=== PATIENT | male | born 1955 | race Caucasian/White ===

== ENCOUNTER 2024-07-27 08:21 | Outpatient (OUT) | payer MEDICARE, SELFPAY ==
[2024-07-27 08:50] LABS: Basophils Absolute Auto 0.1 10^3/uL (0.0-0.1); Basophils Percent Auto 0.6 % (0.2-2.0); Eosinophils Absolute Auto 0.3 10^3/uL (0.0-0.7); Eosinophils Percent Auto 2.4 % (0.9-7.0); Hematocrit 36.6 % (42.0-54.0); Hemoglobin 11.6 g/dL (14.0-18.0); Immature Granulocytes Pct Auto 0.9 % (0.0-0.5); Lymphocytes Absolute Auto 1.8 10^3/uL (1.2-3.8); Mean Corpuscular HGB Conc 31.7 g/dL (29.9-35.2); Mean Corpuscular Hemoglobin 29.1 pg (25.9-34.0); Monocytes Absolute Auto 0.8 10^3/uL (0.3-0.8); Monocytes Percent Auto 7.8 % (1.7-12.0); Neutrophils Absolute Auto 7.5 10^3/uL (1.4-6.5); Neutrophils Percent Auto 71.3 % (43.0-75.0); Platelet Count 387 10^3/uL (150-450); Red Blood Count 3.98 10^6/uL (4.70-6.10); Red Cell Distribution Width 14.5 % (11.0-15.0); White Blood Count 10.5 10^3/uL (4.0-11.0)
[2024-07-27 09:36] LABS: Alanine Aminotransferase 30 U/L (16-63); Albumin Globulin Ratio 0.9; Albumin Level 3.4 g/dL (3.4-5.0); Alkaline Phosphatase 66 U/L (46-116); Amylase 87 U/L (25-115); Anion Gap 14.4; Aspartate Amino Transferase 21 U/L (15-37); Bilirubin Direct 0.3 mg/dL (0.0-0.2); Bilirubin Total 0.7 mg/dL (0.2-1.0); Calcium 9.2 mg/dL (8.5-10.1); Carbon Dioxide 27.2 mmol/L (21.0-32.0); Chloride 102 mmol/L (98-107); Estimated GFR (African America 26 (>=60); Estimated GFR (Non-African Ame 21 (>=60); Globulin 3.6 g/dL; Glucose 242 mg/dL (74-106); Potassium 4.6 mmol/L (3.5-5.1); Sodium 139 mmol/L (136-145); TSH W/ REFLEX FT4 2.252 uIU/mL (0.358-3.740); Troponin I High Sensitivity 9.4 pg/mL (4.0-76.1)
== END 2024-07-27 08:22 | disposition home or self-care (01) ==
LOC: LAB 08:29
PROVIDERS: PCP Family Medicine; Visit Provider Family Medicine
DX: R53.83 Other fatigue (principal); Z79.899 Other long term (current) drug therapy; R10.84 Generalized abdominal pain; R07.2 Precordial pain; I25.10 Atherosclerotic heart disease of native coronary artery without angina pectoris
CPT/HCPCS: 36415; 80048; 80076; 82150; 83690; 84443; 84484; 85025

== ENCOUNTER 2024-08-01 07:01 | Outpatient (OUT) | payer MEDICARE, SELFPAY ==
--- NOTE | 2024-08-01 07:06 | US_ITS ---
The [address] [address] Patient Name: EMILEE CASTAÑEDA MRN: [id number] date: 1955 Sex: M Assigned Patient Location: [place] Current Patient Location: US Accession/Order Number: [id number] Exam Date: 08/01/2024 07:08 Report Date: 08/01/2024 08:10 At the request of: MOMO RUSH Procedure: US right upper quadrant EXAM: US right upper quadrant HISTORY: Generalized abdominal pain R10.84 COMPARISON: None. TECHNIQUE: Grayscale, color and Doppler FINDINGS: The liver measures 14.5 cm in length. The liver is normal in size, contour and echotexture. Hepatopedal flow in the main portal vein with velocity of 30 cm/s. The gallbladder is prominent in size. The wall is thickened measuring 6.5 mm. Negative sonographic Anand sign. The common bile duct measures 6.7 mm. Echogenic material layering dependently likely sludge/cholelithiasis. The visualized pancreatic body demonstrates no focal mass The right kidney measures 11.2 x 5.6 x 7.0 cm. The cortex is thinned measuring 8 mm. Diffuse increase in cortical echotexture. There is a hypoechogenic halo surrounding the kidney possibly perinephric fat No free fluid Call result initiated to operations US/US right upper quadrant IMPRESSION: Gallbladder wall thickening suggesting cholecystitis with underlying cholelithiasis/gallbladder sludge Electronically authenticated by: NANCY LUCIA Date: 08/01/2024 08:10
--- OUTSIDE RECORDS SUMMARY | 2024-08-01 07:06 | XMS_ITS | CCD ---
Author Organization [facility] Care Team Providers Care Meal Room Hand Name Role Phone UNKNOWN, PROVIDER Attending Unavailable ADRI, DUSTY REVELES Primary Care Unavailabl e Unavailable Unavailable Dusty Rush Unavailable Unavailable Unavailable MD Osvaldo Almonte Attending Provider NON STAFF Primary Care Provider Unavailabl e ADRI, DR DUSTY Alonso Admitting Unavailable NADEREJack, DR DUSTY Alonso Attending Unavailable NADERER, DR DUSTY Alonso Primary Care Unavailable NADERER, DR DUSTY Alonso Consulting Unavailable NADERER, DR DUSTY Alonso Admitting Unavailable NADERER, DR DUSTY Alonso Attending Unavailable NADERER, DR DUSTY Alonso Primary Care Unavailable NADERER, DR DUSTY Alonso Consulting Unavailable NADEREJack, DR DUSTY Alonso Admitting Unavailable NADEREJack, DR DUSTY Alonso Attending Unavailable NADEREJack, DR DUSTY Alonso Primary Care Unavailable NADERER, DR DUSTY Alonso Consulting Unavailable NADERER, DR DUSTY Alonso Primary Care Unavailable ELIEL, DR BLAKE Santiago Admitting Unavailable ELIEL, DR BLAKE Santiago Attending Unavailable ELIEL, DR BLAKE Santiago Consulting Unavailable PAY, DR HOLLINS Consulting Unavailable SOLE MENDOZA Consulting Unavailable CELAYA, GEOFFREY Consulting Unavailable MERINO, RADHA Consulting Unavailable NEFCYMINOO Consulting Unavailable NON STAFF Primary Care Provider Unavailabl DO Linden Roger Attending Provider [phone] Osvaldo Almonte Admitting Unavailable Osvaldo Almonte Attending Unavailable NON STAFF Primary Care Unavailable Linden Garnica Admitting Unavailable Linden Garnica Attending Unavailable NON STAFF Primary Care Unavailable Linden Garnica Unavailable Steven, Dr. Kris Stout Attending Unava jayde Harirs, Dr. Kris Stout Referring Meghava jayde Rush, Dr. Dusty Reveles Primary Care Unavai DUSTY Carlos Referring Unavailabl e NADERER, DUSTY REVELES Primary Care Unavailabl e NADDUSTY DIETZ Referring Unavailabl e NADERER, DUSTY REVELES Primary Care Unavailabl e NADNOEL, DUSTY Attending Unavailable Allergies Allergy Classification Reported Allergen(s) Allergy Type Date of Onset Reaction(s) Facility (13 sources) moxifloxacin; Translations: [Avelox TABS] Drug Allergy Swelling -[facility]-Dashawn 250 DO Work Phone: (1 source) moxifloxacin Drug Allergy 06-05-2013 [facility] Repository Medications Current Medications Medication Drug Class(es) Dates Sig (Normalized) Sig (Original) amoxicillin 875 mg / clavulanate 125 mg oral tablet (1 source) Penicillin-class Antibacterial Start: 04-07-2024 take 1 tablet by mouth every twelve hours Amoxicillin-Pot Clavulanate Active 1 TAB PO Every 12 hours 20 10 April 07, 2024 12:00am aspirin 81 mg delayed release oral tablet (7 sources) Platelet Aggregation Inhibitor, Nonsteroidal Anti-inflammatory Drug Start: 04-07-2024 Aspirin (Adult Low Dose Aspirin) 81 mg tablet,delayed release (DR/EC) Active 81 MG PO Daily April 07, 2024 12:00am take 1 tablet by mouth once luzmaria y Aspirin 81 MG Oral Tablet Delayed Release TAKE 1 TABLET DAILY. Quantity: 90 Refills: 3 Ordered: 29-Jul-2023 Kris Harris DO Active Aspirin 81 Activ e atenolol 25 mg oral tablet (8 sources) beta-Adrenergic Oleg Start: 04-07-2024 take 25 mg by mouth once daily Atenolol Active 25 MG PO Daily April 07, 2024 12:00am Start: 05-29-2021 take 1 tablet by bird th once daily Atenolol 100 MG Oral Tablet TAKE 1 TABLET DAILY. Quantity: 90 Refills: 3 Ordered: 29-Jul-2023 Kris Harris DO Start : 29-May-2021 Active Atenolol Active dapagliflozin 5 mg oral tablet (8 sources) Sodium-Glucose Cotransporter 2 Inhibitor Start: 04-07-2024 take 1 tablet by mouth once daily Dapagliflozin Propanediol (Farxiga) 5 mg tablet Active 5 MG PO Daily April 07, 2024 12:00am Start: 04-14-2022 take 1 tablet by bird th once daily in the morning Farxiga 10 MG Oral Tablet TAKE 1 TABLET BY MOUTH EVERY MORNING Quantity: 0 Refills: 0 Ordered: 14-Apr-2022 DO Start : 14-Apr-2022 Active Farxiga Active 0.5 ml dulaglutide 1.5 mg/ml auto-injector (3 sources) GLP-1 Receptor Agonist Start: 04-07-2024 Dulaglutide (Trulicity) 0.75 mg/0.5 mL pen injector Active 0.75 MG SUBCUT every week April 07, 2024 12:00am inject 1 [IU] by sub cutaneous injection every week Trulicity 1.5 MG/0.5ML Subcutaneous Solution Pen-injector INJECT 1 UNIT Weekly Quantity: 0 Refills: 0 Ordered: 29-Jul-2023 Active fenofibrate 50 mg oral capsule (16 sources) Peroxisome Proliferator Receptor alpha Agonist Start: 04-07-2024 take 50 mg by mouth once daily Fenofibrate Active 50 MG PO Daily April 07, 2024 12:00am Start: 08-21-2021 take 1 tablet by bird th once daily Fenofibrate 145 MG Oral Tablet Take 1 tablet daily Quantity: 90 Refills: 3 Ordered: 06-Aug-2022 Rut Magana Start : 21-Aug-2021 Active Fenofibrate Acti ve lisinopril 5 mg oral tablet (11 sources) Angiotensin Converting Enzyme Inhibitor Start: 04-07-2024 take 5 mg by mouth once daily Lisinopril Active 5 MG PO Daily April 07, 2024 12:00am Start: 12-30-2021 take 1 tablet by bird th once daily Lisinopril 2.5 MG Oral Tablet TAKE 1 TABLET DAILY. Quantity: 90 Refills: 3 Ordered: 31-Dec-2021 Kris Harris DO Start : 30-Dec-2021 Active take 1 tablet by bird th twice daily Lisinopril 2.5 MG Oral Tablet TAKE 1 TABLET TWICE DAILY. Quantity: 180 Refills: 2 Ordered: 29-Jul-2023 Kris Harris DO Active Lisinopril Activ e metFORMIN hydrochloride 500 mg oral tablet (8 sources) Biguanide Start: 04-07-2024 take 500 mg by mouth once daily Metformin Active 500 MG PO Daily April 07, 2024 12:00am Start: 05-29-2021 take 1 tablet by bird th once daily at mealtime metFORMIN HCl - 1000 MG Oral Tablet TAKE 1 TABLET DAILY WITH FOOD. Quantity: 0 Refills: 0 Ordered: 29-May-2021 DO Start : 29-May-2021 Active metFORMIN HCl Ac tive pioglitazone 15 mg oral tablet (8 sources) Peroxisome Proliferator Receptor alpha Agonist, Peroxisome Proliferator Receptor gamma Agonist, Thiazolidinedione Start: 04-07-2024 take 15 mg by mouth once daily Pioglitazone Active 15 MG PO Daily April 07, 2024 12:00am Start: 06-13-2021 take 1 tablet by bird th once daily Pioglitazone HCl - 45 MG Oral Tablet TAKE 1 TABLET ONCE DAILY. Quantity: 0 Refills: 0 Ordered: 13-Jun-2021 DO Start : 13-Jun-2021 Active Pioglitazone HCl Active rosuvastatin calcium 10 mg oral tablet (8 sources) HMG-CoA Reductase Inhibitor Start: 04-07-2024 take 10 mg by mouth once daily Rosuvastatin Active 10 MG PO Daily April 07, 2024 12:00am Start: 07-29-2023 take 1 tablet by bird th once daily Rosuvastatin Calcium 20 MG Oral Tablet TAKE 1 TABLET DAILY. Quantity: 90 Refills: 3 Ordered: 29-Jul-2023 Kris Harris DO Start : 29-Jul-2023 Active Start: 06-11-2021 take 1 tablet by bird th at bedtime Rosuvastatin Calcium 10 MG Oral Tablet TAKE 1 TABLET AT BEDTIME. Quantity: 90 Refills: 3 Ordered: 06-Aug-2022 Rut Magana Start : 11-Jun-2021 Active Rosuvastatin Carlos cium Active Triamterene-HCTZ (1 source) Triamterene-HCTZ Active Completed/Discontinued Medications Medication Drug Class(es) Dates Sig (Normalized) Sig (Original) atorvastatin 20 mg oral tablet (5 sources) HMG-CoA Reductase Inhibitor Start: 03-04-2022 take 1 tablet by mouth at bedtime Atorvastatin Calcium 20 MG Oral Tablet TAKE 1 TABLET AT BEDTIME Quantity: 90 Refills: 3 Ordered: 04-Mar-2022 Kris Harris DO Start : 04-Mar-2022 Active take 1 tablet by mouth at bedtim e Atorvastatin Calcium 20 MG Oral Tablet TAKE 1 TABLET AT BEDTIME Quantity: 90 Refills: 0 Ordered: 17-Dec-2021 Kris Harris DO Active cefdinir 300 mg oral capsule (2 sources) Cephalosporin Antibacterial Start: 11-25-2021 take 1 capsule by mouth twice daily Cefdinir 300 MG Oral Capsule take 1 capsule by mouth twice a day Quantity: 20 Refills: 0 Ordered: 25-Nov-2021 DO Start : 25-Nov-2021 Complete glipiZIDE 10 mg oral tablet (7 sources) Sulfonylurea Start: 05-29-2021 take 1 tablet by mouth twice daily glipiZIDE 10 MG Oral Tablet Take one twice daily Quantity: 0 Refills: 0 Ordered: 29-May-2021 DO Start : 29-May-2021 Active glipiZIDE Active hydroCHLOROthiazide 50 mg / triamterene 75 mg oral tablet (6 sources) Potassium-sparing Diuretic, Thiazide Diuretic Start: 05-29-2021 take 1 tablet by mouth once daily Triamterene-HCTZ 75-50 MG Oral Tablet TAKE 1 TABLET DAILY. Quantity: 90 Refills: 3 Ordered: 29-Jul-2023 Kris Harris DO Start : 29-May-2021 Active 3 ml liraglutide 6 mg/ml pen injector (5 sources) GLP-1 Receptor Agonist Start: 08-20-2021 inject 1.8 mg by subcutaneous injection once daily Victoza 18 MG/3ML Subcutaneous Solution Pen-injector INJECT 1.8 MG SUBCUTANEOUSLY EVERY DAY Quantity: 0 Refills: 0 Ordered: 20-Aug-2021 DO Start : 20-Aug-2021 Active Victoza Active 12 hr loratadine 5 mg / pseudoephedrine sulfate 120 mg extended release oral tablet (2 sources) alpha-Adrenergic Agonist Start: 06-11-2021 take 5-120 mg by mouth every twelve hours Claritin-D 12 Hour 5-120 MG Oral Tablet Extended Release 12 Hour take 1 tablet by mouth twice a day Quantity: 30 Refills: 0 Ordered: 27-Jul-2021 DO Start : 11-Jun-2021 Complete prednisoLONE acetate 10 mg/ml ophthalmic suspension (2 sources) Corticosteroid Start: 08-28-2021 take 1 drop(s) into the eye(s) every four hours prednisoLONE Acetate 1 % Ophthalmic Suspension INSTILL 1 DROP INTO EACH OPERATIVE EYE FOLLOWING SURGERY EVERY 4 HOURS WHILE AWAKE Quantity: 5 Refills: 0 Ordered: 07-Oct-2021 DO Start : 28-Aug-2021 Complete triamcinolone acetonide 40 mg/ml injectable suspension (1 source) Corticosteroid Start: 01-26-2023 Kenalog-40 Jan, 20 mg Problems Active Problems Problem Classification Problem Date Documented Date Episodic/Chronic Chronic kidney disease (9 sources) Chronic kidney disease stage 3; Translations: [Chronic kidney disease, Stage III (moderate)] Chronic Chronic kidney disease (2 sources) Chronic kidney disease; Translations: [Chronic kidney disease, stage 3b] Onset: 05-05-2024 Coronary atherosclerosis and other heart disease (12 sources) Atherosclerotic heart disease of tangirnaq coronary artery without angina pectoris; Translations: [Double coronary vessel disease] Onset: 01-06-2019 Chronic Coronary atherosclerosis and other heart disease (10 sources) Coronary angioplasty status; Translations: [Post percutaneous transluminal coronary angioplasty] Onset: 01-06-2019 Episodic Diabetes mellitus with complications (6 sources) Type 2 diabetes mellitus with hyperglycemia; Translations: [TYPE 2 DM W/HYPERGLYCEMIA] Onset: 12-08-2022 Chronic Diabetes mellitus without complication (11 sources) Type 2 diabetes mellitus without complications; Translations: [Diabetes mellitus] Onset: 01-06-2019 Chronic Disorders of lipid metabolism (20 sources) Hyperlipidemia, unspecified; Translations: [Hypercholesterolemia ] Onset: 01-06-2019 Chronic Essential hypertension (12 sources) Essential (primary) hypertension; Translations: [Benign essential hypertension] Onset: 01-06-2019 Chronic Nutritional deficiencies (3 sources) Vitamin D deficiency, unspecified; Translations: [VITAMIN D DEFICIENCY UNSPECIFIED] Onset: 05-29-2022 Chronic Other aftercare (3 sources) 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; Translations: [OTH USP CURRENT DRUG THERAPY] Onset: 05-29-2022 Episodic Other connective tissue disease (1 source) Olecranon bursitis, left elbow Episodic Other non-traumatic joint disorders (1 source) Pain in left elbow Episodic Other nutritional; endocrine; and metabolic disorders (7 sources) Obese class I; Translations: [Obesity, unspecified] Chronic Other nutritional; endocrine; and metabolic disorders (6 sources) Obesity; Translations: [Obesity, unspecified] Chronic Other nutritional; endocrine; and metabolic disorders (3 sources) Obesity, unspecified; Translations: [OBESITY UNSPECIFIED] Onset: 05-29-2022 Chronic Other screening for suspected conditions (not mental disorders or infectious disease) (3 sources) Encounter for screening for malignant neoplasm of prostate; Translations: [ENC SCREEN MALIG NEOPLASM PROSTATE] Onset: 05-29-2022 Episodic Other upper respiratory infections (2 sources) Acute maxillary sinusitis; Translations: [Acute maxillary sinusitis, unspecified] 04-07-2024 Episodic Peripheral and visceral atherosclerosis (5 sources) Peripheral vascular disease, unspecified; Translations: [PERIPHERAL VASCULAR DISEASE UNS] Onset: 12-10-2022 Chronic Screening and history of mental health and substance abuse codes (6 sources) Ex-smoker; Translations: [Personal history of tobacco use] Episodic Comment on above: Quit around the year , 1994; Unclassified (1 source) Pure hypercholesterolemia, unspecified Onset: 01-06-2019 Unclassified (1 source) Nicotine dependence, chewing tobacco, w oth disorders Onset: 01-06-2019 Unclassified (1 source) CONTACT W/AND (SUSP) EXPOS COVID-19; Translations: [CONTACT W/AND (SUSP) EXPOS COVID-19] Onset: 05-28-2022 Unclassified (1 source) Pain in left elbow; Translations: [Pain in left elbow] Onset: 01-26-2023 Unclassified (1 source) Spinal stenosis, lumbar region without neurogenic claudication; Translations: [Spinal stenosis, lumbar region without neurogenic claudication] Onset: 09-15-2022 Past or Other Problems Problem Classification Problem Date Documented Da te Episodic/Chronic Nonspecific chest pain (1 source) Other chest pain; Translations: [OTHER CHEST PAIN] Onset: 05-28-2022 Episodic Other aftercare (1 source) 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; Translations: [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] Onset: 05-28-2022 Episodic Other aftercare (1 source) long-term (current) use of oral hypoglycemic drugs; Translations: [OLIVING MACHINE OPERATOR USE ORAL HYPOGLYCEMIC DX] Onset: 05-28-2022 Episodic Other injuries and conditions due to external causes (1 source) History of falling; Translations: [HISTORY OF FALLING] Onset: 05-28-2022 Episodic Syncope (4 sources) Syncope and collapse; Translations: [SYNCOPE AND COLLAPSE] Onset: 05-26-2022 Episodic Results Test Name Value Interpretation Reference Range Facility Hemoglobin A1Con 07-02-2024 Glucose [Mass/Vol] 131 mg/dL Normal [facility] Comment on above: Result Comment: The ADA and AACC recommend providing the estimated average glucose result to permit better patient understanding of their HBA1c result. Performed By: #### B MP, CDP, LIVP, TSH #### [address] [place], [place] [phone] Pass Worker: Chidi Restrepo MD #### URNMAB, GLYHGB, LIPR, VD25, PSAS #### [address] [phone] Pass Worker: Obey Thorpe MD HbA1c (Bld) [Mass fraction] 6.2 % High 4.0-6.0 [facility] Comment on above: Performed By: #### B MP, CDP, LIVP, TSH #### [address] [place] [phone] Pass Worker: Chidi Restrepo MD #### URNMAB, GLYHGB, LIPR, VD25, PSAS #### [address] [phone] Pass Worker: Obye Thorpe MD Lipid Profileon 07-02-2024 Cholesterol [Mass/Vol] 165 mg/dL Normal 0-199 [facility] Comment on above: Result Comment: Cholesterol Guidelines: <200 Desirable 200-240 Borderline >240 Undesirable Performed By: #### B MP, CDP, LIVP, TSH #### [address] [place] [phone] Pass Worker: Chidi Restrepo MD #### URNMAB, GLYHGB, LIPR, VD25, PSAS #### [address] [phone] Pass Worker: Obey Thorpe MD Cholesterol in HDL [Mass/Vol] 40 mg/dL Low >40 [facility] Comment on above: Result Comment: HDL Guidelines: <40 Undesirable 40-59 Borderline >59 Desirable Performed By: #### B MP, CDP, LIVP, TSH #### [facility] [address] [place] [address] Dr[place], [place] [phone] Pass Worker: Chidi Restrepo MD #### URNMAB, GLYHGB, LIPR, VD25, PSAS #### [place] [id number] [place], [place] [id number] Pass Worker: Obey Thorpe MD Cholesterol in LDL [Mass/Vol] 101 mg/dL High 0-100 [facility] Comment on above: Result Comment: LDL Guidelines: <100 Desirable 100-129 Near to/above Desirable 130-159 Borderline >159 Undesirable Direct (measured) LDL and calculated LDL are not interchangeable tests. Performed By: #### B MP, CDP, LIVP, TSH #### [address] [place], [place] [phone] Pass Worker: Chidi Restrepo MD #### URNMAB, GLYHGB, LIPR, VD25, PSAS #### [place] [address] [place], [place] [id number] Pass Worker: Obey Thorpe MD Cholesterol in VLDL [Mass/Vol] 24 mg/dL Normal [facility] Comment on above: Performed By: #### B MP, CDP, LIVP, TSH #### [address] [place], [place] [phone] Pass Worker: Chidi Restrepo MD #### URNMAB, GLYHGB, LIPR, VD25, PSAS #### [place] [place], [place] [phone] Pass Worker: Obey Thorpe MD Cholesterol.total/Ch olesterol in HDL [Mass ratio] 4.0 {ratio} Normal [facility] Comment on above: Performed By: #### B MP, CDP, LIVP, TSH #### [facility] [address] [place] [address] [place], [place] [phone] Pass Worker: Chidi Restrepo MD #### URNMAB, GLYHGB, LIPR, VD25, PSAS #### [place] [place], [place] [phone] Pass Worker: Obey Thorpe MD Triglyceride [Mass/Vol] 118 mg/dL Normal <150 [facility] Comment on above: Result Comment: Triglyceride Guidelines: <150 Desirable 150-199 Borderline 200-499 High >499 Very high Based on AHA Guidelines for fasting triglyceride, August 2012. Performed By: #### B MP, CDP, LIVP, TSH #### [address] [place] [address] Pass Worker: Chidi Restrepo MD #### URNMAB, GLYHGB, LIPR, VD25, PSAS #### [place] [address] [place], [place] [phone] Pass Worker: Obey Thorpe MD Vitamin D 25 OHon 07-02-2024 Vitamin D 25 [place] 19.9 ng/mL Low 30.0-100.0 [facility] Comment on above: Result Comment: Reference Range: Vitamin D status Range Deficiency <20 ng/mL Mild Deficiency 20-30 ng/mL Sufficiency 30-100 ng/mL Toxicity >100 ng/mL Performed By: #### B MP, CDP, LIVP, TSH #### [address] [place] [address] Pass Worker: Chidi Restrepo MD #### URNMAB, GLYHGB, LIPR, VD25, PSAS #### [facility] [address] [place], [place] [id number] Pass Worker: Obey Thorpe MD Basic Metabolic Profon 07-01 Anion gap [Moles/Vol] 11 mmol/L Normal 08-02 [facility] Comment on above: Performed By: #### B MP, CDP, LIVP, TSH #### [facility] [address] [place] [address] [place] [address] Pass Worker: Chidi Restrpeo MD #### URNMAB, GLYHGB, LIPR, VD25, PSAS #### [place] [address] [place] [address] Pass Worker: Obey Thorpe MD BUN/CRE Ratio 22 High 9-20 [facility] Comment on above: Performed By: #### B MP, CDP, LIVP, TSH #### [address] [place], [place] [phone] Pass Worker: Chidi Restrepo MD #### URNMAB, GLYHGB, LIPR, VD25, PSAS #### [address] [id number] Pass Worker: Obey Thorpe MD Calcium [Mass/Vol] 9.0 mg/dL Normal 8.6-10.4 [facility] Comment on above: Performed By: #### B MP, CDP, LIVP, TSH #### [address] [place], [place] [phone] Pass Worker: Chidi Restrepo MD #### URNMAB, GLYHGB, LIPR, VD25, PSAS #### [address] [id number] Pass Worker: Obey Thorpe MD Chloride [Moles/Vol] 106 mmol/L Normal 98-107 [facility] Comment on above: Performed By: #### B MP, CDP, LIVP, TSH #### [address] [place], [place] [phone] Pass Worker: Chidi Restrepo MD #### URNMAB, GLYHGB, LIPR, VD25, PSAS #### [address] [id number] Pass Worker: Obey Thorpe MD CO2 [Moles/Vol] 22 mmol/L Normal 20-31 [facility] Comment on above: Performed By: #### B MP, CDP, LIVP, TSH #### [facility] [address] [place] [address] [place] [address] Pass Worker: Chidi Restrepo MD #### URNM, GLYHGB, LIPR, VD25, PSAS #### [place] [address] [place], [place] [id number] Pass Worker: Obey Thorpe MD Creatinine [Mass/Vol] 2.3 mg/dL High 0.7-1.2 [facility] Comment on above: Performed By: #### B MP, CDP, LIVP, TSH #### [address] [place] [address] Pass Worker: Chidi Restrepo MD #### URNMAB, GLYHGB, LIPR, VD25, PSAS #### [place] [address] [place] [address] Pass Worker: Obey Thorpe MD GFR/1.73 sq M.predicted among non-blacks MDRD (S/P/Bld) [Vol rate/Area] 30 mL/min/{1.73_m2} Low >60 [facility] Comment on above: Result Comment: These results are not intended for use in patients <18 years of age. eGFR results are calculated without a race factor using the 2020 CKD-EPI equation. Careful clinical correlation is recommended, particularly when comparing to results calculated using previous equations. The CKD-EPI equation is less accurate in patients with extremes of muscle mass, extra-renal metabolism of creatine, excessive creatine ingestion, or following therapy that affects renal tubular secretion. Performed By: #### B MP, CDP, LIVP, TSH #### [address] [place] [address] Pass Worker: Chidi Restrepo MD #### URNMAB, GLYHGB, LIPR, VD25, PSAS #### [place] [address] [place], [place] [id number] Pass Worker: Obey Thorpe MD Glucose [Mass/Vol] 133 mg/dL High 70-99 [facility] Comment on above: Performed By: #### B MP, CDP, LIVP, TSH #### [address] [place], [place] [phone] Pass Worker: Chidi Restrepo MD #### URNMAB, GLYHGB, LIPR, VD25, PSAS #### [address] [id number] Pass Worker: Obey Thorpe MD Potassium [Moles/Vol] 4.7 mmol/L Normal 3.7-5.3 [facility] Comment on above: Performed By: #### B MP, CDP, LIVP, TSH #### [address] [place], [place] [phone] Pass Worker: Chidi Restrepo MD #### URNMAB, GLYHGB, LIPR, VD25, PSAS #### [address] [id number] Pass Worker: Obey Thorpe MD Sodium [Moles/Vol] 139 mmol/L Normal 135-144 [facility] Comment on above: Performed By: #### B MP, CDP, LIVP, TSH #### [address] [place], [place] [phone] Pass Worker: Chidi Restrepo MD #### URNMAB, GLYHGB, LIPR, VD25, PSAS #### [address] [id number] Pass Worker: Obey Thorpe MD Urea nitrogen [Mass/Vol] 50 mg/dL High 8-23 [facility] Comment on above: Performed By: #### B MP, CDP, LIVP, TSH #### [address] [place], [place] [phone] Pass Worker: Chidi Restrepo MD #### URNMAB, GLYHGB, LIPR, VD25, PSAS #### [address] [id number] Pass Worker: Obey Thorpe MD CBC with Diffon 07-01-2024 Abs. Basophil 0.06 k/uL Normal 0.00-0.20 [facility] Comment on above: Performed By: #### B MP, CDP, LIVP, TSH #### [address] [place] [phone] Pass Worker: Chidi Restrepo MD #### URNMAB, GLYHGB, LIPR, VD25, PSAS #### [place] [address] Pass Worker: Obey Thorpe MD Abs.Imm.Granulocyte 0.05 k/uL Normal 0.00-0.30 [facility] Comment on above: Performed By: #### B MP, CDP, LIVP, TSH #### [address] [place] [phone] Pass Worker: Chidi Restrepo MD #### URNMAB, GLYHGB, LIPR, VD25, PSAS #### [place] [address] Pass Worker: Obey Thorpe MD Abs.Neutrophil (Seg) 5.18 k/uL Normal 1.50-8.10 [facility] Comment on above: Performed By: #### B MP, CDP, LIVP, TSH #### [address] [place] [address] Pass Worker: Chidi Restrepo MD #### URNMAB, GLYHGB, LIPR, VD25, PSAS #### [place] [address] Pass Worker: Obey Thorpe MD Basophils/100 WBC (Bld) 1 % Normal 0-2 [facility] Comment on above: Performed By: #### B MP, CDP, LIVP, TSH #### [address] [place] [phone] Pass Worker: Chidi Restrepo MD #### URNMAB, GLYHGB, LIPR, VD25, PSAS #### [address] [phone] Pass Worker: Obey Thorpe MD Eosinophils (Bld) [#/Vol] 0.21 10*3/uL Normal 0.00-0.44 [facility] Comment on above: Performed By: #### B MP, CDP, LIVP, TSH #### [facility] [address] [place] [address] Dr. [place] [phone] Pass Worker: Chidi Restrepo MD #### URNMAB, GLYHGB, LIPR, VD25, PSAS #### [place] [address] Pass Worker: Obey Thorpe MD Eosinophils/100 WBC (Bld) 3 % Normal 1-4 [facility] Comment on above: Performed By: #### B MP, CDP, LIVP, TSH #### [address] [place] [phone] Pass Worker: Chidi Restrepo MD #### URNMAB, GLYHGB, LIPR, VD25, PSAS #### [place] [id number] Pass Worker: Obey Thorpe MD Erythrocyte distribution width (RBC) [Ratio] 14.7 % High 11.8-14.4 [facility] Comment on above: Performed By: #### B MP, CDP, LIVP, TSH #### [address] [place] [phone] Pass Worker: Chidi Restrepo MD #### URNMAB, GLYHGB, LIPR, VD25, PSAS #### [address] [phone] Pass Worker: Obey Thorpe MD Hematocrit (Bld) [Volume fraction] 37.8 % Low 40.7-50.3 [facility] Comment on above: Performed By: #### B MP, CDP, LIVP, TSH #### [address] [place] [phone] Pass Worker: Chidi Restrepo MD #### URNMAB, GLYHGB, LIPR, VD25, PSAS #### [address] [phone] Pass Worker: Obey Thorpe MD Hemoglobin (Bld) [Mass/Vol] 12.3 g/dL Low 13.0-17.0 [facility] Comment on above: Performed By: #### B MP, CDP, LIVP, TSH #### [address] [place] [phone] Pass Worker: Chidi Restrepo MD #### URNMAB, GLYHGB, LIPR, VD25, PSAS #### [place] [phone] Pass Worker: Obey Thorpe MD Immature granulocytes/100 WBC (Bld) 1 % High 0 [facility] Comment on above: Performed By: #### B MP, CDP, LIVP, TSH #### [address] [place] [phone] Pass Worker: Chidi Restrepo MD #### URNMAB, GLYHGB, LIPR, VD25, PSAS #### [address] [phone] Pass Worker: Obey Thorpe MD Lymphocytes (Bld) [#/Vol] 1.57 10*3/uL Normal 1.10-3.70 [facility] Comment on above: Performed By: #### B MP, CDP, LIVP, TSH #### [address] [place] [phone] Pass Worker: Chidi Restrepo MD #### URNMAB, GLYHGB, LIPR, VD25, PSAS #### [place] [address] [place], [place] [phone] Pass Worker: Obey Thorpe MD Lymphocytes/100 WBC (Bld) 20 % Low 24-43 [facility] Comment on above: Performed By: #### B MP, CDP, LIVP, TSH #### [address] [place] [phone] Pass Worker: Chidi Restrepo MD #### URNMAB, GLYHGB, LIPR, VD25, PSAS #### [place] [phone] [place], [place] [phone] Pass Worker: Obey Thorpe MD MCH (RBC) [Entitic mass] 29.9 pg Normal 25.2-33.5 [facility] Comment on above: Performed By: #### B MP, CDP, LIVP, TSH #### [address] [place] [phone] Pass Worker: Chidi Restrepo MD #### URNMAB, GLYHGB, LIPR, VD25, PSAS #### [place] [phone] [place], [place] [phone] Pass Worker: Obey Thorpe MD MCHC (RBC) [Mass/Vol] 32.5 g/dL Normal 28.4-34.8 [facility] Comment on above: Performed By: #### B MP, CDP, LIVP, TSH #### [address] [place] [address] Pass Worker: Chidi Restrepo MD #### URNMAB, GLYHGB, LIPR, VD25, PSAS #### [place] [phone] [place], [place] [phone] Pass Worker: Obey Thorpe MD MCV (RBC) [Entitic vol] 92.0 fL Normal 82.6-102.9 [facility] Comment on above: Performed By: #### B MP, CDP, LIVP, TSH #### [address] [place], [place] [phone] Pass Worker: Chidi Restrepo MD #### URNMAB, GLYHGB, LIPR, VD25, PSAS #### [address] [phone] Pass Worker: Obey Thorpe MD Monocytes (Bld) [#/Vol] 0.64 10*3/uL Normal 0.10-1.20 [facility] Comment on above: Performed By: #### B MP, CDP, LIVP, TSH #### [address] [place], [place] [phone] Pass Worker: Chidi Restrepo MD #### URNMAB, GLYHGB, LIPR, VD25, PSAS #### [address] [phone] Pass Worker: Obey Thorpe MD Monocytes/100 WBC (Bld) 8 % Normal 3-12 [facility] Comment on above: Performed By: #### B MP, CDP, LIVP, TSH #### [address] [place], [place] [phone] Pass Worker: Chidi Restrepo MD #### URNMAB, GLYHGB, LIPR, VD25, PSAS #### [address] [phone] Pass Worker: Obey Thorpe MD Neutrophil (Seg) 67 % High 36-65 [facility] Comment on above: Performed By: #### B MP, CDP, LIVP, TSH #### [address] [place], [place] [phone] Pass Worker: Chidi Restrepo MD #### URNMAB, GLYHGB, LIPR, VD25, PSAS #### [address] [phone] Pass Worker: Obey Thorpe MD NRBC Automated 0.0 per 100 WBC Normal 0.0 [facility] Comment on above: Performed By: #### B MP, CDP, LIVP, TSH #### [address] [place] [phone] Pass Worker: Chidi Restrepo MD #### URNMAB, GLYHGB, LIPR, VD25, PSAS #### [address] [phone] Pass Worker: Obey Thorpe MD Platelet mean volume (Bld) [Entitic vol] 10.6 fL Normal 8.1-13.5 [facility] Comment on above: Performed By: #### B MP, CDP, LIVP, TSH #### [address] [place] [phone] Pass Worker: Chidi Restrepo MD #### URNMAB, GLYHGB, LIPR, VD25, PSAS #### [address] [phone] Pass Worker: Obey Thorpe MD Platelets (Bld) [#/Vol] 210 10*3/uL Normal 138-453 [facility] Comment on above: Performed By: #### B MP, CDP, LIVP, TSH #### [address] [place] [phone] Pass Worker: Chidi Restrepo MD #### URNMAB, GLYHGB, LIPR, VD25, PSAS #### [address] [phone] Pass Worker: Obey Thorpe MD RBC (Bld) [#/Vol] 4.11 10*6/uL Low 4.21-5.77 [facility] Comment on above: Performed By: #### B MP, CDP, LIVP, TSH #### [address] [place], [place] [phone] Pass Worker: Chidi Restrepo MD #### URNMAB, GLYHGB, LIPR, VD25, PSAS #### [address] [phone] Pass Worker: Obey Thorpe MD WBC (Bld) [#/Vol] 7.7 10*3/uL Normal 3.5-11.3 [facility] Comment on above: Performed By: #### B MP, CDP, LIVP, TSH #### [address] [place] [address] Pass Worker: Chidi Restrepo MD #### URNMAB, GLYHGB, LIPR, VD25, PSAS #### [address] [phone] Pass Worker: Obey Thorpe MD Liver Profileon 07-01-2024 Albumin [Mass/Vol] 4.5 g/dL Normal 3.5-5.2 [facility] Comment on above: Performed By: #### B MP, CDP, LIVP, TSH #### [address] [place] [address] Pass Worker: Chidi Restrepo MD #### URNMAB, GLYHGB, LIPR, VD25, PSAS #### [address] [phone] Pass Worker: Obey Thorpe MD Albumin/Glob Ratio 1.7 Normal 1.0-2.5 [facility] Comment on above: Performed By: #### B MP, CDP, LIVP, TSH #### [address] [place] [address] Pass Worker: Chidi Restrepo MD #### URNMAB, GLYHGB, LIPR, VD25, PSAS #### [address] [place] [address] Pass Worker: Obey Thorpe MD Alkaline Phos 36 U/L Low 40-129 [facility] Comment on above: Performed By: #### B MP, CDP, LIVP, TSH #### [facility] [address] [place] [address] Dr. [place], [place] [phone] Pass Worker: Chidi Restrepo MD #### URNMAB, GLYHGB, LIPR, VD25, PSAS #### [address] [phone] Pass Worker: Obey Thorpe MD ALT [Catalytic activity/Vol] 17 U/L Normal 5-41 [facility] Comment on above: Performed By: #### B MP, CDP, LIVP, TSH #### [address] [place], [place] [phone] Pass Worker: Chidi Restrepo MD #### URNMAB, GLYHGB, LIPR, VD25, PSAS #### [address] [id number] Pass Worker: Obey Thorpe MD AST [Catalytic activity/Vol] 23 U/L Normal <40 [facility] Comment on above: Performed By: #### B MP, CDP, LIVP, TSH #### [address] [place], [place] [phone] Pass Worker: Chidi Restrepo MD #### URNMAB, GLYHGB, LIPR, VD25, PSAS #### [address] [address] Pass Worker: Obey Thorpe MD Bilirubin [Mass/Vol] 0.4 mg/dL Normal 0.3-1.2 [facility] Comment on above: Performed By: #### B MP, CDP, LIVP, TSH #### [facility] [address] [place] [address] Dr. [place], [place] [phone] Pass Worker: Chidi Restrepo MD #### URNMAB, GLYHGB, LIPR, VD25, PSAS #### [address] [phone] Pass Worker: Obey Thorpe MD Bilirubin, Indirect Can not be calculated Normal 0.0-1.0 [facility] Comment on above: Performed By: #### B MP, CDP, LIVP, TSH #### [address] [place], [place] [phone] Pass Worker: Chidi Restrepo MD #### URNMAB, GLYHGB, LIPR, VD25, PSAS #### [address] [phone] Pass Worker: Obey Thorpe MD Bilirubin.indirect [Mass/Vol] mg/dL Normal <0.3 [facility] Comment on above: Performed By: #### B MP, CDP, LIVP, TSH #### [address] [place], [place] [phone] Pass Worker: Chidi Restrepo MD #### URNMAB, GLYHGB, LIPR, VD25, PSAS #### [address] [phone] Pass Worker: Obey Thorpe MD Protein [Mass/Vol] 7.1 g/dL Normal 6.4-8.3 [facility] Comment on above: Performed By: #### B MP, CDP, LIVP, TSH #### [address] [place], [place] [phone] Pass Worker: Chidi Restrepo MD #### URNMAB, GLYHGB, LIPR, VD25, PSAS #### [address] [phone] Pass Worker: Obey Thorpe MD Microalb.,Random Uron 2023 Creatinine [Mass/Vol] 58.5 mg/dL Normal 39.0-259.0 [facility] Comment on above: Performed By: #### B MP, CDP, LIVP, TSH #### [address] [place], [place] [phone] Pass Worker: Chidi Restrepo MD #### URNMAB, GLYHGB, LIPR, VD25, PSAS #### [address] [phone] Pass Worker: Obey Thorpe MD Microalb/Creat Ratio Can not be calculated Normal 0.0-17.0 [facility] Comment on above: Performed By: #### B MP, CDP, LIVP, TSH #### [address] [place] [phone] Pass Worker: Chidi Restrepo MD #### URNMAB, GLYHGB, LIPR, VD25, PSAS #### [address] [phone] Pass Worker: Obey Thorpe MD Microalbumin conc. <12 Normal 0-20 [facility] Comment on above: Performed By: #### B MP, CDP, LIVP, TSH #### [address] [place] [phone] Pass Worker: Chidi Restrepo MD #### URNMAB, GLYHGB, LIPR, VD25, PSAS #### [place] [address] [place], [place] [phone] Pass Worker: Obey Thorpe MD PSA, Screeningon 07-01-2024 Prostatic Spec. Ag 4.30 ng/mL High 0.00-4.00 [facility] Comment on above: Result Comment: The Tony ECLIA assay is used. Results obtained with different assay methods cannot be used interchangeably. Performed By: #### B MP, CDP, LIVP, TSH #### [address] [place] [address] Pass Worker: Chidi Restrepo MD #### URNMAB, GLYHGB, LIPR, VD25, PSAS #### [address] [place] [address] Pass Worker: Obey Thorpe MD Thyroid Stim. Horm.on 2023 Thyroid Stim. Horm. 1.26 uIU/mL Normal 0.30-5.00 [facility] Comment on above: Performed By: #### B MP, CDP, LIVP, TSH #### [facility] [address] [place] [address] Pass Worker: Chidi Restrepo MD #### JEAN, GLYHGB, LIPR, VD25, PSAS #### [facility] [employer] [address] [place] [address] Pass Worker: Obey Thorpe MD Office Visit (Cardiology)on 07-29-2023 Follow-up visit Diagnoses/Problems Assessed 2-vessel coronary artery disease (414.00) (I25.10) History of PTCA 1 (V45.82) (Z98.61) Diabetes (250.00) (E11.9) Hyperlipidemia (272.4) (E78.5) Chronic renal insufficiency, stage 3 (moderate) (585.3) (N18.30) Benign essential hypertension (401.1) (I10) Class 1 obesity with body mass index (BMI) of 32.0 to 32.9 in adult (278.00,V85.32) (E66.9,Z68.32) Former smoker (V15.82) (Z87.891) Quit around the year, 1994 Orders 2-vessel coronary artery disease Changed: From Aspirin EC 81 MG TBEC TAKE 1 TABLET DAILY To Aspirin 81 MG Oral Tablet Delayed Release TAKE 1 TABLET DAILY Benign essential hypertension Renew: Lisinopril 2.5 MG Oral Tablet; TAKE 1 TABLET TWICE DAILY Renew: Triamterene-HCTZ 75-50 MG Oral Tablet; TAKE 1 TABLET DAILY Benign essential hypertension, History of PTCA 1 Renew: Atenolol 100 MG Oral Tablet; TAKE 1 TABLET DAILY Class 1 obesity with body mass index (BMI) of 32.0 to 32.9 in adult Healthy Weight Tips; Status:Complete - Retrospective Authorization; Done: [id number] Some eating tips that can help you lose weight.; Status:Complete - Retrospective Authorization; Done: [id number] Hyperlipidemia Start: Rosuvastatin Calcium 20 MG Oral Tablet; TAKE 1 TABLET DAILY SocHx: Former smoker Tobacco Use Screening; Status:Complete; Done: [id number] Patient Instructions Please bring all medicines, vitamins, and herbal supplements with you when you come to the office. Prescriptions will not be filled unless you are compliant with your follow up appointments or have a follow up appointment scheduled as per instruction of your physician. Refills should be requested at the time of your visit. Fall prevention education given Follow up in 1 year. Chief Complaint AMOS CASTAÑEDA is being seen for an annual follow-up of. 67-year-old gentleman returns for follow-up and doing very well. He has no cardiovascular complaints, events or nitrate usage or recurrent hospitalizations. He said remote PCI's of the circumflex and diagonal branch with follow-up stress testing last year that was normal in 2021. PCI's date back to 2013. He has underlying diabetes, chronic kidney disease, hyperlipidemia, and more recently development of neuropathy from his diabetes with associated falls this past year. We have counseled him on safety and fall prevention His most recent LDL is 118 and serum creatinine 2.0 Recommendations, continue current therapies, increase rosuvastatin to 20 mg daily with follow-up lipid panel, will follow-up in 1 year Surgical History Problems History of Appendectomy History of Cardiac catheterization History of Complete colonoscopy History of Hernia repair History of Tonsillectomy History of Vasectomy History of Surgery Vas Deferens Vasectomy Current Meds Medication NameInstruction Aspirin EC 81 MG TBECTAKE 1 TABLET DAILY. Atenolol 100 MG Oral TabletTAKE 1 TABLET DAILY. Farxiga 10 MG Oral TabletTAKE 1 TABLET BY MOUTH EVERY MORNING Fenofibrate 145 MG Oral TabletTake 1 tablet daily glipiZIDE 10 MG Oral TabletTake one twice daily Lisinopril 2.5 MG Oral TabletTAKE 1 TABLET TWICE DAILY. metFORMIN HCl - 1000 MG Oral TabletTAKE 1 TABLET EVERY 12 HOURS DAILY. Pioglitazone HCl - 45 MG Oral TabletTAKE 1 TABLET ONCE DAILY. Rosuvastatin Calcium 10 MG Oral TabletTAKE 1 TABLET AT BEDTIME. Triamterene-HCTZ 75-50 MG Oral TabletTAKE 1 TABLET DAILY. Trulicity 1.5 MG/0.5ML Subcutaneous Solution Pen-injectorINJECT 1 UNIT Weekly Patient did not bring medication list or bottles. Updated verbally with patient Allergies Medication Avelox TABS Adverse Reaction; Swelling; Recorded By: Darleen Byrd; 12/13/2021 2:13:14 PM Social History Problems Caffeine use (V49.89) (Z78.9) 2 cups coffee daily Former smoker (V15.82) (Z87.891) Quit around the year, 1994 No illicit drug use Occasional alcohol use Review of Systems Constitutional: not feeling tired. Cardiovascular: no intermittent leg claudication and as noted in HPI. Respiratory: no cough and no shortness of breath. Gastrointestinal: no change in bowel habits and no blood in stools. Integumentary: no skin rashes. Neurological: no seizures and no frequent falls. All other systems have been reviewed and are negative for complaint. Vitals Vital Signs Recorded: [id number] 11:20AM Heart Rate66, R Radial Ywrtgiej140, RUE, Sitting Vcpxugncx38, RUE, Sitting Height5 ft 11 in Xfmolg929 lb BMI Fwqelcnqts00.92 kg/m2 BSA Calculated2.26 Tobacco Useb) No PHQ-2 #1. Over the last 2 weeks have you felt down, depressed or hopeless? (If yes, answer PHQ-9 below)No PHQ-2 #2. Over the last 2 weeks have you felt little interest or pleasure in doing things? (If yes, answer PHQ-9 below)No Falls Screening (Age 18+)b) One or more falls in the last year Signatures Electronically signed by : Kris Harris DO; Jul 29 2023 1:05PM EST (Author) Normal Valentin Uzhun Tobacco Screening.on 023 Adult depression screening assessment No [facility] DO Work Phone: Fall risk assessment b) One or more fall s in the last year [facility] DO Work Phone: Tobacco use status [facility] b) No [facility] DO Work Phone: XR elbow LT 2Von 03-13-2023 XR elbow LT 2V [facility] [address] [place] [address] [place] [address] XRay Report Signed Patient: Amos Castañeda MR#: [id number] 4 : 1955 Acct:[id number] Age/Sex: 67 / M ADM Date: 01/26/23 Loc: [facility] [place] Room: Type: [facility] Attending Dr: Linden Garnica DO Copies to: Linden Garnica DO Ordering Provider: Linden Garnica DO Date of Service: 01/26/23 XR/XR elbow LT 2V: Left elbow pain LEFT ELBOW - 2 views CLINICAL HISTORY: Left elbow pain for 2 weeks after fall. COMPARISON: None FINDINGS: There is soft tissue evidence of olecranon bursitis. No acute bony process is seen. XR/XR elbow LT 2V IMPRESSION: EVIDENCE OF OLECRANON BURSITIS. NO ACUTE BONY PROCESS IS SEEN. Impression dictated by: Lane Wilkes Jr., D.OPreston01/26/2023 3:18 PM Dictation Location: [place] [address] Transcribed By: [facility] 01/26/23 1518 Dictated By: Lane Wilkes Jr, DO 01/26/23 1518 Signed By: 01/26/23 1518 Normal [facility] XR elbow LT 2V [facility] [employer] Other XR elbow LT 2V [facility] [employer] Other XR elbow LT 2V [address] [place] [address] [email or web address] Other XR elbow LT [address] [address] No rt [employer] Other XR elbow LT 2V XRay Report [employer] Other XR elbow LT 2V Signed [employer] Other XR elbow LT 2V Patient: Amos Castañeda MR#: [id number] [place] [employer] Other XR elbow LT 2V 4 [employer] Other XR elbow LT 2V : 1955 Acct:[id number] [employer] Other XR elbow LT 2V Age/Sex: 67 / M ADM Date: 01/26/23 [employer] Other XR elbow LT 2V Loc: [facility] Room: Type: [facility] [employer] Other XR elbow LT 2V Attending Dr: Linden Garnica DO [employer] Other XR elbow LT 2V Copies to: Linden Garnica DO [employer] Other XR elbow LT 2V Ordering Provider: Linden Garnica DO [employer] Other XR elbow LT 2V Date of Service: 01/26/23 [employer] Other XR elbow LT 2V XR/XR elbow LT 2V: Left elbow pain [employer] Other XR elbow LT 2V LEFT ELBOW - 2 views [employer] Other XR elbow LT 2V CLINICAL HISTORY: Left elbow pain for 2 weeks after fall. [employer] Other XR elbow LT 2V COMPARISON: None [employer] Other XR elbow LT 2V FINDINGS: [employer] Other XR elbow LT 2V There is soft tissue evidence of olecranon bursitis. No acute bony process is seen. [employer] Other XR elbow LT 2V XR/XR elbow LT 2V [employer] Other XR elbow LT 2V IMPRESSION: [employer] Other XR elbow LT 2V EVIDENCE OF OLECRANON BURSITIS. NO ACUTE BONY PROCESS IS SEEN. [employer] Other XR elbow LT 2V Impression dictated by: Lane Wilkes Jr. DPrestonOPreston01/26/2023 3:18 PM [employer] Other XR elbow LT 2V Dictation Location: [place] [address] [employer] Other XR elbow LT 2V Transcribed By: PWS 01/26/23 [facility] [employer] Other XR elbow LT 2V Dictated By: Lane Wilkes Jr, DO 01/26/23 2483 [employer] Other XR elbow LT 2V Signed By: [employer] Other XR elbow LT 2V 01/26/23 0939 [employer] Other GLYCOHEMOGLOBIN A1Con 2022 ADA RECOMMENDATION SEE BELOW Normal [facility] Comment on above: Result Comment: ADA RECOMMENDED LIMIT 4.0 - 6.0 ADA THERAPEUTIC TARGET < 7.0 ACTION SUGGESTED > 7.0 Performed By: #### C VDTBH #### [facility] [address] [place] [address] [address] Lior Buckley Glucose [Mass/Vol] 137 mg/dL Normal [facility] Comment on above: Performed By: #### C VDTBH #### [facility] [address] [place] [address] [address] Lior Buckley HbA1c (Bld) [Mass fraction] 6.4 % Critically high 4.5-6.2 [facility] Comment on above: Performed By: #### C VDTBH #### [facility] [address] [place] [address] [address] Lior Buckley XR pre/post mri xrayon 09-15 XR pre/post mri xray [place] [address] MRI Report Signed Patient: Amos Castañeda MR#: [id number] 4 : 1955 Acct:[id number] Age/Sex: 66 / M ADM Date: 09/15/22 [facility]: Type: [facility] Attending Dr: Osvaldo Almonte MD Copies to: Osvaldo Almonte MD Ordering Provider: Osvaldo Almonte MD Date of Service: 09/15/22 MR/MR lumbar spine wo con: LUMBAR STENOSIS ([id number]) XR/XR pre/post mri xray: LUMBAR STENOSIS MR lumbar spine wo con, XR pre/post mri xray 09/15/2022 1:33 PM SIGNS AND SYMPTOMS: Chronic low back pain with left-sided radiculopathy. Drop foot on right. PROTOCOL: Multiplanar multisequence MR images of the lumbar spine were obtained without IV contrast. Frontal and lateral radiographs of the lumbar spine were obtained. COMPARISON: None. FINDINGS: Radiographs of the lumbar spine: The bones of the lumbar spine are in anatomic alignment. There is preservation of vertebral body heights. There is moderate disc height loss at L4-L5 with mild disc height loss throughout otherwise. There is anterior osteophyte formation at L3-L4 and L4-L5. There is facet hypertrophy throughout. There is no fracture or subluxation. Atherosclerotic changes are noted in the abdominal aorta. MRI of lumbar spine: The bones of the lumbar spine are in anatomic alignment. There is preservation of vertebral body heights. There is moderate disc height loss at L4-L5 with mild disc height loss throughout otherwise. There is a hemangioma in the L4 vertebral body and within the L1 vertebral body. There is Modic type II fatty endplate degenerative change at L4-5. There is Modic type I endplate edema at L2-L3. The conus terminates at the superior endplate of the L1 vertebral body level. No epidural or paraspinous fluid collection is appreciated. Simple cysts are noted in the renal cortices requiring no further follow-up. Fatty atrophy is noted in the gluteal musculature. Uncomplicated colonic diverticula are noted. At T12-L1: There is a normal disc, central canal, and neural foramen. At L1-L2: There is a normal disc, central canal, and neural foramen. At L2-L3: There is a broad-based disc bulge with facet hypertrophy. There is mild bilateral neural foraminal narrowing with mild spinal canal narrowing. At L3-L4: There is a broad-based disc bulge with facet hypertrophy. There is moderate narrowing of spinal canal with moderate to severe right and moderate left neural foraminal narrowing with mild mass effect on the exiting right L3 nerve roots. At L4-L5: There is a circumferential disc bulge with facet hypertrophy and endplate osteophyte formation contributing to mild spinal canal narrowing with severe bilateral neural foraminal n arrowing. There is mass effect on the exiting L4 nerve roots bilaterally, left greater than right. At L5-S1: There is a broad-based disc bulge with facet hypertrophy contributing to mild spinal canal narrowing and mild bilateral neural foraminal narrowing. MR/MR lumbar spine wo con IMPRESSION: At L4-L5: There is a circumferential disc bulge with facet hypertrophy and endplate osteophyte formation contributing to mild spinal canal narrowing with severe bilateral neural foraminal narrowing. There is mass effect on the exiting L4 nerve roots bilaterally, left greater than right. At L3-L4: There is a broad-based disc bulge with facet hypertrophy. There is moderate narrowing of spinal canal with moderate to severe right and moderate left neural foraminal narrowing with mild mass effect on the exiting right L3 nerve roots. Impression dictated by: Blake Storey M.D.09/15/2022 4:05 PM Dictation Location: [place] [address] Transcribed By: [facility] 09/15/22 160 Dictated By: Blake Storey II, MD 09/15/22 1555 Signed By: 09/15/22 1605 [facility] CBC AUTO DIFFon 05-28-2022 BASO # 0.1 103/ul Normal 0.0-0.1 [facility] Comment on above: Performed By: #### C BC #### [facility] [address] [place] [address] [address] Lior Buckley Basophils/100 WBC (Bld) 0.6 % Normal 0.2-2.0 [facility] Comment on above: Performed By: #### C BC #### [facility] [address] [place] [address] [address] Lior Buckley EO # 0.2 103/ul Normal 0.0-0.7 [facility] Comment on above: Performed By: #### C BC #### [facility] [address] [place] [address] [address] Lior Buckley Eosinophils/100 WBC (Bld) 2.1 % Normal 0.9-7.0 [facility] [facility] Comment on above: Performed By: #### C BC #### [facility] [address] [place] [address] Dr. Lior Buckley Erythrocyte distribution width (RBC) [Ratio] 15.6 % Critically high 11.0-15.0 [facility] Comment on above: Performed By: #### C BC #### [facility] [address] [place] [address] Dr. Lior Buckley Hematocrit (Bld) [Volume fraction] 42.6 % Normal 42.0-54.0 [facility] Comment on above: Performed By: #### C BC #### [facility] [address] [place] [address] Dr. Lior Buckley Hemoglobin (Bld) [Mass/Vol] 13.5 g/dL Critically low 14.0-18.0 [facility] Comment on above: Performed By: #### C BC #### [facility] [address] [place] [address] Dr. Lior Buckley IG # 0.04 10e3/ul Critically high 0.00-0.03 [facility] Comment on above: Performed By: #### C BC #### [facility] [address] [place] [address] Dr. Lior Buckley IG % 0.5 % Normal 0.0-0.5 [facility] Comment on above: Performed By: #### C BC #### [facility] [address] [place] [address] Dr. Lior Buckley LYMPH # 1.8 103/ul Normal 1.2-3.8 [facility] Comment on above: Performed By: #### C BC #### [facility] [address] [place] [address] Dr. Lior Buckley Lymphocytes/100 WBC (Bld) 21.2 % Normal 20.5-60.0 [facility] Comment on above: Performed By: #### C BC #### [facility] [address] [place] [address] Dr. Lior Buckley MANUAL DIFF REQ NO Normal [facility] Comment on above: Performed By: #### C BC #### [facility] [address] [place] [address] Dr. Lior Buckley MCH (RBC) [Entitic mass] 28.4 pg Normal 25.9-34.0 [facility] Comment on above: Performed By: #### C BC #### [facility] [address] [place] [address] Dr. Lior Buckley MCHC (RBC) [Mass/Vol] 31.7 g/dL Normal 29.9-35.2 [facility] Comment on above: Performed By: #### C BC #### [facility] [address] [place] [address] Dr. Lior Buckley MCV (RBC) [Entitic vol] 89.5 fL Normal 80.0-94.0 [facility] Comment on above: Performed By: #### C BC #### [facility] [address] [place] [address] Dr. Lior Buckley MONO # 0.8 103/ul Normal 0.3-0.8 [facility] Comment on above: Performed By: #### C BC #### [facility] [address] [place] [address] Dr. Lior Buckley Monocytes/100 WBC (Bld) 9.9 % Normal 1.7-12.0 [facility] Comment on above: Performed By: #### C BC #### [facility] [address] [place] [address] Dr. Lior Buckley NEUT # 5.4 103/ul Normal 1.4-6.5 [facility] Comment on above: Performed By: #### C BC #### [facility] [address] [place] [address] Dr. Lior Buckley Neutrophils/100 WBC (Bld) 65.7 % Normal 43.0-75.0 [facility] Comment on above: Performed By: #### C BC #### [facility] [address] [place] [address] Dr. Lior Buckley Platelet mean volume (Bld) [Entitic vol] 10.0 fL Normal 9.5-13.5 [facility] Comment on above: Performed By: #### C BC #### [facility] [address] [address] [address] Lior Buckley PLT 213 103/ul Normal 150-450 [facility] Comment on above: Performed By: #### C BC #### [facility] [address] [address] [address] Lior Bucklye RBC 4.76 106/ul Normal 4.70-6.10 [facility] Comment on above: Performed By: #### C BC #### [facility] [address] [address] [address] Lior Buckley WBC 8.3 103/ul Normal 4.0-11.0 [facility] Comment on above: Performed By: #### C BC #### [facility] [address] [place] [address] Dr. Lior Buckley GLYCOHEMOGLOBIN A1Con 2021 ADA RECOMMENDATION SEE BELOW Normal [facility] Comment on above: Result Comment: ADA RECOMMENDED LIMIT 4.0 - 6.0 ADA THERAPEUTIC TARGET < 7.0 ACTION SUGGESTED > 7.0 Performed By: #### C VDTBH #### [facility] [address] [place] [address] Dr. Lior Buckley Glucose [Mass/Vol] 189 mg/dL Normal [facility] Comment on above: Performed By: #### C VDTBH #### [facility] [address] [place] [address] Dr. Lior Buckley HbA1c (Bld) [Mass fraction] 8.2 % Critically high 4.5-6.2 [facility] Comment on above: Performed By: #### C VDTBH #### [facility] [address] [place] [address] Dr. Lior Buckley LIPID PROFILEon 05-28-2022 CHOL-HDL RATIO NORM SEE BELOW Normal [facility] Comment on above: Result Comment: 3.3 - 4.4 LOW RISK 4.4 - 7.1 AVERAGE RISK 7.1 - 11.0 MODERATE RISK >11.0 HIGH RISK Performed By: #### T SH, LIPID, BMP, LIVER #### [facility] [address] [address] [address] Lior Buckley Cholesterol [Mass/Vol] 178 mg/dL Normal <=200 [facility] Comment on above: Performed By: #### T SH, LIPID, BMP, LIVER #### [facility] [address] [address] [address] Lior Buckley Cholesterol in HDL [Mass/Vol] 36 mg/dL Critically low 40-60 [facility] Comment on above: Performed By: #### T SH, LIPID, BMP, LIVER #### [facility] [address] [address] [address] Lior Buckley Cholesterol in LDL [Mass/Vol] 116.2 mg/dL Normal [facility] Comment on above: Performed By: #### T SH, LIPID, BMP, LIVER #### [facility] [address] [address] [address] Lior Buckley Cholesterol.total/Ch olesterol in HDL [Mass ratio] 4.9 {ratio} Normal [facility] Comment on above: Performed By: #### T SH, LIPID, BMP, LIVER #### [facility] [address] [address] [address] Lior Buckley HDL NORMAL > or = 60 mg/dl - LOW CARDIOVASCULAR RISK <40 mg/dl - HIGH CARDIOVASCULAR RISK Normal [facility] Comment on above: Performed By: #### T SH, LIPID, BMP, LIVER #### [facility] [address] [address] [address] Lior Buckley LDL CALC NORMAL SEE BELOW Normal [facility] Comment on above: Result Comment: <100 mg/dl OPTIMAL 100 - 129 mg/dl NEAR OR ABOVE OPTIMAL 130 - 159 mg/dl BORDERLINE HIGH 160 - 189 mg/dl HIGH >190 mg/dl VERY HIGH Performed By: #### T SH, LIPID, BMP, LIVER #### [facility] [address] [address] [address] Lior Buckley Triglyceride [Mass/Vol] 129 mg/dL Normal <=150 [facility] Comment on above: Performed By: #### T SH, LIPID, BMP, LIVER #### [facility] [address] [address] [address] Lior Buckley VLDL CALC 25.8 mg/dL Normal [facility] Comment on above: Performed By: #### T SH, LIPID, BMP, LIVER #### [facility] [address] [address] [address] Lior Buckley LIVER PROFILEon 05-28-2022 Albumin [Mass/Vol] 4.2 g/dL Normal 3.4-5.0 [facility] Comment on above: Performed By: #### T SH, LIPID, BMP, LIVER #### [facility] [address] [place] [address] Dr. Lior Buckley Albumin/Globulin [Mass ratio] 1.2 {ratio} Normal [facility] Comment on above: Performed By: #### T SH, LIPID, BMP, LIVER #### [facility] [address] [place] [address] Dr. Lior Buckley ALP [Catalytic activity/Vol] 43 U/L Critically low 46-116 [facility] Comment on above: Performed By: #### T SH, LIPID, BMP, LIVER #### [facility] [address] [place] [address] Dr. Lior Buckley ALT [Catalytic activity/Vol] 30 U/L Normal 16-63 [facility] Comment on above: Performed By: #### T SH, LIPID, BMP, LIVER #### [facility] [address] [place] [address] Dr. Lior Buckley AST [Catalytic activity/Vol] 18 U/L Normal 15-37 [facility] Comment on above: Performed By: #### T SH, LIPID, BMP, LIVER #### [facility] [address] [place] [address] Dr. Lior Buckley BILI, CONJUGATED 0.1 mg/dL Normal 0.0-0.2 [facility] Comment on above: Performed By: #### T SH, LIPID, BMP, LIVER #### [facility] [address] [place] [address] Dr. Lior Buckley Bilirubin [Mass/Vol] 0.6 mg/dL Normal 0.2-1.0 [facility] Comment on above: Performed By: #### T SH, LIPID, BMP, LIVER #### [facility] [address] [address] [address] Lior Buckley Globulin (S) [Mass/Vol] 3.4 g/dL Normal [facility] Comment on above: Performed By: #### T SH, LIPID, BMP, LIVER #### [facility] [address] [address] [address] Lior Buckley Protein [Mass/Vol] 7.6 g/dL Normal 6.4-8.2 [facility] Comment on above: Performed By: #### T SH, LIPID, BMP, LIVER #### [facility] [address] [place] [address] Dr. Lior Buckley MICROALBUMIN, RAND URon 07- mALB <1.3 Normal <=30.0 [facility] Comment on above: Performed By: #### C VDTBH #### [facility] [address] [place] [address] Dr. Lior Buckley PROF CHEM 8 (BAS METB)on Anion gap [Moles/Vol] 14.3 mmol/L Normal [facility] Comment on above: Performed By: #### T SH, LIPID, BMP, LIVER #### [facility] [address] [place] [address] Dr. Lior Buckley Calcium [Mass/Vol] 9.5 mg/dL Normal 8.5-10.1 [facility] Comment on above: Performed By: #### T SH, LIPID, BMP, LIVER #### [facility] [address] [place] [address] Dr. Lior Buckley Chloride [Moles/Vol] 103 mmol/L Normal 98-107 [facility] Comment on above: Performed By: #### T SH, LIPID, BMP, LIVER #### [facility] [address] [place] [address] Dr. Lior Buckley CO2 [Moles/Vol] 26.0 mmol/L Normal 21.0-32.0 [facility] Comment on above: Performed By: #### T SH, LIPID, BMP, LIVER #### [facility] [address] [place] [address] Dr. Lior Buckley Creatinine [Mass/Vol] 2.22 mg/dL Critically high 0.70-1.30 [facility] Comment on above: Performed By: #### T SH, LIPID, BMP, LIVER #### [facility] [address] [place] [address] Dr. Lior Buckley EGFR-AF GUATEMALAN 36 mL/min/1.73m2 Critically low >=60 [facility] Comment on above: Performed By: #### T SH, LIPID, BMP, LIVER #### [facility] [address] [place] [address] Dr. Lior Buckley EGFR-NON AF GUATEMALAN 30 mL/min/1.73m2 Critically low >=60 [facility] Comment on above: Performed By: #### T SH, LIPID, BMP, LIVER #### [facility] [address] [place] [address] Dr. Lior Buckley Glucose [Mass/Vol] 142 mg/dL Critically high 74-106 [facility] Comment on above: Performed By: #### T SH, LIPID, BMP, LIVER #### [facility] [address] [place] [address] Dr. Lior Buckley Potassium [Moles/Vol] 4.3 mmol/L Normal 3.5-5.1 [facility] Comment on above: Performed By: #### T SH, LIPID, BMP, LIVER #### [facility] [address] [place] [address] Dr. Lior Buckley Sodium [Moles/Vol] 139 mmol/L Normal 136-145 [facility] Comment on above: Performed By: #### T SH, LIPID, BMP, LIVER #### [facility] [address] [place] [address] Dr. Lior Buckley Urea nitrogen [Mass/Vol] 48.0 mg/dL Critically high 7.0-18.0 [facility] Comment on above: Performed By: #### T SH, LIPID, BMP, LIVER #### [facility] [address] [place] [address] Dr. Lior Buckley Urea nitrogen/Creatinine [Mass ratio] 21.6 mg/mg Normal [facility] Comment on above: Performed By: #### T SH, LIPID, BMP, LIVER #### [facility] [address] [place] [address] Dr. Lior Buckley TSHon 05-28-2022 TSH 1.854 uIU/mL Normal 0.358-3.740 [facility] Comment on above: Performed By: #### T SH, LIPID, BMP, LIVER #### [facility] [address] [place] [address] Dr. Lior Buckley VITAMIN D 25 OHon 05-28-2022 VIT D 25-OH 28.3 ng/mL Normal [facility] Comment on above: Performed By: #### V MARGARITA, PSASC #### [facility] [address] [place] [address] Dr. Lior Buckley VIT D RANGES SEE BELOW Normal [facility] Comment on above: Result Comment: <20 ng/mL Vit D deficient 20 - <30 ng/mL Vit D insufficient 30 - 100 ng/mL Vit D sufficient >100 ng/mL Potential Toxicity Performed By: #### V MARGARITA, PSASC #### [facility] [address] [place] [address] Dr. Lior Buckley TROPONIN, HIGH SENSITIVITYon 05-27-2022 HSTROP 8.8 pg/mL Normal 4.0-76.1 [facility] Comment on above: Result Comment: CUT- OFF POINTS HAVE BEEN ESTABLISHED BASED ON THE FOURTH UNIVERSAL DEFINITIONS OF MYOCARDIAL INFARCTION. THE UPPER REFERENCE LIMIT (URL) OF TROPONIN, DEFINED THE 99TH PERCENTILE OF cTnI DISTRIBUTION IN A REFERENCE POPULATION, HAS BEEN CONFIRMED THE DECISION THRESHOLD FOR [place] DIAGNOSIS. Performed By: #### T SH, LIPID, BMP, LIVER #### [facility] [address] [place] [address] Dr. Lior Buckley CBC AUTO DIFFon 05-26-2022 BASO # 0.0 103/ul Normal 0.0-0.1 [facility] Comment on above: Performed By: #### C VDTBH #### [facility] [address] [place] [address] Dr. Lior Buckley Basophils/100 WBC (Bld) 0.4 % Normal 0.2-2.0 [facility] Comment on above: Performed By: #### C VDTBH #### [facility] [address] [place] [address] Dr. Lior Buckley EO # 0.2 103/ul Normal 0.0-0.7 [facility] Comment on above: Performed By: #### C VDTBH #### [facility] [address] [place] [address] Dr. Lior Buckley Eosinophils/100 WBC (Bld) 2.3 % Normal 0.9-7.0 [facility] Comment on above: Performed By: #### C VDTBH #### [facility] [address] [place] [address] Dr. Lior Buckley Erythrocyte distribution width (RBC) [Ratio] 15.5 % Critically high 11.0-15.0 [facility] Comment on above: Performed By: #### C VDTBH #### [facility] [address] [place] [address] Dr. Lior Buckley Hematocrit (Bld) [Volume fraction] 42.6 % Normal 42.0-54.0 [facility] Comment on above: Performed By: #### C VDTBH #### [facility] [address] [place] [address] Dr. Lior Buckley Hemoglobin (Bld) [Mass/Vol] 13.8 g/dL Critically low 14.0-18.0 [facility] Comment on above: Performed By: #### C VDTBH #### [facility] [address] [place] [address] Dr. Lior Buckley IG # 0.08 10e3/ul Critically high 0.00-0.03 [facility] Comment on above: Performed By: #### C VDTBH #### [facility] [address] [place] [address] Dr. Lior Buckley IG % 0.8 % Critically high 0.0-0.5 [facility] Comment on above: Performed By: #### C VDTBH #### [facility] [address] [place] [address] Dr. Lior Buckley LYMPH # 1.6 103/ul Normal 1.2-3.8 [facility] Comment on above: Performed By: #### C VDTBH #### [facility] [address] [place] [address] Dr. Lior Buckley Lymphocytes/100 WBC (Bld) 15.9 % Critically low 20.5-60.0 [facility] Comment on above: Performed By: #### C VDTBH #### [facility] [address] [place] [address] Dr. Lior Buckley MANUAL DIFF REQ NO Normal [facility] Comment on above: Performed By: #### C VDTBH #### [facility] [address] [place] [address] Dr. Lior Buckley MCH (RBC) [Entitic mass] 28.6 pg Normal 25.9-34.0 [facility] Comment on above: Performed By: #### C VDTBH #### [facility] [address] [place] [address] Dr. Lior Buckley MCHC (RBC) [Mass/Vol] 32.4 g/dL Normal 29.9-35.2 [facility] Comment on above: Performed By: #### C VDTBH #### [facility] [address] [place] [address] Dr. Lior Buckley MCV (RBC) [Entitic vol] 88.4 fL Normal 80.0-94.0 [facility] Comment on above: Performed By: #### C VDTBH #### [facility] [address] [place] [address] Dr. Lior Buckley MONO # 0.8 103/ul Normal 0.3-0.8 [facility] Comment on above: Performed By: #### C VDTBH #### [facility] [address] [place] [address] Dr. Lior Buckley Monocytes/100 WBC (Bld) 8.1 % Normal 1.7-12.0 [facility] Comment on above: Performed By: #### C VDTBH #### [facility] [address] [address] [address] Lior Buckley NEUT # 7.5 103/ul Critically high 1.4-6.5 [facility] Comment on above: Performed By: #### C VDTBH #### [facility] [address] [address] [address] Lior Buckley Neutrophils/100 WBC (Bld) 72.5 % Normal 43.0-75.0 [facility] Comment on above: Performed By: #### C VDTBH #### [facility] [address] [address] [address] Lior Buckley Platelet mean volume (Bld) [Entitic vol] 9.9 fL Normal 9.5-13.5 [facility] Comment on above: Performed By: #### C VDTBH #### [facility] [address] [place] [address] Dr. Lior Buckley PLT 210 103/ul Normal 150-450 [facility] Comment on above: Performed By: #### C VDTBH #### [facility] [address] [place] [address] Dr. Lior Buckley RBC 4.82 106/ul Normal 4.70-6.10 [facility] Comment on above: Performed By: #### C VDTBH #### [facility] [address] [place] [address] Dr. Lior Buckley WBC 10.3 103/ul Normal 4.0-11.0 [facility] Comment on above: Performed By: #### C VDTBH #### [facility] [address] [place] [address] CSPINE WO CONon 2 CT CSPINE WO CON EXAMINATION: CT CSPINE WO CON HISTORY: Syncope with injury to the back of head. TECHNIQUE: Axial CT scans through the cervical spine were obtained without contrast administration. Sagittal and coronal reconstruction images were obtained. A trauma Dose reduction techniques were achieved by using: automated exposure control and/or adjustment of mA and /or kV according to patient size and/or use of iterative reconstruction technique. COMPARISON: 12/23/2021. FINDINGS: No fracture or dislocation is shown. At C3-C4, posterior discovertebral complex results in mild central spinal stenosis without interval change. Moderate left and moderate-severe right neural foraminal stenosis secondary to decreased disc height and uncovertebral hypertrophy is unchanged. Mild to moderate stenosis of the left C5-C6 and C6-C7 neural foramina secondary to decreased disc height and uncovertebral hypertrophy is unchanged. The prevertebral soft tissue space appears normal. Visualized intracranial contents appear normal. Visualized neck shows no adenopathy. Visualized lung apices are clear. IMPRESSION: No fracture or dislocation. At C3-C4, mild central spinal stenosis, moderate left and moderate-severe right neural foraminal stenosis, unchanged. Electronically authenticated by: GEOFFREY CELAYA Date: 2022-05-26 20:14 Normal [facility] CT HEAD WO CONon 05-26-2022 CT HEAD WO CON EXAMINATION: CT HEAD WO CON HISTORY: UNSPECIFIED INJURY OF HEAD, INITIAL ENCOUNTER . This is a 66-year-old who hit the posterior aspect of the head with loss of consciousness. COMPARISON: 12/23/2021 TECHNIQUE: CT examination of the head without IV contrast. Sagittal and coronal reconstructions were obtained. Dose reduction techniques were achieved by using automated exposure control and/or adjustment of mA and/or kV according to patient size and/or use of iterative reconstruction technique. FINDINGS: The ventricles are not enlarged, the lateral ventricles are symmetric and the third ventricles in the midline. The sylvian fissures and cortical sulci are unremarkable. There is no evidence of an intracranial hemorrhage, mass lesion or apparent acute infarct. There is slightly diminished attenuation in the periventricular deep white matter. Benign calcifications are seen in the pineal complex. The cerebellum and visualized brainstem are intact. The paranasal sinuses are clear. There is no apparent skull fracture. IMPRESSION: There is no evidence of an intracranial hemorrhage, mass lesion or apparent acute infarct. Slight diminished attenuation in the deep white matter indicates very early small vessel ischemic change. The paranasal sinuses are clear. The overall appearance has not changed significantly since 12/23/2021. Electronically authenticated by: MINOO AGUILA Date: 2022-05-26 19:36 Normal [facility]19 PCR [facility]on 05-16 SARS-CoV-2 (COVID-19) RNA GAMAL+probe Ql (Unsp spec) Not detected Normal NOT DETECTED [facility] Comment on above: Result Comment: When diagnostic testing is negative, the possibility of a false negative should be considered in the context of a patient's recent exposures and the presence of clinical signs and symptoms consistent with SARS-CoV-2. This test is not yet approved or cleared by the [place] FDA. When there are no FDA-approved or cleared tests available, and other criteria are met, FDA can make tests available under an emergency access mechanism called an Emergency Use Authorization (EUA). The EUA for this test is supported by the [employer] of Health and Human Service's declaration that circumstances exist to justify the emergency use of in vitro diagnostics for the detection and/or diagnosis of the virus that causes COVID-19. This EUA will remain in effect for the duration of the COVID-19 declaration justifying emergency of IVDs, unless it is terminated or revoked by the FDA (after which the test may no longer be used). Performed By: #### C VDTBH #### [facility] [address] [place] [address] Dr. Lior Buckley D-DIMERon 05-26-2022 D-DIMER 1.27 mg/L FEU Critically high <=0.59 [facility] Comment on above: Performed By: #### D DIM #### [facility] [address] [place] [address] Dr. Lior Buckley D-DIMER COMMENTS SEE BELOW Normal [facility] Comment on above: Result Comment: Incr eases in D-Dimer concentration observed with thromboembolic events can be variable due to localization, size, and age of the thrombus. Therefore, a thromboembolic event cannot be diagnosed with certainty on the basis of the reference range. D-Dimers may also be elevated for a variety of disorders including: advanced age, , coronary disease, cancer, liver disease, infection, inflammation, hematoma, DIC, trauma, post-surgery, diabetes, thrombolytic or anticoagulant therapy, stress, and generalized hospitalization. Performed By: #### D DIM #### [facility] [address] [place] [address] Dr. Lior Buckley FREE T4on 05-26-2022 Free T4 [Mass/Vol] 1.09 ng/dL Normal 0.76-1.46 [facility] Comment on above: Performed By: #### F T4 #### [facility] [address] [place] [address] Dr. Lior Buckley POINT OF CARE GLUCOSEon 05-16 Glucose [Mass/Vol] 109 mg/dL Critically high 74-[address] [facility] Comment on above: Performed By: #### C VDTBH #### [facility] [address] [place] [address] Dr. Lior Buckley PROF 14(COMP METB)on 022 Albumin [Mass/Vol] 4.1 g/dL Normal 3.4-5.0 [facility] Comment on above: Performed By: #### C VDTBH #### [facility] [address] [place] [address] Dr. Lior Buckley Albumin/Globulin [Mass ratio] 1.2 {ratio} Normal [facility] Comment on above: Performed By: #### C VDTBH #### [facility] [address] [place] [address] Dr. Lior Buckley ALP [Catalytic activity/Vol] 45 U/L Critically low 46-116 [facility] Comment on above: Performed By: #### C VDTBH #### [facility] [address] [place] [address] Dr. Lior Buckley ALT [Catalytic activity/Vol] 30 U/L Normal 16-63 [facility] Comment on above: Performed By: #### C VDTBH #### [facility] [address] [place] [address] Dr. Lior Buckley Anion gap [Moles/Vol] 11.5 mmol/L Normal [facility] Comment on above: Performed By: #### C VDTBH #### [facility] [address] [place] [address] Dr. Lior Buckley AST [Catalytic activity/Vol] 20 U/L Normal 15-37 [facility] Comment on above: Performed By: #### C VDTBH #### [facility] [address] [place] [address] Dr. Lior Buckley Bilirubin [Mass/Vol] 0.6 mg/dL Normal 0.2-1.0 [facility] Comment on above: Performed By: #### C VDTBH #### [facility] [address] [address] [address] Lior Buckley Calcium [Mass/Vol] 9.5 mg/dL Normal 8.5-10.1 [facility] Comment on above: Performed By: #### C VDTBH #### [facility] [address] [address] [address] Lior Buckley Chloride [Moles/Vol] 104 mmol/L Normal 98-107 [facility] Comment on above: Performed By: #### C VDTBH #### [facility] [address] [place] [address] Dr. Lior Buckley CO2 [Moles/Vol] 25.9 mmol/L Normal 21.0-32.0 [facility] Comment on above: Performed By: #### C VDTBH #### [facility] [address] [place] [address] Dr. Lior Buckley Creatinine [Mass/Vol] 2.21 mg/dL Critically high 0.70-1.30 [facility] Comment on above: Performed By: #### C VDTBH #### [facility] [address] [place] [address] Dr. Lior Buckley EGFR-AF GUATEMALAN 36 mL/min/1.73m2 Critically low >=60 [facility] Comment on above: Performed By: #### C VDTBH #### [facility] [address] [place] [address] Dr. Lior Buckley EGFR-NON AF GUATEMALAN 30 mL/min/1.73m2 Critically low >=60 [facility] Comment on above: Performed By: #### C VDTBH #### [facility] [address] [place] [address] Dr. Lior Buckley Globulin (S) [Mass/Vol] 3.3 g/dL Normal [facility] Comment on above: Performed By: #### C VDTBH #### [facility] [address] [address] [address] Lior Buckley Glucose [Mass/Vol] 115 mg/dL Critically high 74-106 [facility] Comment on above: Performed By: #### C VDTBH #### [facility] [address] [place] [address] Dr. Lior Buckley Potassium [Moles/Vol] 4.4 mmol/L Normal 3.5-5.1 [facility] Comment on above: Performed By: #### C VDTBH #### [facility] [address] [place] [address] Dr. Lior Buckley Protein [Mass/Vol] 7.4 g/dL Normal 6.4-8.2 [facility] Comment on above: Performed By: #### C VDTBH #### [facility] [address] [place] [address] Dr. Lior Buckley Sodium [Moles/Vol] 137 mmol/L Normal 136-145 [facility] Comment on above: Performed By: #### C VDTBH #### [facility] [address] [place] [address] Dr. Lior Buckley Urea nitrogen [Mass/Vol] 57.0 mg/dL Critically high 7.0-18.0 [facility] Comment on above: Performed By: #### C VDTBH #### [facility] [address] [place] [address] Dr. Lior Buckley Urea nitrogen/Creatinine [Mass ratio] 25.8 mg/mg Normal [facility] Comment on above: Performed By: #### C VDTBH #### [facility] [address] [place] [address] Dr. Lior Buckley TROPONIN, HIGH SENSITIVITYon 05-26-2022 HSTROP 8.4 pg/mL Normal 4.0-76.1 [facility] Comment on above: Result Comment: CUT- OFF POINTS HAVE BEEN ESTABLISHED BASED ON THE FOURTH UNIVERSAL DEFINITIONS OF MYOCARDIAL INFARCTION. THE UPPER REFERENCE LIMIT (URL) OF TROPONIN, DEFINED THE 99TH PERCENTILE OF cTnI DISTRIBUTION IN A REFERENCE POPULATION, HAS BEEN CONFIRMED THE DECISION THRESHOLD FOR [place] DIAGNOSIS. Performed By: #### C VDTBH #### [facility] [address] [place], [place] [address] Dr. Lior Buckley TSHon 05-26-2022 TSH 1.911 uIU/mL Normal 0.358-3.740 [facility] Comment on above: Performed By: #### C VDTB #### [facility] [id number] Lior Buckley XR CHEST 1 Von 05-26-2022 XR CHEST 1 V CXR HISTORY: Shortness of breath COMPARISON: None. TECHNIQUE: 1 view chest submitted for review. FINDINGS: The lungs are adequately expanded without evidence of acute infiltrate or effusion. The cardiac silhouette measures within normal. Pulmonary vascularity is unremarkable. Osseous structures are within normal limits for age. IMPRESSION: No plain film evidence for acute cardiopulmonary disease. Electronically authenticated by: RADHA MERINO Date: 2022-05-26 20:19 Normal [facility] Tobacco Screening.on 022 Adult depression screening assessment No [facility] DO Work Phone: Fall risk assessment b) One or more fall s in the last year [facility] DO Work Phone: Tobacco use status [facility] b) No [facility] DO Work Phone: Vital Signs Date Time Vital Sign Value Performing Clinician Wayloni nina 04-07-2024 17:51-0400 Body height 182.88 cm [facility] 04-07-2024 17:51-0400 Body mass index (BMI) [Ratio] 32.7 kg/m2 [facility] 04-07-2024 17:51-0400 Body temperature 99.5 [degF] [facility] 04-07-2024 17:51-0400 Body weight 109.48 kg [facility] 04-07-2024 17:51-0400 Diastolic blood pressure 65 mm[Hg] [facility] 04-07-2024 17:51-0400 Heart rate 69 /min [facility] 04-07-2024 17:51-0400 Respiratory rate 18 /min [facility] 04-07-2024 17:51-0400 SaO2% (BldA) [Mass fraction] 97 % [facility] 04-07-2024 17:51-0400 Systolic blood pressure 104 mm[Hg] [facility] 07-29-2023 11:20-0400 Body height 180.34 cm Dusty A Naderer Work Phone: [facility] DO Work Phone: 07-29-2023 11:20-0400 Body mass index (BMI) [Ratio] 32.92 kg/m2 Dusty A Naderer Work Phone: [facility] DO Work Phone: 07-29-2023 11:20-0400 Body surface area Derived from formula 2.26 m2 Dusty A Naderer Work Phone: [facility] DO Work Phone: 07-29-2023 11:20-0400 Body weight 107.05 kg Dutsy A Naderer Work Phone: [facility] DO Work Phone: 07-29-2023 11:20-0400 Diastolic blood pressure 62 mm[Hg] Dusty A Naderer Work Phone: [facility] DO Work Phone: 07-29-2023 11:20-0400 Heart rate 66 /min Dusty A Naderer Work Phone: [facility] DO Work Phone: 07-29-2023 11:20-0400 Systolic blood pressure 118 mm[Hg] Dusty A Naderer Work Phone: [facility] DO Work Phone: 04-17-2022 10:22-0400 Body height 181.61 cm Dusty A Naderer Work Phone: [facility] DO Work Phone: 04-17-2022 10:22-0400 Body mass index (BMI) [Ratio] 32.46 kg/m2 Dusty Alonso Refugioerer Work Phone: [facility] DO Work Phone: 04-17-2022 10:22-0400 Body surface area Derived from formula 2.27 m2 Dusty Alonso Naderer Work Phone: [facility] DO Work Phone: 04-17-2022 10:22-0400 Body weight 107.05 kg Dusty Alonso Refugioerer Work Phone: [facility] DO Work Phone: 04-17-2022 10:22-0400 Diastolic blood pressure 76 mm[Hg] Dusty Alonso Refugioerer Work Phone: [facility] DO Work Phone: 04-17-2022 10:22-0400 Heart rate 78 /min Dusty Celeste Hufferer Work Phone: [facility] DO Work Phone: 04-17-2022 10:22-0400 Systolic blood pressure 120 mm[Hg] Dusty Alonso Refugioerer Work Phone: [facility] DO Work Phone: Encounters Encounter Date Encounter Type Care Provider Facility Start: 07-27-2024 End: 07-27-2024 ambulatory DUSTY RUSH Not Available Start: 07-01-2024 End: 07-01-2024 [facility] Start: 05-05-2024 End: 05-05-2024 amb[facility] Start: 04-07-2024 End: 05-23-2024 ambulatory [facility] Work Phone: Start: 04-07-2024 End: 04-07-2024 Patient encounter procedure [facility] [place] Work Phone: Start: 07-29-2023 Office outpatient vi sit 25 minutes Dusty Rush Work Phone: [facility] DO Work Phone: Start: 07-29-[address] Kris Harris Facility: Start: 01-26-2023 Office outpatient ne w 45 minutes Linden Garnica [facility] Start: 01-26-2023 End: 01-26-2023 ambulatory Lidnen Garnica Facility:[facility] Start: 01-26-2023 End: 01-26-2023 ambulatory NON STAFF [facility] Work Phone: Start: 01-26-2023 End: 01-26-2023 Patient encounter procedure [facility] Start: 01-13-2023 Rx Renewal Dusty Rush Work Phone: [facility] DO Work Phone: Start: 12-10-2022 End: 12-10-[address] DUSTY RUSH Facility:[facility] Start: 12-08-2022 End: 12-09-[address] DUSTY RUSH Facility:[facility] Start: 09-15-2022 End: 09-15-2022 ambulatory Osvaldo Almonte Facility:[facility] Start: 09-15-2022 End: 09-15-2022 ambulatory NON STAFF [facility] Work Phone: Start: 09-15-2022 End: 09-15-2022 Patient encounter procedure MD Osvaldo Almonte Work Phone: [facility] [address] Start: 08-05-2022 Rx Renewal Dusty Rush Work Phone: [facility] DO Work Phone: Start: 05-28-2022 End: 05-29-[address] DUSTY RUSH Facility:[facility] Start: 05-26-2022 End: 05-27-[address] DUSTY RUSH Facility:[facility] Start: 04-17-2022 Office outpatient vi sit 15 minutes Dusty Rush Work Phone: [facility] DO Work Phone: Start: 03-04-2022 Rx Renewal Kris Lopezdo george DO Work Phone: [facility] DO Work Phone: Start: 12-30-2021 Rx Renewal Kris Lopezdo george DO Work Phone: [facility] DO Work Phone: Start: 12-13-2021 Rx Renewal Kris Lopezdo george DO Work Phone: [facility] DO Work Phone: Start: 08-21-2021 Rx Renewal Kris Peña doris DO Work Phone: [facility] DO Work Phone: Start: 01-06-2019 Patient encounter procedure PROVIDER UNKNOWN Facility:[id number] Procedures Date Procedure Procedure Detail Performing Clinician Start: 01-26-2023 Plain X-ray of left elbow Start: 09-15-2022 MR lumbar spine wo con MD Osvaldo Almonte Work Phone: Start: 09-15-2022 XR pre/post mri xray MD Osvaldo Almonte Work Phone: Start: 05-28-[address] DUSTY PALMA Comment on above: Performed By: #### V ITAD, PSASC #### [facility] [address] [place] [address] Dr. Loir Buckley Appendectomy Kris Harris DO Work Phone: Cardiac catheterization Will martinawilla Harris DO Work Phone: Hernia repair Kris Lopezdo george DO Work Phone: Tonsillectomy Kris Casey george DO Work Phone: Total colonoscopy Kris Pelaez omar DO Work Phone: Vasectomy Kris Lopezdon DO Work Phone: Comment on above: History of Surgery V as Deferens Vasectomy; Plan of Treatment Date Care Activity Detail Author Start: 07-28-2024 FUV, Provider: Kris Harris, Status: Pen, Time: 10:50 AM FUV, Provider: Kris Harris, Status: Pen, Time: 10:50 AM [facility] DO Work Phone: Start: 04-23-2023 FUV, Provider: Kris Harris, Status: Pen, Time: 9:00 AM FUV, Provider: Kris Harris, Status: Pen, Time: 9:00 AM [facility] DO Work Phone: Start: 04-17-2022 FUV, Provider: Kris Harris, Status: Pen, Time: 10:20 AM FUV, Provider: Kris Harris, Status: Pen, Time: 10:20 AM [facility] DO Work Phone: Start: 02-12-2022 FUV, Provider: Kris Harris, Status: Pen, Time: 9:20 AM FUV, Provider: Kris Harris, Status: Pen, Time: 9:20 AM [facility] DO Work Phone: Immunizations Immunization Date Immunization Notes Care Provider Derek cerna 09-09-2022 Fluad Quadrivalent 0 .5 ML Intramuscular Prefilled Syringe Dusty [facility]exusr [facility] Work Phone: 12-13-2021 Moderna COVID-19 Vac cine 100 MCG/0.5ML Intramuscular Suspension Dusty Alonso Naderer Work Phone: [facility] 250 DO Work Phone: 08-29-2021 influenza, injectabl e, quadrivalent, preservative free Dusty A Naderer Work Phone: [facility] 250 DO Work Phone: 02-08-2021 Moderna COVID-19 Vac cine 100 MCG/0.5ML Intramuscular Suspension Dusty A Naderer Work Phone: [facility] 250 DO Work Phone: 01-09-2021 Moderna COVID-19 Vac cine 100 MCG/0.5ML Intramuscular Suspension Dusty A Naderer Work Phone: [place] [address] DO Work Phone: 07-28-2020 influenza, injectabl e, quadrivalent, preservative free Dusty A Naderer Work Phone: [place] [address] DO Work Phone: 07-17-2020 influenza virus vacc ine, unspecified formulation Kris Harris DO Work Phone: [place] [address] DO Work Phone: 07-17-2020 zoster vaccine, live Kris Harris DO Work Phone: [place] [address] DO Work Phone: 10-16-2019 zoster vaccine recombinant Kris Harris DO Work Phone: [place] [address] DO Work Phone: 08-16-2019 influenza virus vacc ine, unspecified formulation Kris Harris DO Work Phone: [place] [address] DO Work Phone: 07-17-2019 zoster vaccine recombinant Kris Harris DO Work Phone: [place] [address] DO Work Phone: 07-08-2019 influenza, injectabl e, quadrivalent, preservative free Dusty A Naderer Work Phone: [place] [address] DO Work Phone: 07-08-2019 zoster vaccine recombinant Dusty Alonso Naderer Work Phone: [place] [address] DO Work Phone: 05-11-2019 tetanus toxoid, redu efren diphtheria toxoid, and acellular pertussis vaccine, adsorbed Dusty Alonso Naderer Work Phone: [place] [address] DO Work Phone: 05-11-2019 zoster vaccine recombinant Dusty Alonso Nadindiar Work Phone: [place] [address] DO Work Phone: 07-17-2018 influenza virus vacc ine, unspecified formulation Kris Harris DO Work Phone: [place] [address] DO Work Phone: 07-09-2018 influenza, injectabl e, quadrivalent, preservative free Dusty Alonso Nadindiar Work Phone: [place] [address] DO Work Phone: 07-01-2018 pneumococcal polysaccharide vaccine, 23 valent Dusty Alonso Nadindiar Work Phone: [place] [address] DO Work Phone: 03-14-2018 tetanus toxoid, redu efren diphtheria toxoid, and acellular pertussis vaccine, adsorbed Dusty Alonso Nadindiar Work Phone: [place] [address] DO Work Phone: 07-09-2017 influenza, injectabl e, quadrivalent, preservative free Dusty Alonso Naderer Work Phone: [place] [address] DO Work Phone: 06-19-2017 influenza virus vacc ine, unspecified formulation Kris Harris DO Work Phone: [facility] 250 DO Work Phone: 09-14-2016 zoster vaccine, live Dusty Alonso Nadnoel Work Phone: [facility] 250 DO Work Phone: 08-20-2016 pneumococcal conjuga te vaccine, 13 valent Dusty Alonso Nadindiar Work Phone: [facility] 250 DO Work Phone: 08-12-2016 influenza, seasonal, injectable, preservative free Dusty Alonso Nadnoel Work Phone: [facility] [place] DO Work Phone: 11-16-2015 pneumococcal polysaccharide vaccine, 23 valent Kris Harris DO Work Phone: [place] [address] DO Work Phone: 11-16-2015 zoster vaccine, live Kris Lopezdon DO Work Phone: [place] [address] DO Work Phone: 08-30-2015 influenza virus vacc ine, unspecified formulation Kris Harris DO Work Phone: [facility] 250 DO Work Phone: 08-16-2015 influenza virus vacc ine, unspecified formulation Kris Harris DO Work Phone: [facility] 250 DO Work Phone: 07-17-2014 influenza virus vacc ine, unspecified formulation Kris Harris DO Work Phone: [facility] 250 DO Work Phone: 07-29-2013 influenza virus vacc ine, unspecified formulation Kris Harris DO Work Phone: [facility] 250 DO Work Phone: 07-27-2013 influenza virus vacc ine, unspecified formulation Kris Harris DO Work Phone: [facility] 250 DO Work Phone: 01-04-2010 novel influenza-H1N1 -09, preservative-free, injectable Dusty Rush Work Phone: [facility] 250 DO Work Phone: Payers Date Payer Category Payer Self-pay 1959 Private Health Insurance [facility] [place] [id number] 1956 Unknown [id number] 2.16.8 [id number] 1956 Unknown [id number] 2.16.84 [id number] 1956 Unknown [id number] 2.16.84 [id number] 1956 Unknown [id number] 2.16.84 [id number] 1956 Unknown [id number] 2.16.84 [id number] 1956 Unknown [id number] 2.16. [id number] 1956 Unknown [id number] 2.16.8 [id number] 1956 Unknown [id number] 2.16.8 [id number] 1956 Unknown [id number] 2.16.84 [id number] [id number] [facility] [id number] Unknown [id number] 2.16.8 [id number] Unknown [id number] 2.16.8 [id number] Social History Date Type Detail Facility Occasional alcohol use Occasional alcohol use -[facility] DO Work Phone: Comment on above: 2 cups coffee daily; Quit around the year , 1994; Start: 1955 Sex Assigned At Male F [facility] Sex Assigned At Sex Assigned At Bir th [facility] [email or web address] Other Evaluation note 01-26-2023 Note Date & Type Note Facility 01-26-2023 Evaluation note Encounter Date Diagnosis Assessment Notes Jan, Left elbow pain (ICD-10 - M25.522) Jan, Olecranon bursitis of left elbow (ICD-10 - M70.22) Amos presents with left olecranon bursitis. At this juncture we have discussed the findings and diagnosis as well as personally reviewed appropriate imaging and performed interpretation of related testing and examination with the patient in office today. Prior medical notes and history have been reviewed. We discussed diagnosis as well as treatment options. Conservatively with rest, anti-inflammatori es, icing and compression was discussed. He opts for aspiration of this. Today under sterile technique the patient's electrogram bursa was aspirated revealing approximately 20 cc of blood-tinged bursal fluid and then injected with a 1 and 1 mixture of Marcaine and Kenalog. He tolerated this well. Compressive wrap was applied. Recommended compression over the next 48-72 hours with plenty of ice. He can can continue compressive wrap if there is further swelling. He can follow-up as needed The patient has been involved in our cooperative treatment plan and agrees to move forward with treatment at this time. Patient was prepped and elbow was aspirated of approximately 20 mls of bloody appearing fluid under sterile conditions. We then performed a kenalog cortisone injection into the elbow under sterile technique. Patient tolerated the injection well without adverse reaction. Compression dressing applied to elbow. Jan, Other See orders for this visit as documented in the electronic medical record. [facility] [email or web address] Other Evaluation note Note Date & Type Note Facility Evaluation note No assessment information availa [facility] Work Phone: Evaluation note Note Date & Type Note Facility Evaluation note Diagnosis Onset Date Sinusitis, acute, maxillary acute [facility] Work Phone: History general Narrative - Reported Note Date & Type Note Facility History general Narrative - Reported Type Medical History hypertension Medical History hyperlipidemia Medical History Diabetes type 2 Surgical History hear stents x2 [employer] Other Summary Purpose Family History No Family History Records FoundUnknown Family Member Name Dates Details Family history of ASCVD: Mot her, Brother(V17.49, Z82.49) Status:Active Unknown Family Member Name Dates Details Family history of ASCVD: Mot her, Brother(V17.49, Z82.49) Status:Active Unknown Family Member Name Dates Details Family history of ASCVD: Mot her, Brother(V17.49, Z82.49) Status:Active Unknown Family Member Name Dates Details Family history of ASCVD: Kusum her, Brother(V17.49, Z82.49) Status:Active Unknown Family Member Name Dates Details Family history of ASCVD: Mot her, Brother(V17.49, Z82.49) Status:Active Unknown Family Member Name Dates Details Family history of ASCVD: Mot her, Brother(V17.49, Z82.49) Status:Active Unknown Family Member Name Dates Details Family history of ASCVD: Mot her, Brother(V17.49, Z82.49) Status:Active Unknown Family Member Name Dates Details Family history of ASCVD: Mot her, Brother(V17.49, Z82.49) Status:Active Relationship Condition Age at Onset Recorded Date/T cherry father Unknown Not Specified Unknown Advance Directives No Advanced Directives Records Found Advance Directive Response Recorded Date/ Time Advance Directives No September 12, 2022 11:06am Chief Complaint * AMOS CASTAÑEDA is being seen for an annual follow-up of carotid stenosis, dyslipidemia and hypertension. * 66-year-old gentleman who returns for annual follow-up he is doing well he has no cardiovascular complaints. He has history of ASHD with previous PCI's of the obtuse marginal branch and diagonal in 2014. He had a normal stress test in 2019. * Underlying comorbidities continue to include diabetes mellitus, hyperlipidemia and mild obesity. Heis hemodynamically stable and remains on appropriate guideline directed medical therapies as noted with no heart failure, angina or recurrent events * Recommendations, obtain appropriate laboratories and follow-up in 1 year * AMOS CASTAÑEDA is being seen for an annual follow-up of carotid stenosis, dyslipidemia and hypertension. * 66-year-old gentleman who returns for annual follow-up he is doing well he has no cardiovascular complaints. He has history of ASHD with previous PCI's of the obtuse marginal branch and diagonal in 2014. He had a normal stress test in 2019. * Underlying comorbidities continue to include diabetes mellitus, hyperlipidemia and mild obesity. Heis hemodynamically stable and remains on appropriate guideline directed medical therapies as noted with no heart failure, angina or recurrent events * Recommendations, obtain appropriate laboratories and follow-up in 1 year * AMOS CASTAÑEDA is being seen for an annual follow-up of. * 67-year-old gentleman returns for follow-up and doing very well. He has no cardiovascular complaints, events or nitrate usage or recurrent hospitalizations. He said remote PCI's of the circumflex anddiagonal branch with follow-up stress testing last year that was normal in 2021. PCI's date back [id number]. * He has underlying diabetes, chronic kidney disease, hyperlipidemia, and more recently development of neuropathy from his diabetes with associated falls this past year. * We have counseled him on safety and fall prevention * His most recent LDL is 118 and serum creatinine 2.0 * Recommendations, continue current therapies, increase rosuvastatin to 20 mg daily with follow-up lipid panel, will follow-up in 1 year * AMOS CASTAÑEDA is being seen for an annual follow-up of. * 67-year-old gentleman returns for follow-up and doing very well. He has no cardiovascular complaints, events or nitrate usage or recurrent hospitalizations. He said remote PCI's of the circumflex anddiagonal branch with follow-up stress testing last year that was normal in 2021. PCI's date back [id number]. * He has underlying diabetes, chronic kidney disease, hyperlipidemia, and more recently development of neuropathy from his diabetes with associated falls this past year. * We have counseled him on safety and fall prevention * His most recent LDL is 118 and serum creatinine 2.0 * Recommendations, continue current therapies, increase rosuvastatin to 20 mg daily with follow-up lipid panel, will follow-up in 1 year Chief Complaint and Reason for Visit Chief Complaint M48.061 M54.9 R20.2 R26.89 Chief Complaint cough,congestion Reason for Visit Sinusitis, acute, ma xillary Additional Source Comments (unrecognized sect ion and content) No Status Records FoundNo Status Records FoundNo Status Records FoundNo Status Records FoundNo Status Records FoundNo Status Records FoundNo Status Records Found INFORMATION SOURCE (unrecogn ized section and content) DATE CREATED AUTHOR 01/28/2019 [facility] DATE CREATED AUTHOR AUTHOR'S ORGANIZ ATION 12/25/2022 [facility] DATE CREATED AUTHOR AUTHOR'S ORGANIZ ATION 01/31/2023 [facility] DATE CREATED AUTHOR AUTHOR'S ORGANIZ ATION 07/30/2023 [facility] DATE CREATED AUTHOR AUTHOR'S ORGANIZ ATION 07/31/2023 [employer] DATE CREATED AUTHOR AUTHOR'S ORGANIZ ATION 07/03/2024 [facility] DATE CREATED AUTHOR AUTHOR'S ORGANIZ ATION 07/28/2024 [facility] [employer] Care Teams (unrecognized sec tion and content) Team Status: Inactive Member Role Status Dates Osvaldo Almonte MD Attending Provider Active NON STAFF Primary Care Provider Active Team Status: Active Member Role Status Dates NON STAFF Primary Care Provider Active Team Status: Inactive Member Role Status Dates NON STAFF Primary Care Provider Active Linden Garnica DO Attending Provider Active Team Status: Inactive Member Role Status Dates NON STAFF Primary Care Provider Active Start: April 07, 2024 End: April 07, 2024 Adali Staples APRN Attending Provider Active Start: April 07, 2024 End: April 07, 2024 Goals (unrecognized section and content) Goals may be documented in a n alternate sectionGoals may be documented in an alternate sectionNo InformationGoals may be documented in an alternate section REASON FOR VISIT (unrecogniz ed section and content) Left Elbow Pain FOR RECORDS PERTAINING TO PATIENTS WHO ARE OR HAVE BEEN ENROLLED IN A CHEMICAL DEPENDENCY/SUBSTANCEABUSE PROGRAM, SOME INFORMATION MAY BE OMITTED. This clinical summary was aggregated from multiple sources. Caution should be exercised in using it in the provision of clinical care. This summary normalizes information from multiple sources, and as a consequence, information in this document may materially change the coding, format and clinical context of patient data. In addition, data may be omitted in some cases. CLINICAL DECISIONS SHOULD BE BASED ON THE PRIMARY CLINICAL RECORDS. [facility] [employer] [facility]. provides no warranty or guarantee of the accuracy or completeness of information in this document.
== END 2024-08-01 07:02 | disposition home or self-care (01) ==
LOC: US 07:02
PROVIDERS: PCP Family Medicine; Visit Provider Family Medicine
DX: R10.84 Generalized abdominal pain (principal)
CPT/HCPCS: 76705

== ENCOUNTER 2024-08-02 14:04 | Outpatient (REF) | payer MEDICARE, SELFPAY ==
--- OUTSIDE RECORDS SUMMARY | 2024-08-02 14:20 | XMS_ITS | CCD ---
Author Organization [facility] Care Team Providers Care Office Sweeper Name Role Phone UNKNOWN, PROVIDER Attending Unavailable ADRI, UDSTY REVELES Primary Care Unavailabl e Unavailable Unavailable [...] Provider Unavailabl DO Linden Roger Attending Provider Osvaldo Almonte Admitting Unavailable Osvaldo Almonte Attending Unavailable NON STAFF Primary Care Unavailable Linden Garnica Admitting Unavailable Linden Garnica Attending Unavailable NON STAFF Primary Care Unavailable Linden Garnica Unavailable Steven, Dr. Kris Stout Attending Unava jayde Harris, Dr. Kris Stout Referring Meghava jayde Rush, Dr. Dusty Reveles Primary Care Unavai DUSTY Carlos Referring Unavailabl e NADERER, DUSTY REVELES Primary Care Unavailabl e NADDUSTY DIETZ Referring Unavailabl e NADERER, DUSTY REVELES Primary Care Unavailabl e NADNOEL, DUSTY Attending Unavailable Allergies Allergy Classification Reported Allergen(s) Allergy Type Date of Onset Reaction(s) Facility (13 sources) moxifloxacin; Translations: [Avelox TABS] Drug Allergy Swelling -[facility]-Dashawn 250 DO Work Phone: (1 source) moxifloxacin Drug Allergy 06-05-2013 [facility] Repository Medications Current Medications Medication Drug Class(es) [...] 12:00am Start: 05-29-2021 take 1 tablet by ibrd th once daily at mealtime metFORMIN HCl [...] disease (12 sources) Atherosclerotic heart disease of [place] coronary artery without angina pectoris; Translations: [Double [...] 05-29-2022 Chronic Other aftercare (3 sources) 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; Translations: [OTH [facility] CURRENT DRUG THERAPY] Onset: 05-29-2022 Episodic Other [...] Onset: 05-28-2022 Episodic Other aftercare (1 source) 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; Translations: [LAND TITLE EXAMINER CURRENT USE OF ASPIRIN] Onset: 05-28-2022 Episodic Other aftercare (1 source) custodial (current) use of oral hypoglycemic drugs; Translations: [LAND TITLE EXAMINER USE ORAL HYPOGLYCEMIC DX] Onset: 05-28-2022 Episodic Other injuries and conditions due to external causes (1 source) History of falling; Translations: [HISTORY OF FALLING] Onset: 05-28-2022 Episodic Syncope (4 sources) Syncope and collapse; Translations: [SYNCOPE AND COLLAPSE] Onset: 05-26-2022 Episodic Results Test Name Value Interpretation Reference Range Facility Hemoglobin A1Con 07-02-2024 Glucose [Mass/Vol] 131 mg/dL Normal [facility] Comment on above: Result Comment: The ADA and AACC recommend providing the estimated average glucose result to permit better patient understanding of their HBA1c result. Performed By: #### B MP, CDP, LIVP, TSH #### [address] [place], [place] [id number] General Expeditor: Chidi eRstrepo MD #### URNMAB, GLYHGB, LIPR, VD25, PSAS #### [address] [phone] General Expeditor: Obey Thorpe MD HbA1c (Bld) [Mass fraction] 6.2 % High 4.0-6.0 [facility] Comment on above: Performed By: #### B MP, CDP, LIVP, TSH #### [address] [place] [phone] General Expeditor: Chidi Restrepo MD #### URNMAB, GLYHGB, LIPR, VD25, PSAS #### [address] [phone] General Expeditor: Obey Thorpe MD Lipid Profileon 07-02-2024 Cholesterol [Mass/Vol] 165 mg/dL Normal 0-199 [facility] Comment on above: Result Comment: Cholesterol Guidelines: <200 Desirable 200-240 Borderline >240 Undesirable Performed By: #### B MP, CDP, LIVP, TSH #### [address] [place] [phone] General Expeditor: Chidi Restrepo MD #### URNMAB, GLYHGB, LIPR, VD25, PSAS #### [address] [id number] General Expeditor: Obey Thorpe MD Cholesterol in HDL [Mass/Vol] 40 mg/dL Low >40 [facility] Comment on above: Result Comment: HDL Guidelines: <40 Undesirable 40-59 Borderline >59 Desirable Performed By: #### B MP, CDP, LIVP, TSH #### [facility] [address] [place] [address] Dr. [place], [place] [phone] General Expeditor: Chidi Restrepo MD #### URNMAB, GLYHGB, LIPR, VD25, PSAS #### [place] [address] [place], [place] [phone] General Expeditor: Obey Thorpe MD Cholesterol in LDL [Mass/Vol] 101 mg/dL High 0-100 [facility] Comment on above: Result Comment: LDL Guidelines: <100 Desirable 100-129 Near to/above Desirable 130-159 Borderline >159 Undesirable Direct (measured) LDL and calculated LDL are not interchangeable tests. Performed By: #### B MP, CDP, LIVP, TSH #### [address] [place], [place] [phone] General Expeditor: Chidi Restrepo MD #### URNMAB, GLYHGB, LIPR, VD25, PSAS #### [address] [place], [place] [phone] General Expeditor: Obey Thorpe MD Cholesterol in VLDL [Mass/Vol] 24 mg/dL Normal [facility] Comment on above: Performed By: #### B MP, CDP, LIVP, TSH #### [address] [place], [place] [phone] General Expeditor: Chidi Restrepo MD #### URNMAB, GLYHGB, LIPR, VD25, PSAS #### [address] [place], [place] 7245308 General Expeditor: Obey Thorpe MD Cholesterol.total/Ch olesterol in HDL [Mass ratio] 4.0 {ratio} Normal [facility] Comment on above: Performed By: #### B MP, CDP, LIVP, TSH #### [facility] [address] [place] [address] Dr. [place], [place] [phone] General Expeditor: Chidi Restrepo MD #### URNMAB, GLYHGB, LIPR, VD25, PSAS #### [address] [place], [place] 0288208 General Expeditor: Obey Thorpe MD Triglyceride [Mass/Vol] 118 mg/dL Normal <150 [facility] Comment on above: Result Comment: Triglyceride Guidelines: <150 Desirable 150-199 Borderline 200-499 High >499 Very high Based on AHA Guidelines for fasting triglyceride, August 2012. Performed By: #### B MP, CDP, LIVP, TSH #### [address] [place] [address] General Expeditor: Chidi Restrepo MD #### URNMAB, GLYHGB, LIPR, VD25, PSAS #### [address] [place], [place] [phone] General Expeditor: Obey Thorpe MD Vitamin D 25 OHon 07-02-2024 Vitamin D 25 [place] 19.9 ng/mL Low 30.0-100.0 [facility] Comment on above: Result Comment: Reference Range: Vitamin D status Range Deficiency <20 ng/mL Mild Deficiency 20-30 ng/mL Sufficiency 30-100 ng/mL Toxicity >100 ng/mL Performed By: #### B MP, CDP, LIVP, TSH #### [address] [place] [address] General Expeditor: Chidi Restrepo MD #### URNMAB, GLYHGB, LIPR, VD25, PSAS #### [facility] [address] [place], [place] 1438508 General Expeditor: Obey Thorpe MD Basic Metabolic Profon 07-01 Anion gap [Moles/Vol] 11 mmol/L Normal 08-02 [facility] Comment on above: Performed By: #### B MP, CDP, LIVP, TSH #### [facility] [address] [place] [address] [place] [address] General Expeditor: Chidi Restrepo MD #### URNMAB, GLYHGB, LIPR, VD25, PSAS #### [address] [place] [address] General Expeditor: Obey Thorpe MD BUN/CRE Ratio 22 High 9-20 [facility] Comment on above: Performed By: #### B MP, CDP, LIVP, TSH #### [address] [place], [place] [phone] General Expeditor: Chidi Restrepo MD #### URNMAB, GLYHGB, LIPR, VD25, PSAS #### [address] [address] General Expeditor: Obey Thorpe MD Calcium [Mass/Vol] 9.0 mg/dL Normal 8.6-10.4 [facility] Comment on above: Performed By: #### B MP, CDP, LIVP, TSH #### [address] [place], [place] 3529083 General Expeditor: Chidi Restrepo MD #### URNMAB, GLYHGB, LIPR, VD25, PSAS #### [address] [address] General Expeditor: Obey Thorpe MD Chloride [Moles/Vol] 106 mmol/L Normal 98-107 [facility] Comment on above: Performed By: #### B MP, CDP, LIVP, TSH #### [address] [place], [place] [phone] General Expeditor: Chidi Restrepo MD #### URNMAB, GLYHGB, LIPR, VD25, PSAS #### [address] [address] General Expeditor: Obey Thorpe MD CO2 [Moles/Vol] 22 mmol/L Normal 20-31 [facility] Comment on above: Performed By: #### B MP, CDP, LIVP, TSH #### [facility] [address] [place] [address] [place] [address] General Expeditor: Chidi Restrepo MD #### URNM, GLYHGB, LIPR, VD25, PSAS #### [address] [place], [place] [phone] General Expeditor: Obey Thorpe MD Creatinine [Mass/Vol] 2.3 mg/dL High 0.7-1.2 [facility] Comment on above: Performed By: #### B MP, CDP, LIVP, TSH #### [address] [place] [address] General Expeditor: Chidi Restrepo MD #### URNMAB, GLYHGB, LIPR, VD25, PSAS #### [address] [place] [address] General Expeditor: Obey Thorpe MD GFR/1.73 sq M.predicted among non-blacks MDRD (S/P/Bld) [Vol rate/Area] 30 mL/min/{1.73_m2} Low >60 [facility] Comment on above: Result Comment: These results [...] #### B MP, CDP, LIVP, TSH #### [address] [place] [address] General Expeditor: Chidi Restrepo MD #### URNMAB, GLYHGB, LIPR, VD25, PSAS #### [address] [place] [place], [place] 1447108 General Expeditor: Obey Thorpe MD Glucose [Mass/Vol] 133 mg/dL High 70-99 [facility] Comment on above: Performed By: #### B MP, CDP, LIVP, TSH #### [address] [place], [place] 8846383 General Expeditor: Chidi Restrepo MD #### URNMAB, GLYHGB, LIPR, VD25, PSAS #### [address] [address] General Expeditor: Obey Thorpe MD Potassium [Moles/Vol] 4.7 mmol/L Normal 3.7-5.3 [facility] Comment on above: Performed By: #### B MP, CDP, LIVP, TSH #### [address] [place], [place] [phone] General Expeditor: Chidi Restrepo MD #### URNMAB, GLYHGB, LIPR, VD25, PSAS #### [address] [address] General Expeditor: Obey Thorpe MD Sodium [Moles/Vol] 139 mmol/L Normal 135-144 [facility] Comment on above: Performed By: #### B MP, CDP, LIVP, TSH #### [address] [place], [place] 0531883 General Expeditor: Chidi Restrepo MD #### URNMAB, GLYHGB, LIPR, VD25, PSAS #### [address] [address] General Expeditor: Obey Thorpe MD Urea nitrogen [Mass/Vol] 50 mg/dL High 8-23 [facility] Comment on above: Performed By: #### B MP, CDP, LIVP, TSH #### [address] [place], [place] 7296583 General Expeditor: Chidi Restrepo MD #### URNMAB, GLYHGB, LIPR, VD25, PSAS #### [address] [address] General Expeditor: Obey Thorpe MD CBC with Diffon 07-01-2024 Abs. Basophil 0.06 k/uL Normal 0.00-0.20 [facility] Comment on above: Performed By: #### B MP, CDP, LIVP, TSH #### [address] [place] 5784583 General Expeditor: Chidi Restrepo MD #### URNMAB, GLYHGB, LIPR, VD25, PSAS #### [place] [address] General Expeditor: Obey Thorpe MD Abs.Imm.Granulocyte 0.05 k/uL Normal 0.00-0.30 [facility] Comment on above: Performed By: #### B MP, CDP, LIVP, TSH #### [address] [place] [phone] General Expeditor: hCidi Restrepo MD #### URNMAB, GLYHGB, LIPR, VD25, PSAS #### [place] [address] General Expeditor: Obey Thorpe MD Abs.Neutrophil (Seg) 5.18 k/uL Normal 1.50-8.10 [facility] Comment on above: Performed By: #### B MP, CDP, LIVP, TSH #### [address] [place] [address] General Expeditor: Chidi Restrepo MD #### URNMAB, GLYHGB, LIPR, VD25, PSAS #### [place] [address] General Expeditor: Obey Thorpe MD Basophils/100 WBC (Bld) 1 % Normal 0-2 [facility] Comment on above: Performed By: #### B MP, CDP, LIVP, TSH #### [address] [place] 5784583 General Expeditor: Chidi Restrepo MD #### URNMAB, GLYHGB, LIPR, VD25, PSAS #### [address] [phone] General Expeditor: Obey Thorpe MD Eosinophils (Bld) [#/Vol] 0.21 10*3/uL Normal 0.00-0.44 [facility] Comment on above: Performed By: #### B MP, CDP, LIVP, TSH #### [facility] [address] [place] [address] Dr. [place] 5784583 General Expeditor: Chidi Restrepo MD #### URNMAB, GLYHGB, LIPR, VD25, PSAS #### [place] [address] General Expeditor: Obey Thorpe MD Eosinophils/100 WBC (Bld) 3 % Normal 1-4 [facility] Comment on above: Performed By: #### B MP, CDP, LIVP, TSH #### [address] [place] 5784583 General Expeditor: Chidi Restrepo MD #### URNMAB, GLYHGB, LIPR, VD25, PSAS #### [place] [phone] General Expeditor: Obey Thorpe MD Erythrocyte distribution width (RBC) [Ratio] 14.7 % High 11.8-14.4 [facility] Comment on above: Performed By: #### B MP, CDP, LIVP, TSH #### [address] [place] 5784583 General Expeditor: Chidi Restrepo MD #### URNMAB, GLYHGB, LIPR, VD25, PSAS #### [address] [phone] General Expeditor: Obey Thorpe MD Hematocrit (Bld) [Volume fraction] 37.8 % Low 40.7-50.3 [facility] Comment on above: Performed By: #### B MP, CDP, LIVP, TSH #### [address] [place] 5784583 General Expeditor: Chidi Restrepo MD #### URNMAB, GLYHGB, LIPR, VD25, PSAS #### [address] [phone] General Expeditor: Obey Thorpe MD Hemoglobin (Bld) [Mass/Vol] 12.3 g/dL Low 13.0-17.0 [facility] Comment on above: Performed By: #### B MP, CDP, LIVP, TSH #### [address] [place] 5784583 General Expeditor: Chidi Restrepo MD #### URNMAB, GLYHGB, LIPR, VD25, PSAS #### [place] [phone] General Expeditor: Obey Thorpe MD Immature granulocytes/100 WBC (Bld) 1 % High 0 [facility] Comment on above: Performed By: #### B MP, CDP, LIVP, TSH #### [address] [place] 5784583 General Expeditor: Chidi Restrepo MD #### URNMAB, GLYHGB, LIPR, VD25, PSAS #### [address] [phone] General Expeditor: Obey Thorpe MD Lymphocytes (Bld) [#/Vol] 1.57 10*3/uL Normal 1.10-3.70 [facility] Comment on above: Performed By: #### B MP, CDP, LIVP, TSH #### [address] [place] 5784583 General Expeditor: Chidi Restrepo MD #### URNMAB, GLYHGB, LIPR, VD25, PSAS #### [address] [place], [place] 2227408 General Expeditor: Obey Thorpe MD Lymphocytes/100 WBC (Bld) 20 % Low 24-43 [facility] Comment on above: Performed By: #### B MP, CDP, LIVP, TSH #### [address] [place] 5784583 General Expeditor: Chidi Restrepo MD #### URNMAB, GLYHGB, LIPR, VD25, PSAS #### [place] [place], [place] [phone] General Expeditor: Obey Thorpe MD MCH (RBC) [Entitic mass] 29.9 pg Normal 25.2-33.5 [facility] Comment on above: Performed By: #### B MP, CDP, LIVP, TSH #### [address] [place] 5784583 General Expeditor: Chidi Restrepo MD #### URNMAB, GLYHGB, LIPR, VD25, PSAS #### [address] [place], [place] [phone] General Expeditor: Obey Thorpe MD MCHC (RBC) [Mass/Vol] 32.5 g/dL Normal 28.4-34.8 [facility] Comment on above: Performed By: #### B MP, CDP, LIVP, TSH #### [address] [place] [address] General Expeditor: Chidi Restrepo MD #### URNMAB, GLYHGB, LIPR, VD25, PSAS #### [address] [place], [place] 8389808 General Expeditor: Obey Thorpe MD MCV (RBC) [Entitic vol] 92.0 fL Normal 82.6-102.9 [facility] Comment on above: Performed By: #### B MP, CDP, LIVP, TSH #### [address] [place], [place] [phone] General Expeditor: Chidi Restrepo MD #### URNMAB, GLYHGB, LIPR, VD25, PSAS #### [address] [phone] General Expeditor: Obey Thorpe MD Monocytes (Bld) [#/Vol] 0.64 10*3/uL Normal 0.10-1.20 [facility] Comment on above: Performed By: #### B MP, CDP, LIVP, TSH #### [address] [place], [place] 2847583 General Expeditor: Chidi Restrepo MD #### URNMAB, GLYHGB, LIPR, VD25, PSAS #### [address] [phone] General Expeditor: Obey Thorpe MD Monocytes/100 WBC (Bld) 8 % Normal 3-12 [facility] Comment on above: Performed By: #### B MP, CDP, LIVP, TSH #### [address] [place], [place] 6746383 General Expeditor: Chidi Restrepo MD #### URNMAB, GLYHGB, LIPR, VD25, PSAS #### [address] [phone] General Expeditor: Obey Thorpe MD Neutrophil (Seg) 67 % High 36-65 [facility] Comment on above: Performed By: #### B MP, CDP, LIVP, TSH #### [address] [place], [place] 8689083 General Expeditor: Chidi Restrepo MD #### URNMAB, GLYHGB, LIPR, VD25, PSAS #### [address] [phone] General Expeditor: Obey Thorpe MD NRBC Automated 0.0 per 100 WBC Normal 0.0 [facility] Comment on above: Performed By: #### B MP, CDP, LIVP, TSH #### [address] [place] 5784583 General Expeditor: Chidi Restrepo MD #### URNMAB, GLYHGB, LIPR, VD25, PSAS #### [address] [phone] General Expeditor: Obey Thorpe MD Platelet mean volume (Bld) [Entitic vol] 10.6 fL Normal 8.1-13.5 [facility] Comment on above: Performed By: #### B MP, CDP, LIVP, TSH #### [address] [place] 5784583 General Expeditor: Chidi Restrepo MD #### URNMAB, GLYHGB, LIPR, VD25, PSAS #### [address] [address] General Expeditor: Obey Thorpe MD Platelets (Bld) [#/Vol] 210 10*3/uL Normal 138-453 [facility] Comment on above: Performed By: #### B MP, CDP, LIVP, TSH #### [address] [place] 5784583 General Expeditor: Chidi Restrepo MD #### URNMAB, GLYHGB, LIPR, VD25, PSAS #### [address] [address] General Expeditor: Obey Thorpe MD RBC (Bld) [#/Vol] 4.11 10*6/uL Low 4.21-5.77 [facility] Comment on above: Performed By: #### B MP, CDP, LIVP, TSH #### [address] [place], [place] 4787083 General Expeditor: Chidi Restrepo MD #### URNMAB, GLYHGB, LIPR, VD25, PSAS #### [address] [phone] General Expeditor: Obey Thorpe MD WBC (Bld) [#/Vol] 7.7 10*3/uL Normal 3.5-11.3 [facility] Comment on above: Performed By: #### B MP, CDP, LIVP, TSH #### [address] [place] [address] General Expeditor: Chidi Restrepo MD #### URNMAB, GLYHGB, LIPR, VD25, PSAS #### [address] [phone] General Expeditor: Obey Thorpe MD Liver Profileon 07-01-2024 Albumin [Mass/Vol] 4.5 g/dL Normal 3.5-5.2 [facility] Comment on above: Performed By: #### B MP, CDP, LIVP, TSH #### [address] [place] [address] General Expeditor: Chidi Restrepo MD #### URNMAB, GLYHGB, LIPR, VD25, PSAS #### [address] [phone] General Expeditor: Obey Thorpe MD Albumin/Glob Ratio 1.7 Normal 1.0-2.5 [facility] Comment on above: Performed By: #### B MP, CDP, LIVP, TSH #### [address] [place] [address] General Expeditor: Chidi Restrepo MD #### URNMAB, GLYHGB, LIPR, VD25, PSAS #### [address] [place] [address] General Expeditor: Obey Thorpe MD Alkaline Phos 36 U/L Low 40-129 [facility] Comment on above: Performed By: #### B MP, CDP, LIVP, TSH #### [facility] [address] [place] [address] Dr. [place], [place] [phone] General Expeditor: Chidi Restrepo MD #### URNMAB, GLYHGB, LIPR, VD25, PSAS #### [address] [address] General Expeditor: Obey Thorpe MD ALT [Catalytic activity/Vol] 17 U/L Normal 5-41 [facility] Comment on above: Performed By: #### B MP, CDP, LIVP, TSH #### [address] [place], [place] 1550983 General Expeditor: Chidi Restrepo MD #### URNMAB, GLYHGB, LIPR, VD25, PSAS #### [address] [address] General Expeditor: Obey Thorpe MD AST [Catalytic activity/Vol] 23 U/L Normal <40 [facility] Comment on above: Performed By: #### B MP, CDP, LIVP, TSH #### [address] [place], [place] 6562583 General Expeditor: Chidi Restrepo MD #### URNMAB, GLYHGB, LIPR, VD25, PSAS #### [address] [address] General Expeditor: Obey Thorpe MD Bilirubin [Mass/Vol] 0.4 mg/dL Normal 0.3-1.2 [facility] Comment on above: Performed By: #### B MP, CDP, LIVP, TSH #### [facility] [address] [place] [address] Dr. [place], [place] [phone] General Expeditor: Chidi Restrepo MD #### URNMAB, GLYHGB, LIPR, VD25, PSAS #### [address] [phone] General Expeditor: Obey Thorpe MD Bilirubin, Indirect Can not be calculated Normal 0.0-1.0 [facility] Comment on above: Performed By: #### B MP, CDP, LIVP, TSH #### [address] [place], [place] 5615183 General Expeditor: Chidi Restrepo MD #### URNMAB, GLYHGB, LIPR, VD25, PSAS #### [address] [phone] General Expeditor: Obey Thorpe MD Bilirubin.indirect [Mass/Vol] mg/dL Normal <0.3 [facility] Comment on above: Performed By: #### B MP, CDP, LIVP, TSH #### [address] [place], [place] 0073183 General Expeditor: Chidi Restrepo MD #### URNMAB, GLYHGB, LIPR, VD25, PSAS #### [address] [phone] General Expeditor: Obey Thorpe MD Protein [Mass/Vol] 7.1 g/dL Normal 6.4-8.3 [facility] Comment on above: Performed By: #### B MP, CDP, LIVP, TSH #### [address] [place], [place] 4479283 General Expeditor: Chidi Restrepo MD #### URNMAB, GLYHGB, LIPR, VD25, PSAS #### [address] [phone] General Expeditor: Obey Thorpe MD Microalb.,Random Uron 2023 Creatinine [Mass/Vol] 58.5 mg/dL Normal 39.0-259.0 [facility] Comment on above: Performed By: #### B MP, CDP, LIVP, TSH #### [address] [place], [place] 9259783 General Expeditor: Chidi Restrepo MD #### URNMAB, GLYHGB, LIPR, VD25, PSAS #### [address] [id number] General Expeditor: Obey Thorpe MD Microalb/Creat Ratio Can not be calculated Normal 0.0-17.0 [facility] Comment on above: Performed By: #### B MP, CDP, LIVP, TSH #### [address] [place] [phone] General Expeditor: Chidi Restrepo MD #### URNMAB, GLYHGB, LIPR, VD25, PSAS #### [address] [id number] General Expeditor: Obey Thorpe MD Microalbumin conc. <12 Normal 0-20 [facility] Comment on above: Performed By: #### B MP, CDP, LIVP, TSH #### [address] [place] [phone] General Expeditor: Chidi Restrepo MD #### URNMAB, GLYHGB, LIPR, VD25, PSAS #### [place] [place], [place] [phone] General Expeditor: Obey Thorpe MD PSA, Screeningon 07-01-2024 Prostatic Spec. Ag 4.30 ng/mL High 0.00-4.00 [facility] Comment on above: Result Comment: The Tony ECLIA assay is used. Results obtained with different assay methods cannot be used interchangeably. Performed By: #### B MP, CDP, LIVP, TSH #### [address] [place] [address] General Expeditor: Chidi Restrepo MD #### URNMAB, GLYHGB, LIPR, VD25, PSAS #### [employer] [address] [place] [address] General Expeditor: Obey Thorpe MD Thyroid Stim. Horm.on 2023 Thyroid Stim. Horm. 1.26 uIU/mL Normal 0.30-5.00 [facility] Comment on above: Performed By: #### B MP, CDP, LIVP, TSH #### [facility] [address] [place] [address] General Expeditor: Chidi Restrepo MD #### JEAN, GLYHGB, LIPR, VD25, PSAS #### [facility] [employer] [address] [place] [address] General Expeditor: Obey Thorpe MD Office Visit (Cardiology)on 07-29-2023 [...] Weight Tips; Status:Complete - Retrospective Authorization; Done: [id number] Some eating tips that can help you lose weight.; Status:Complete - Retrospective Authorization; Done: [id number] Hyperlipidemia Start: Rosuvastatin Calcium 20 MG Oral Tablet; TAKE 1 TABLET DAILY SocHx: Former smoker Tobacco Use Screening; Status:Complete; Done: [id number] Patient Instructions Please bring all medicines, vitamins, [...] negative for complaint. Vitals Vital Signs Recorded: [id number] 11:20AM Heart Rate66, R Radial [id number], RUE, Sitting Yxxhctpvu61, RUE, Sitting Height5 ft 11 in Kysfzr527 lb BMI Txaireqkwy81.92 kg/m2 BSA Calculated2.26 Tobacco Useb) No PHQ-2 [...] Jul 29 2023 1:05PM EST (Author) Normal [facility] Tobacco Screening.on 023 Adult depression screening assessment No [facility] 250 DO Work Phone: Fall risk assessment b) One or more fall s in the last year [facility] 250 DO Work Phone: Tobacco use status CPHS b) No [facility] 250 DO Work Phone: XR elbow LT 2Von 03-13-2023 XR elbow LT 2V [facility] [address] [place] [address] [place] [address] XRay Report Signed Patient: Amos Castañeda MR#: [id number] 4 : 1955 Acct:[id number] Age/Sex: 67 / M ADM Date: 01/26/23 [place] [facility] [place]: Type: [facility] Attending Dr: Linden Garnica DO Copies to: Linden Garnica DO Ordering Provider: Linden Garniac DO Date of Service: 01/26/23 XR/XR elbow [...] Wilkes Jr., D.OPreston01/26/2023 3:18 PM Dictation Location: [place] [address] Transcribed By: [facility] 01/26/23 1518 Dictated By: Lane Wilkes Jr, DO 01/26/23 1518 Signed By: 01/26/23 1518 Normal [facility] XR elbow LT 2V [facility] [employer] Other XR elbow LT 2V [facility] [employer] Other XR elbow LT 2V [address] [place] [address] [employer] Other XR elbow LT 2[place] [address] No rt [employer] Other XR elbow LT 2V XRay Report [id number] Other XR elbow LT 2V Signed [employer] Other XR elbow LT 2V Patient: Amos Castañeda MR#: [id number] [place] [employer] Other XR elbow LT 2V 4 [employer] Other XR elbow LT 2V : 1955 Acct:[id number] [employer] Other XR elbow LT 2V Age/Sex: 67 / M ADM Date: 01/26/23 [employer] Other XR elbow LT 2V Loc: [facility]XD Room: Type: [facility] [employer] Other XR elbow LT 2V Attending Dr: Linden Garnica DO [employer] Other XR elbow LT 2V Copies to: Linden Garnica DO [employer] Other XR elbow LT 2V Ordering Provider: Linden Garnica DO [employer] Other XR elbow LT 2V Date of Service: 01/26/23 [employer] Other XR elbow LT 2V XR/XR elbow LT 2V: Left elbow pain [employer] Other XR elbow LT 2V LEFT ELBOW - 2 views [employer] Other XR elbow LT 2V CLINICAL HISTORY: Left elbow pain for 2 weeks after fall. [employer] Other XR elbow LT 2V COMPARISON: None [place] [employer] Other XR elbow LT 2V FINDINGS: [employer] Other XR elbow LT 2V There is soft tissue evidence of olecranon bursitis. No acute bony process is seen. [employer] Other XR elbow LT 2V XR/XR elbow LT 2V [employer] Other XR elbow LT 2V IMPRESSION: [id number] Other XR elbow LT 2V EVIDENCE OF OLECRANON BURSITIS. NO ACUTE BONY PROCESS IS SEEN. [employer] Other XR elbow LT 2V Impression dictated by: Lane Wilkes Jr. DPrestonOPreston01/26/2023 3:18 PM [employer] Other XR elbow LT 2V Dictation Location: [place] [address] [employer] Other XR elbow LT 2V Transcribed By: PWS 01/26/23 [facility] [employer] Other XR elbow LT 2V Dictated By: Lane Wilkes Jr, DO 01/26/23 1993 [employer] Other XR elbow LT 2V Signed By: [employer] Other XR elbow LT 2V 01/26/23 9764 [employer] Other GLYCOHEMOGLOBIN A1Con 2022 ADA RECOMMENDATION SEE BELOW Normal [facility] [place] [facility] Comment on above: Result Comment: ADA RECOMMENDED LIMIT 4.0 - 6.0 ADA THERAPEUTIC TARGET < 7.0 ACTION SUGGESTED > 7.0 Performed By: #### C VDTBH #### [facility] [address] [address] [address] Lior Buckley Glucose [Mass/Vol] 137 mg/dL Normal [facility] [place] [facility] Comment on above: Performed By: #### C VDTBH #### [facility] [address] [address] [address] Lior Buckley HbA1c (Bld) [Mass fraction] 6.4 % Critically high 4.5-6.2 [facility] Comment on above: Performed By: #### C VDTBH #### [facility] [address] [address] [address] Lior Buckley XR pre/post mri xrayon 09-15 XR pre/post mri xray [facility] [place] [address] MRI Report Signed Patient: Amos Castañeda MR#: [id number] 4 : 1955 Acct:[id number] Age/Sex: 66 / M ADM Date: 09/15/22 Loc: [facility] Room: Type: [facility] CLI Attending Dr: Osvaldo Almonte MD Copies to: Osvaldo Almonte MD Ordering Provider: Osvaldo Almonte MD Date of Service: 09/15/22 MR/MR lumbar spine wo con: LUMBAR STENOSIS ([id number]) XR/XR pre/post mri xray: LUMBAR STENOSIS MR [...] Blake Storey M.D.09/15/2022 4:05 PM Dictation Location: [place] [address] Transcribed By: [facility] 09/15/22 160 Dictated By: Blake Storey II, MD 09/15/22 1555 Signed By: 09/15/22 1605 [facility] CBC AUTO DIFFon 05-28-2022 BASO # 0.1 103/ul Normal 0.0-0.1 [facility] Comment on above: Performed By: #### C BC #### [facility] [address] [address] [address] Lior Buckley Basophils/100 WBC (Bld) 0.6 % Normal 0.2-2.0 [facility] Comment on above: Performed By: #### C BC #### [facility] [address] [address] [address] Lior Buckley EO # 0.2 103/ul Normal 0.0-0.7 [facility] Comment on above: Performed By: #### C BC #### [facility] [address] [address] [address] Lior Buckley Eosinophils/100 WBC (Bld) 2.1 % Normal 0.9-7.0 [facility] Comment on above: Performed By: #### C BC #### [facility] [address] [place] [address] Dr. Lior Buckley Erythrocyte distribution width (RBC) [Ratio] 15.6 % Critically high 11.0-15.0 [facility] Comment on above: Performed By: #### C BC #### [facility] [address] [place] [address] Dr. Lior Buckley Hematocrit (Bld) [Volume fraction] 42.6 % Normal 42.0-54.0 [facility] Comment on above: Performed By: #### C BC #### [facility] [address] [place] [address] Dr. Liro Buckley Hemoglobin (Bld) [Mass/Vol] 13.5 g/dL Critically low 14.0-18.0 [facility] Comment on above: Performed By: #### C BC #### [facility] [address] [place] [address] Dr. Lior Buckley IG # 0.04 10e3/ul Critically high 0.00-0.03 [facility] Comment on above: Performed By: #### C BC #### [facility] [address] [place] [address] Dr. Lior Buckley IG % 0.5 % Normal 0.0-0.5 [facility] Comment on above: Performed By: #### C BC #### [facility] [address] [place] [address] Dr. Lior Buckley LYMPH # 1.8 103/ul Normal 1.2-3.8 [facility] Comment on above: Performed By: #### C BC #### [facility] [address] [place] [address] Dr. Lior Buckley Lymphocytes/100 WBC (Bld) 21.2 % Normal 20.5-60.0 [facility] Comment on above: Performed By: #### C BC #### [facility] [address] [place] [address] Dr. Lior Buckley MANUAL DIFF REQ NO Normal [facility] Comment on above: Performed By: #### C BC #### [facility] [address] [place] [address] Dr. Lior Buckley MCH (RBC) [Entitic mass] 28.4 pg Normal 25.9-34.0 [facility] Comment on above: Performed By: #### C BC #### [facility] [address] [place] [address] Dr. Lior Buckley MCHC (RBC) [Mass/Vol] 31.7 g/dL Normal 29.9-35.2 [facility] Comment on above: Performed By: #### C BC #### [facility] [address] [place] [address] Dr. Lior Buckley MCV (RBC) [Entitic vol] 89.5 fL Normal 80.0-94.0 [facility] Comment on above: Performed By: #### C BC #### [facility] [address] [place] [address] Dr. Lior Buckley MONO # 0.8 103/ul Normal 0.3-0.8 [facility] Comment on above: Performed By: #### C BC #### [facility] [address] [place] [address] Dr. Lior Buckley Monocytes/100 WBC (Bld) 9.9 % Normal 1.7-12.0 [facility] Comment on above: Performed By: #### C BC #### [facility] [address] [place] [address] Dr. Lior Buckley NEUT # 5.4 103/ul Normal 1.4-6.5 [facility] Comment on above: Performed By: #### C BC #### [facility] [address] [place] [address] Dr. Lior Buckley Neutrophils/100 WBC (Bld) 65.7 % Normal 43.0-75.0 [facility] Comment on above: Performed By: #### C BC #### [facility] [address] [place] [address] Dr. Lior Buckley Platelet mean volume (Bld) [Entitic vol] 10.0 fL Normal 9.5-13.5 [facility] Comment on above: Performed By: #### C BC #### [facility] [address] [address] [address] Lior Buckley PLT 213 103/ul Normal 150-450 [facility] Comment on above: Performed By: #### C BC #### [facility] [address] [address] [address] Lior Buckley RBC 4.76 106/ul Normal 4.70-6.10 [facility] Comment on above: Performed By: #### C BC #### [facility] [address] [address] [address] Lior Buckley WBC 8.3 103/ul Normal 4.0-11.0 [facility] Comment on above: Performed By: #### C BC #### [facility] [address] [place] [address] Dr. Lior Buckley GLYCOHEMOGLOBIN A1Con 2021 ADA RECOMMENDATION SEE BELOW Normal [facility] Comment on above: Result Comment: ADA RECOMMENDED LIMIT 4.0 - 6.0 ADA THERAPEUTIC TARGET < 7.0 ACTION SUGGESTED > 7.0 Performed By: #### C VDTBH #### [facility] [address] [place] [address] Dr. Lior Buckley Glucose [Mass/Vol] 189 mg/dL Normal [facility] [place] [facility] Comment on above: Performed By: #### C VDTBH #### [facility] [address] [place] [address] Dr. Lior Buckley HbA1c (Bld) [Mass fraction] 8.2 % Critically high 4.5-6.2 [facility] Comment on above: Performed By: #### C VDTBH #### [facility] [address] [place] [address] Dr. Lior Buckley LIPID PROFILEon 05-28-2022 CHOL-HDL RATIO NORM SEE BELOW Normal [facility] Comment on above: Result Comment: 3.3 - 4.4 LOW RISK 4.4 - 7.1 AVERAGE RISK 7.1 - 11.0 MODERATE RISK >11.0 HIGH RISK Performed By: #### T SH, LIPID, BMP, LIVER #### [facility] [address] [address] [address] Lior Buckley Cholesterol [Mass/Vol] 178 mg/dL Normal <=200 [facility] Comment on above: Performed By: #### T SH, LIPID, BMP, LIVER #### [facility] [address] [address] [address] Lior Buckley Cholesterol in HDL [Mass/Vol] 36 mg/dL Critically low 40-60 [facility] Comment on above: Performed By: #### T SH, LIPID, BMP, LIVER #### [facility] [address] [address] [address] Lior Buckley Cholesterol in LDL [Mass/Vol] 116.2 mg/dL Normal [facility] Comment on above: Performed By: #### T SH, LIPID, BMP, LIVER #### [facility] [address] [address] [address] Lior Buckley Cholesterol.total/Ch olesterol in HDL [Mass ratio] 4.9 {ratio} Normal [facility] Comment on above: Performed By: #### T SH, LIPID, BMP, LIVER #### [facility] [address] [address] [address] Lior Buckley HDL NORMAL > or = 60 mg/dl - LOW CARDIOVASCULAR RISK <40 mg/dl - HIGH CARDIOVASCULAR RISK Normal [facility] Comment on above: Performed By: #### T SH, LIPID, BMP, LIVER #### [facility] [address] [address] [address] Lior Buckley LDL CALC NORMAL SEE BELOW Normal [facility] Comment on above: Result Comment: <100 mg/dl OPTIMAL 100 - 129 mg/dl NEAR OR ABOVE OPTIMAL 130 - 159 mg/dl BORDERLINE HIGH 160 - 189 mg/dl HIGH >190 mg/dl VERY HIGH Performed By: #### T SH, LIPID, BMP, LIVER #### [facility] [address] [address] [address] Lior Buckley Triglyceride [Mass/Vol] 129 mg/dL Normal <=150 [facility] Comment on above: Performed By: #### T SH, LIPID, BMP, LIVER #### [facility] [address] [address] [address] Lior Buckley VLDL CALC 25.8 mg/dL Normal [facility] Comment on above: Performed By: #### T SH, LIPID, BMP, LIVER #### [facility] [address] [address] [address] Lior Buckley LIVER PROFILEon 05-28-2022 Albumin [Mass/Vol] 4.2 g/dL Normal 3.4-5.0 [facility] Comment on above: Performed By: #### T SH, LIPID, BMP, LIVER #### [facility] [address] [place] [address] Dr. Lior Buckley Albumin/Globulin [Mass ratio] 1.2 {ratio} Normal [facility] Comment on above: Performed By: #### T SH, LIPID, BMP, LIVER #### [facility] [address] [place] [address] Dr. Lior Buckley ALP [Catalytic activity/Vol] 43 U/L Critically low 46-116 [facility] Comment on above: Performed By: #### T SH, LIPID, BMP, LIVER #### [facility] [address] [place] [address] Dr. Lior Buckley ALT [Catalytic activity/Vol] 30 U/L Normal 16-63 [facility] Comment on above: Performed By: #### T SH, LIPID, BMP, LIVER #### [facility] [address] [place] [address] Dr. Lior Buckley AST [Catalytic activity/Vol] 18 U/L Normal 15-37 [facility] Comment on above: Performed By: #### T SH, LIPID, BMP, LIVER #### [facility] [address] [place] [address] Dr. Lior Buckley BILI, CONJUGATED 0.1 mg/dL Normal 0.0-0.2 [facility] Comment on above: Performed By: #### T SH, LIPID, BMP, LIVER #### [facility] [address] [place] [address] Dr. Lior Buckley Bilirubin [Mass/Vol] 0.6 mg/dL Normal 0.2-1.0 [facility] Comment on above: Performed By: #### T SH, LIPID, BMP, LIVER #### [facility] [address] [address] [address] Lior Buckley Globulin (S) [Mass/Vol] 3.4 g/dL Normal [facility] Comment on above: Performed By: #### T SH, LIPID, BMP, LIVER #### [facility] [address] [address] [address] Lior Buckley Protein [Mass/Vol] 7.6 g/dL Normal 6.4-8.2 [facility] [place] [facility] Comment on above: Performed By: #### T SH, LIPID, BMP, LIVER #### [facility] [address] [place] [address] Dr. Lior Buckley MICROALBUMIN, RAND URon 07- mALB <1.3 Normal <=30.0 [facility] Comment on above: Performed By: #### C VDTBH #### [facility] [address] [place] [address] Dr. Lior Buckley PROF CHEM 8 (BAS METB)on Anion gap [Moles/Vol] 14.3 mmol/L Normal [facility] Comment on above: Performed By: #### T SH, LIPID, BMP, LIVER #### [facility] [address] [place] [address] Dr. Lior Buckley Calcium [Mass/Vol] 9.5 mg/dL Normal 8.5-10.1 [facility] [place] [facility] Comment on above: Performed By: #### T SH, LIPID, BMP, LIVER #### [facility] [address] [place] [address] Dr. Lior Buckley Chloride [Moles/Vol] 103 mmol/L Normal 98-107 [facility] Comment on above: Performed By: #### T SH, LIPID, BMP, LIVER #### [facility] [address] [place] [address] Dr. Lior Buckley CO2 [Moles/Vol] 26.0 mmol/L Normal 21.0-32.0 [facility] [place] [facility] Comment on above: Performed By: #### T SH, LIPID, BMP, LIVER #### [facility] [address] [place] [address] Dr. Lior Buckley Creatinine [Mass/Vol] 2.22 mg/dL Critically high 0.70-1.30 [facility] Comment on above: Performed By: #### T SH, LIPID, BMP, LIVER #### [facility] [address] [place] [address] Dr. Lior Buckley EGFR-AF BENINESE 36 mL/min/1.73m2 Critically low >=60 [facility] Comment on above: Performed By: #### T SH, LIPID, BMP, LIVER #### [facility] [address] [place] [address] Dr. Lior Buckley EGFR-NON AF BENINESE 30 mL/min/1.73m2 Critically low >=60 [facility] Comment on above: Performed By: #### T SH, LIPID, BMP, LIVER #### [facility] [address] [place] [address] Dr. Lior Buckley Glucose [Mass/Vol] 142 mg/dL Critically high 74-106 [facility] Comment on above: Performed By: #### T SH, LIPID, BMP, LIVER #### [facility] [address] [place] [address] Dr. Lior Buckley Potassium [Moles/Vol] 4.3 mmol/L Normal 3.5-5.1 [facility] Comment on above: Performed By: #### T SH, LIPID, BMP, LIVER #### [facility] [address] [place] [address] Dr. Lior Buckley Sodium [Moles/Vol] 139 mmol/L Normal 136-145 [facility] Comment on above: Performed By: #### T SH, LIPID, BMP, LIVER #### [facility] [address] [place] [address] Dr. Lior Buckley Urea nitrogen [Mass/Vol] 48.0 mg/dL Critically high 7.0-18.0 [facility] Comment on above: Performed By: #### T SH, LIPID, BMP, LIVER #### [facility] [address] [place] [address] Dr. Lior Buckley Urea nitrogen/Creatinine [Mass ratio] 21.6 mg/mg Normal [facility] Comment on above: Performed By: #### T SH, LIPID, BMP, LIVER #### [facility] [address] [place] [address] Dr. Lior Buckley TSHon 05-28-2022 TSH 1.854 uIU/mL Normal 0.358-3.740 [facility] Comment on above: Performed By: #### T SH, LIPID, BMP, LIVER #### [facility] [address] [place] [address] Dr. Lior Buckley VITAMIN D 25 OHon 05-28-2022 VIT D 25-OH 28.3 ng/mL Normal [facility] Comment on above: Performed By: #### V MARGARITA, PSASC #### [facility] [address] [place] [address] Dr. Lior Buckley VIT D RANGES SEE BELOW Normal [facility] Comment on above: Result Comment: <20 ng/mL Vit D deficient 20 - <30 ng/mL Vit D insufficient 30 - 100 ng/mL Vit D sufficient >100 ng/mL Potential Toxicity Performed By: #### V MARGARITA, PSASC #### [facility] [address] [place] [address] Dr. Lior Buckley TROPONIN, HIGH SENSITIVITYon 05-27-2022 HSTROP 8.8 pg/mL Normal 4.0-76.1 [facility] Comment on above: Result Comment: CUT- OFF POINTS HAVE BEEN ESTABLISHED BASED ON THE FOURTH UNIVERSAL DEFINITIONS OF MYOCARDIAL INFARCTION. THE UPPER REFERENCE LIMIT (URL) OF TROPONIN, DEFINED THE 99TH PERCENTILE OF cTnI DISTRIBUTION IN A REFERENCE POPULATION, HAS BEEN CONFIRMED THE DECISION THRESHOLD FOR GA DIAGNOSIS. Performed By: #### T SH, LIPID, BMP, LIVER #### [facility] [address] [place] [address] Dr. Lior Buckley CBC AUTO DIFFon 05-26-2022 BASO # 0.0 103/ul Normal 0.0-0.1 [facility] Comment on above: Performed By: #### C VDTBH #### [facility] [address] [place] [address] Dr. Lior Buckley Basophils/100 WBC (Bld) 0.4 % Normal 0.2-2.0 [facility] Comment on above: Performed By: #### C VDTBH #### [facility] [address] [place] [address] Dr. Loir Buckley EO # 0.2 103/ul Normal 0.0-0.7 [facility] Comment on above: Performed By: #### C VDTBH #### [facility] [address] [place] [address] Dr. Lior Buckley Eosinophils/100 WBC (Bld) 2.3 % Normal 0.9-7.0 [facility] Comment on above: Performed By: #### C VDTBH #### [facility] [address] [place] [address] Dr. Lior Buckley Erythrocyte distribution width (RBC) [Ratio] 15.5 % Critically high 11.0-15.0 [facility] Comment on above: Performed By: #### C VDTBH #### [facility] [address] [place] [address] Dr. Lior Buckley Hematocrit (Bld) [Volume fraction] 42.6 % Normal 42.0-54.0 [facility] Comment on above: Performed By: #### C VDTBH #### [facility] [address] [place] [address] Dr. Lior Buckley Hemoglobin (Bld) [Mass/Vol] 13.8 g/dL Critically low 14.0-18.0 [facility] Comment on above: Performed By: #### C VDTBH #### [facility] [address] [place] [address] Dr. Lior Buckley IG # 0.08 10e3/ul Critically high 0.00-0.03 [facility] Comment on above: Performed By: #### C VDTBH #### [facility] [address] [place] [address] Dr. Lior Buckley IG % 0.8 % Critically high 0.0-0.5 [facility] Comment on above: Performed By: #### C VDTBH #### [facility] [address] [place] [address] Dr. Lior Buckley LYMPH # 1.6 103/ul Normal 1.2-3.8 [facility] Comment on above: Performed By: #### C VDTBH #### [facility] [address] [place] [address] Dr. Lior Buckley Lymphocytes/100 WBC (Bld) 15.9 % Critically low 20.5-60.0 [facility] Comment on above: Performed By: #### C VDTBH #### [facility] [address] [place] [address] Dr. Lior Buckley MANUAL DIFF REQ NO Normal [facility] Comment on above: Performed By: #### C VDTBH #### [facility] [address] [place] [address] Dr. Lior Buckley MCH (RBC) [Entitic mass] 28.6 pg Normal 25.9-34.0 [facility] Comment on above: Performed By: #### C VDTBH #### [facility] [address] [place] [address] Dr. Lior Buckley MCHC (RBC) [Mass/Vol] 32.4 g/dL Normal 29.9-35.2 [facility] Comment on above: Performed By: #### C VDTBH #### [facility] [address] [place] [address] Dr. Lior Buckley MCV (RBC) [Entitic vol] 88.4 fL Normal 80.0-94.0 [facility] Comment on above: Performed By: #### C VDTBH #### [facility] [address] [place] [address] Dr. Lior Buckley MONO # 0.8 103/ul Normal 0.3-0.8 [facility] Comment on above: Performed By: #### C VDTBH #### [facility] [address] [place] [address] Dr. Lior Buckley Monocytes/100 WBC (Bld) 8.1 % Normal 1.7-12.0 [facility] Comment on above: Performed By: #### C VDTBH #### [facility] [address] [address] [address] Lior Buckley NEUT # 7.5 103/ul Critically high 1.4-6.5 [facility] Comment on above: Performed By: #### C VDTBH #### [facility] [address] [address] [address] Lior Buckley Neutrophils/100 WBC (Bld) 72.5 % Normal 43.0-75.0 [facility] Comment on above: Performed By: #### C VDTBH #### [facility] [address] [address] [address] Lior Buckley Platelet mean volume (Bld) [Entitic vol] 9.9 fL Normal 9.5-13.5 [facility] Comment on above: Performed By: #### C VDTBH #### [facility] [address] [place] [address] Dr. Lior Buckley PLT 210 103/ul Normal 150-450 [facility] Comment on above: Performed By: #### C VDTBH #### [facility] [address] [place] [address] Dr. Lior Buckley RBC 4.82 106/ul Normal 4.70-6.10 [facility] Comment on above: Performed By: #### C VDTBH #### [facility] [address] [place] [address] Dr. Lior Buckley WBC 10.3 103/ul Normal 4.0-11.0 [facility] Comment on above: Performed By: #### C VDTBH #### [facility] [address] [place] [address] CSPINE WO CONon [...] GEOFFREY CELAYA Date: 2022-05-26 20:14 Normal [facility] CT HEAD WO CONon 05-26-2022 CT HEAD [...] MINOO AGUILA Date: 2022-05-26 19:36 Normal [facility]16 SARS-CoV-2 (COVID-19) RNA GAMAL+probe Ql (Unsp spec) Not detected Normal NOT DETECTED [facility] Comment on above: Result Comment: When diagnostic [...] for this test is supported by the Administrative Services Officer of Health and Human Service's declaration that [...] used). Performed By: #### C VDTBH #### [facility] [address] [place] [address] Dr. Lior Buckley D-DIMERon 05-26-2022 D-DIMER 1.27 mg/L FEU Critically high <=0.59 [facility] [place] [facility] Comment on above: Performed By: #### D DIM #### [facility] [address] [place] [address] Dr. Lior Buckley D-DIMER COMMENTS SEE BELOW Normal [facility] Comment on above: Result Comment: Incr eases [...] hospitalization. Performed By: #### D DIM #### [facility] [address] [place] [address] Dr. Lior Buckley FREE T4on 05-26-2022 Free T4 [Mass/Vol] 1.09 ng/dL Normal 0.76-1.46 [facility] [place] [facility] Comment on above: Performed By: #### F T4 #### [facility] [address] [place] [address] Dr. Lior Buckley POINT OF CARE GLUCOSEon 05-16 Glucose [Mass/Vol] 109 mg/dL Critically high 74-106 [facility] Comment on above: Performed By: #### C VDTBH #### [facility] [address] [place] [address] Dr. Lior Buckley PROF 14(COMP METB)on 022 Albumin [Mass/Vol] 4.1 g/dL Normal 3.4-5.0 [facility] Comment on above: Performed By: #### C VDTBH #### [facility] [address] [place] [address] Dr. Lior Buckley Albumin/Globulin [Mass ratio] 1.2 {ratio} Normal [facility] Comment on above: Performed By: #### C VDTBH #### [facility] [address] [place] [address] Dr. Lior Buckley ALP [Catalytic activity/Vol] 45 U/L Critically low 46-116 [facility] Comment on above: Performed By: #### C VDTBH #### [facility] [address] [place] [address] Dr. Lior Buckley ALT [Catalytic activity/Vol] 30 U/L Normal 16-63 [facility] Comment on above: Performed By: #### C VDTBH #### [facility] [address] [place] [address] Dr. Lior Buckley Anion gap [Moles/Vol] 11.5 mmol/L Normal [facility] Comment on above: Performed By: #### C VDTBH #### [facility] [address] [place] [address] Dr. Lior Buckley AST [Catalytic activity/Vol] 20 U/L Normal 15-37 [facility] Comment on above: Performed By: #### C VDTBH #### [facility] [address] [place] [address] Dr. Lior Buckley Bilirubin [Mass/Vol] 0.6 mg/dL Normal 0.2-1.0 [facility] Comment on above: Performed By: #### C VDTBH #### [facility] [address] [address] [address] Lior Buckley Calcium [Mass/Vol] 9.5 mg/dL Normal 8.5-10.1 [facility] Comment on above: Performed By: #### C VDTBH #### [facility] [address] [address] [address] Lior Buckley Chloride [Moles/Vol] 104 mmol/L Normal 98-107 [facility] Comment on above: Performed By: #### C VDTBH #### [facility] [address] [place] [address] Dr. Lior Buckley CO2 [Moles/Vol] 25.9 mmol/L Normal 21.0-32.0 [facility] Comment on above: Performed By: #### C VDTBH #### [facility] [address] [place] [address] Dr. Lior Buckley Creatinine [Mass/Vol] 2.21 mg/dL Critically high 0.70-1.30 [facility] Comment on above: Performed By: #### C VDTBH #### [facility] [address] [place] [address] Dr. Lior Buckley EGFR-AF BENINESE 36 mL/min/1.73m2 Critically low >=60 [facility] Comment on above: Performed By: #### C VDTBH #### [facility] [address] [place] [address] Dr. Lior Buckley EGFR-NON AF BENINESE 30 mL/min/1.73m2 Critically low >=60 [facility] Comment on above: Performed By: #### C VDTBH #### [facility] [address] [place] [address] Dr. Lior Buckley Globulin (S) [Mass/Vol] 3.3 g/dL Normal [facility] Comment on above: Performed By: #### C VDTBH #### [facility] [address] [address] [address] Lior Buckley Glucose [Mass/Vol] 115 mg/dL Critically high 74-106 [facility] Comment on above: Performed By: #### C VDTBH #### [facility] [address] [place] [address] Dr. Lior Buckley Potassium [Moles/Vol] 4.4 mmol/L Normal 3.5-5.1 [facility] Comment on above: Performed By: #### C VDTBH #### [facility] [address] [place] [address] Dr. Lior Buckley Protein [Mass/Vol] 7.4 g/dL Normal 6.4-8.2 [facility] Comment on above: Performed By: #### C VDTBH #### [facility] [address] [place] [address] Dr. Lior Buckley Sodium [Moles/Vol] 137 mmol/L Normal 136-145 [facility] Comment on above: Performed By: #### C VDTBH #### [facility] [address] [place] [address] Dr. Lior Buckley Urea nitrogen [Mass/Vol] 57.0 mg/dL Critically high 7.0-18.0 [facility] Comment on above: Performed By: #### C VDTBH #### [facility] [address] [place] [address] Dr. Lior Buckley Urea nitrogen/Creatinine [Mass ratio] 25.8 mg/mg Normal [facility] Comment on above: Performed By: #### C VDTBH #### [facility] [address] [place] [address] Dr. Lior Buckley TROPONIN, HIGH SENSITIVITYon 05-26-2022 HSTROP 8.4 pg/mL Normal 4.0-76.1 [facility] Comment on above: Result Comment: CUT- OFF POINTS HAVE BEEN ESTABLISHED BASED ON THE FOURTH UNIVERSAL DEFINITIONS OF MYOCARDIAL INFARCTION. THE UPPER REFERENCE LIMIT (URL) OF TROPONIN, DEFINED THE 99TH PERCENTILE OF cTnI DISTRIBUTION IN A REFERENCE POPULATION, HAS BEEN CONFIRMED THE DECISION THRESHOLD FOR GA DIAGNOSIS. Performed By: #### C VDTBH #### [facility] [address] [place], [place] [address] Dr. Lior Buckley TSHon 05-26-2022 TSH 1.911 uIU/mL Normal 0.358-3.740 [facility] Comment on above: Performed By: #### C VDTB #### [facility] [id number] Lior Buckley XR CHEST 1 Von [...] RADHA MERINO Date: 2022-05-26 20:19 Normal [facility] Tobacco Screening.on 022 Adult depression screening assessment No [facility] DO Work Phone: Fall risk assessment b) One or more fall s in the last year [facility] 250 DO Work Phone: Tobacco use status CPHS b) No [facility] DO Work Phone: Vital Signs Date Time Vital Sign Value Performing Clinician Wayloni nina 04-07-2024 17:51-0400 Body height 182.88 cm [facility] 04-07-2024 17:51-0400 Body mass index (BMI) [Ratio] 32.7 kg/m2 [facility] 04-07-2024 17:51-0400 Body temperature 99.5 [degF] [facility] 04-07-2024 17:51-0400 Body weight 109.48 kg [facility] 04-07-2024 17:51-0400 Diastolic blood pressure 65 mm[Hg] [facility] 04-07-2024 17:51-0400 Heart rate 69 /min [facility] 04-07-2024 17:51-0400 Respiratory rate 18 /min [facility] 04-07-2024 17:51-0400 SaO2% (BldA) [Mass fraction] 97 % [facility] 04-07-2024 17:51-0400 Systolic blood pressure 104 mm[Hg] [facility] 07-29-2023 11:20-0400 Body height 180.34 cm Dusty A Naderer Work Phone: [facility] DO Work Phone: 07-29-2023 11:20-0400 Body mass index (BMI) [Ratio] 32.92 kg/m2 Dusty A Naderer Work Phone: [facility] DO Work Phone: 07-29-2023 11:20-0400 Body surface area Derived from formula 2.26 m2 Dusty A Naderer Work Phone: [facility] DO Work Phone: 07-29-2023 11:20-0400 Body weight 107.05 kg Dusty A Naderer Work Phone: [facility] DO Work Phone: 07-29-2023 11:20-0400 Diastolic blood pressure 62 mm[Hg] Dusty A Naderer Work Phone: [facility] DO Work Phone: 07-29-2023 11:20-0400 Heart rate 66 /min Dusty A Naderer Work Phone: [facility] DO Work Phone: 07-29-2023 11:20-0400 Systolic blood pressure 118 mm[Hg] Dusty A Naderer Work Phone: [facility] DO Work Phone: 04-17-2022 10:22-0400 Body height 181.61 cm Dusty A Naderer Work Phone: [facility] DO Work Phone: 04-17-2022 10:22-0400 Body mass index (BMI) [Ratio] 32.46 kg/m2 Dusty Alonso Refugioerer Work Phone: [facility] DO Work Phone: 04-17-2022 10:22-0400 Body surface area Derived from formula 2.27 m2 Dusty Alonso Naderer Work Phone: [facility] DO Work Phone: 04-17-2022 10:22-0400 Body weight 107.05 kg Dusty Alonso Refugioerer Work Phone: [facility] DO Work Phone: 04-17-2022 10:22-0400 Diastolic blood pressure 76 mm[Hg] Dusty Alonso Refugioerer Work Phone: [facility] DO Work Phone: 04-17-2022 10:22-0400 Heart rate 78 /min Dusty Celeste Hufferer Work Phone: [facility] DO Work Phone: 04-17-2022 10:22-0400 Systolic blood pressure 120 mm[Hg] Dusty Alonso Refugioerer Work Phone: [facility] DO Work Phone: Encounters Encounter Date Encounter Type Care Provider Facility Start: 07-27-2024 End: 07-27-2024 ambulatory DUSTY RUSH Not Available Start: 07-01-2024 End: 07-01-2024 [facility] Start: 05-05-2024 End: 05-05-2024 amb[facility] Start: 04-07-2024 End: 05-23-2024 ambulatory [place] Work Phone: Start: 04-07-2024 End: 04-07-2024 Patient encounter procedure [facility] [place] Work Phone: Start: 07-29-2023 Office outpatient vi sit 25 minutes Dusty Rush Work Phone: [facility] DO Work Phone: Start: 07-29-[address] Kris Harris Facility: Start: 01-26-2023 Office outpatient ne w 45 minutes Linden Garncia [facility] Start: 01-26-2023 End: 01-26-2023 ambulatory Linden Garnica Facility:[facility] Start: 01-26-2023 End: 01-26-2023 ambulatory NON STAFF [facility] Work Phone: Start: 01-26-2023 End: 01-26-2023 Patient encounter procedure [facility] Start: 01-13-2023 Rx Renewal Dusty Rush Work Phone: [facility] DO Work Phone: Start: 12-10-2022 End: 12-10-[address] DUSTY RUSH Facility:[facility] Start: 12-08-2022 End: 12-09-[address] DUSTY RUSH Facility:[facility] Start: 09-15-2022 End: 09-15-2022 ambulatory Osvaldo Almonte Facility:[facility] Start: 09-15-2022 End: 09-15-2022 ambulatory NON STAFF [facility] Work Phone: Start: 09-15-2022 End: 09-15-2022 Patient encounter procedure MD Osvaldo Almonte Work Phone: [facility] [address] Start: 08-05-2022 Rx Renewal Dusty Rush Work Phone: [facility] DO Work Phone: Start: 05-28-2022 End: 05-29-[address] DUSTY RUSH Facility:[facility] Start: 05-26-2022 End: 05-27-[address] DUSTY RUSH Facility:[facility] Start: 04-17-2022 Office outpatient vi sit 15 minutes Dusty Rush Work Phone: [facility] DO Work Phone: Start: 03-04-2022 Rx Renewal Kris Lopezdo george DO Work Phone: [facility] DO Work Phone: Start: 12-30-2021 Rx Renewal Kris Lopezdo george DO Work Phone: [facility] DO Work Phone: Start: 12-13-2021 Rx Renewal Kris Lopezdo george DO Work Phone: [facility] DO Work Phone: Start: 08-21-2021 Rx Renewal Kris Peña doris DO Work Phone: [facility] DO Work Phone: Start: 01-06-2019 [...] Performed By: #### V ITAD, PSASC #### [facility] [address] [place] [address] Dr. Lior Buckley Appendectomy Kris Harris DO Work Phone: [...] Kris Harris, Status: Pen, Time: 10:50 AM [facility] 250 DO Work Phone: Start: 04-23-2023 FUV, Provider: Kris Harris, Status: Pen, Time: 9:00 AM [facility], Provider: Kris Harris, Status: Pen, Time: 9:00 AM [facility] 250 DO Work Phone: Start: 04-17-2022 FUV, Provider: Kris Harris, Status: Pen, Time: 10:20 AM [facility], Provider: Kris Harris, Status: Pen, Time: 10:20 AM [facility] DO Work Phone: Start: 02-12-2022 FUV, Provider: Kris Harris, Status: Pen, Time: 9:20 AM [facility], Provider: Kris Harris, Status: Pen, Time: 9:20 AM [facility] 250 DO Work Phone: Immunizations Immunization Date Immunization Notes Care Provider Derek cerna 09-09-2022 Fluad Quadrivalent 0 .5 ML Intramuscular Prefilled Syringe Dusty Alonso [employer] [facility]: [facility] Work Phone: 12-13-2021 Moderna COVID-19 Vac cine 100 MCG/0.5ML Intramuscular Suspension Dusty Alonso Naderer Work Phone: [facility] 250 DO Work Phone: 08-29-2021 influenza, injectabl e, quadrivalent, preservative free Dusty A Naderer Work Phone: [facility] 250 DO Work Phone: 02-08-2021 Moderna COVID-19 Vac cine 100 MCG/0.5ML Intramuscular Suspension Dusty A Naderer Work Phone: [facility] 250 DO Work Phone: 01-09-2021 Moderna COVID-19 Vac cine 100 MCG/0.5ML Intramuscular Suspension Dusty A Naderer Work Phone: [place] [address] DO Work Phone: 07-28-2020 influenza, injectabl e, quadrivalent, preservative free Dusty A Naderer Work Phone: [place] [address] DO Work Phone: 07-17-2020 influenza virus vacc ine, unspecified formulation Kris Harris DO Work Phone: [place] [address] DO Work Phone: 07-17-2020 zoster vaccine, live Kris Harris DO Work Phone: [place] [address] DO Work Phone: 10-16-2019 zoster vaccine recombinant Kris Harris DO Work Phone: [place] [address] DO Work Phone: 08-16-2019 influenza virus vacc ine, unspecified formulation Kris Harris DO Work Phone: [place] [address] DO Work Phone: 07-17-2019 zoster vaccine recombinant Kris Harris DO Work Phone: [place] [address] DO Work Phone: 07-08-2019 influenza, injectabl e, quadrivalent, preservative free Dusty A Naderer Work Phone: [place] [address] DO Work Phone: 07-08-2019 zoster vaccine recombinant Dusty Alonso Naderer Work Phone: [place] [address] DO Work Phone: 05-11-2019 tetanus toxoid, redu efren diphtheria toxoid, and acellular pertussis vaccine, adsorbed Dusty Alonso Naderer Work Phone: [place] [address] DO Work Phone: 05-11-2019 zoster vaccine recombinant Dusty Alonso Nadindiar Work Phone: [place] [address] DO Work Phone: 07-17-2018 influenza virus vacc ine, unspecified formulation Kris Harris DO Work Phone: [place] [address] DO Work Phone: 07-09-2018 influenza, injectabl e, quadrivalent, preservative free Dusty Alonso Nadindiar Work Phone: [place] [address] DO Work Phone: 07-01-2018 pneumococcal polysaccharide vaccine, 23 valent Dusty Alonso Nadindiar Work Phone: [place] [address] DO Work Phone: 03-14-2018 tetanus toxoid, redu efren diphtheria toxoid, and acellular pertussis vaccine, adsorbed Dusty Alonso Nadindiar Work Phone: [place] [address] DO Work Phone: 07-09-2017 influenza, injectabl e, quadrivalent, preservative free Dusty Alonso Naderer Work Phone: [place] [address] DO Work Phone: 06-19-2017 influenza virus vacc ine, unspecified formulation Kris Harris DO Work Phone: [facility] 250 DO Work Phone: 09-14-2016 zoster vaccine, live Dusty Alonso Nadnoel Work Phone: [facility] 250 DO Work Phone: 08-20-2016 pneumococcal conjuga te vaccine, 13 valent Dusty Alonso Nadindiar Work Phone: [facility] 250 DO Work Phone: 08-12-2016 influenza, seasonal, injectable, preservative free Dusty Alonso Nadnoel Work Phone: [facility] [employer] DO Work Phone: 11-16-2015 pneumococcal polysaccharide vaccine, 23 valent Kris Harris DO Work Phone: [place] [address] DO Work Phone: 11-16-2015 zoster vaccine, live Kris Lopezdon DO Work Phone: [place] [address] DO Work Phone: 08-30-2015 influenza virus vacc ine, unspecified formulation Kris Harris DO Work Phone: [facility] 250 DO Work Phone: 08-16-2015 influenza virus vacc ine, unspecified formulation Kris Harris DO Work Phone: [facility] 250 DO Work Phone: 07-17-2014 influenza virus vacc ine, unspecified formulation Kris Harris DO Work Phone: [facility] 250 DO Work Phone: 07-29-2013 influenza virus vacc ine, unspecified formulation Kris Harris DO Work Phone: [facility] 250 DO Work Phone: 07-27-2013 influenza virus vacc ine, unspecified formulation Kris Harris DO Work Phone: [facility] 250 DO Work Phone: 01-04-2010 novel influenza-H1N1 -09, preservative-free, injectable Dusty Rush Work Phone: [facility] 250 DO Work Phone: Payers Date Payer Category Payer Self-pay 1959 Private Health Insurance [facility] [id number] 1955 Unknown [id number] 2.16.8 [id number] 1955 Unknown [id number] 2.16.84 [id number] 1956 Unknown [id number] 2.16.84 [id number] 1955 Unknown [id number] 2.16.84 [id number] 1956 Unknown [id number] 2.16.84 [id number] 1956 Unknown [id number] 2.16. [id number] 1955 Unknown [id number] 2.16.8 [id number] 1956 Unknown [id number] 2.16.8 [id number] 1955 Unknown [id number] 2.16.84 [id number] Unknown [id number] Unknown Unknown [facility] [place] [id number] Unknown [id number] 2.16.8 [id number] Unknown [id number] 2.16.8 [id number] Social History Date Type Detail Facility Occasional alcohol use Occasional alcohol use -[facility] 250 DO Work Phone: Comment on above: 2 cups coffee daily; Quit around the year , 1994; Start: 1955 Sex Assigned At Male F [facility] Sex Assigned At Sex Assigned At Bir th [facility] Other Evaluation note 01-26-2023 Note Date & [...] as documented in the electronic medical record. [facility] Other Evaluation note Note Date & Type Note Facility Evaluation note No assessment information availa [facility] Work Phone: Evaluation note Note Date & Type Note Facility Evaluation note Diagnosis Onset Date Sinusitis, acute, maxillary acute [facility] Work Phone: History general Narrative - Reported Note Date & Type Note Facility History general Narrative - Reported Type Medical History hypertension Medical History hyperlipidemia Medical History Diabetes type 2 Surgical History hear stents x2 908 Devices Other Summary Purpose Family History No Family [...] was normal in 2021. PCI's date back [id number]. * He has underlying diabetes, chronic kidney [...] was normal in 2021. PCI's date back [id number]. * He has underlying diabetes, chronic kidney [...] section and content) DATE CREATED AUTHOR 01/28/2019 [facility] DATE CREATED AUTHOR AUTHOR'S ORGANIZ ATION 12/25/2022 [facility] DATE CREATED AUTHOR AUTHOR'S ORGANIZ ATION 01/31/2023 [facility] DATE CREATED AUTHOR AUTHOR'S ORGANIZ ATION 07/30/2023 [facility] DATE CREATED AUTHOR AUTHOR'S ORGANIZ ATION 07/31/2023 [facility] DATE CREATED AUTHOR AUTHOR'S ORGANIZ ATION 07/03/2024 [facility] DATE CREATED AUTHOR AUTHOR'S ORGANIZ ATION 07/28/2024 [facility] EPIC Care Teams (unrecognized [...] BE BASED ON THE PRIMARY CLINICAL RECORDS. [facility]. provides no warranty or guarantee of the accuracy or completeness of information in this document.
== END 2024-08-02 14:05 | disposition home or self-care (01) ==
LOC: LAB 14:04
PROVIDERS: PCP Family Medicine; Visit Provider Family Medicine
DX: R19.7 Diarrhea, unspecified (principal)
CPT/HCPCS: 87045; 87046; 87427; 87493

== ENCOUNTER 2024-08-05 10:18 | Outpatient (OUT) | payer MEDICARE, SELFPAY ==
--- NOTE | 2024-08-05 | NM_ITS ---
Patient Name: EMILEE CASTAÑEDA MR#: [id number] : 1955 Exam Date: 08/05/2024 Ordering Doctor: DR Dusty Mejia . RADIOLOGY REPORT PROCEDURE: NM MAJO PERF SPECT REST STR COMPARISON: None. INDICATIONS: CHEST PAIN, CORONARY ARTERY DISEASE INVOLVING [place] HEART TECHNIQUE: Exam Description: Stress/Rest one day protocol gated SPECT Rest Imagin.3 mCi Tc-99m Cardiolite IV on 08/05/2024 Stress Imaging 29.9 mCi Tc-99m Cardiolite IV on 08/05/2024 Exercise Protocol: 0.4 mg Lexiscan given IV Heart Rate (bpm): Rest: 57 Max: 77 PMHR: 50 Blood Pressure: Rest: 96/56 Max: 106/58 Symptoms: Rest and peak stress ECG findings were pending and the exercise portion of the study was pending per attending physician Dr. ROSE . For more details please see separate cardiac stress test report. FINDINGS: QUALITY OF STUDY: Good. PERFUSION DEFECT: None. LOCATION: N/A SIZE: N/A. SEVERITY: N/A. TYPE: N/A. WALL MOTION: Normal. LV SIZE: Enlarged; EDV 133 mL. TID / TCD: Yes; 1.2 LVEF: Normal. Calculated EF 76%. SUMMARY: Myocardial perfusion imaging study has ABNORMAL findings. CONCLUSION: 1. Dilated left ventricle with an end-diastolic volume of 133 milliliters 2. Borderline transient ischemic dilatation ratio 1.2 3. Pending exercise test results Dictated by: Chidi Vigil MD on 08/05/2024 at 15:33 Approved by: Chidi Vigil MD on 08/05/2024 at 15:34
--- NOTE | 2024-08-05 10:18 | PCN_ITS ---
CARDIAC STRESS TEST ? Requesting Physician:? Procedure Date:? 08/08/2024 ? INDICATION:? Chest pain, coronary artery disease, pre-op. ? METHODS:? After risks, benefits, and alternatives were explained, written informed consent was obtained.? The patient was brought to the stress lab in a resting and fasting state.? He was connected to the appropriate hemodynamic and electrocardiographic monitoring. ? He underwent a Lexiscan pharmacological stress test.? Nuclear imaging followed rest/stress protocol.? He was discharged to the nuclear lab in a stable state. ? STRESS TEST INFORMATION:? Lexiscan 0.4 mg was infused intravenously.? Resting heart rate was 57 beats per minute, with a maximum heart rate of 77 beats per minute.? Resting blood pressure was 96/58 with a minimum blood pressure of 86/50.? The patient had shortness of breath which resolved prior to leaving the stress lab. ? ELECTROCARDIOGRAPHY: Rest EKG:? This shows sinus rhythm, sinus bradycardia at 58 beats per minute and non-specific ST-T wave changes. During infusion and recovery:? No significant ST-T wave changes noted, no significant arrhythmias seen. ? FINAL IMPRESSIONS: 1.? No ischemic EKG changes seen on Lexiscan pharmacological stress test. 2.? No significant arrhythmias seen. 3.? Nuclear images are to read, interpreted and reported in a separate dictation. GLORIA
--- OUTSIDE RECORDS SUMMARY | 2024-08-05 10:35 | XMS_ITS | CCD ---
Author Organization [facility] CliniSymt Care Team Providers Care Electronic Warfare Linguist Name Role Phone UNKNOWN, PROVIDER Attending Unavailable DARI, DUSTY REVELES Primary Care Unavailabl e Unavailable Unavailable Dusty Rush Unavailable Unavailable Unavailable MD Osvaldo Almonte Attending Provider [phone] NON STAFF Primary Care Provider Unavailabl e [...] moxifloxacin; Translations: [Avelox TABS] Drug Allergy Swelling -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; Translations: [DIRECTOR MEDICAL SURGICAL CURRENT USE OF ASPIRIN] Onset: 05-28-2022 Episodic Other aftercare (1 source) assisted (current) use of oral hypoglycemic drugs; Translations: [DIRECTOR MEDICAL SURGICAL USE ORAL HYPOGLYCEMIC DX] Onset: 05-28-2022 Episodic Other injuries and conditions due to external causes (1 source) History of falling; Translations: [HISTORY OF FALLING] Onset: 05-28-2022 Episodic Syncope (4 sources) Syncope and collapse; Translations: [SYNCOPE AND COLLAPSE] Onset: 05-26-2022 Episodic Results Test Name Value Interpretation Reference Range Facility Hemoglobin A1Con 07-02-2024 Glucose [Mass/Vol] 131 mg/dL Normal [facility] Comment on above: Result Comment: The ADA and AACC recommend providing the estimated average glucose result to permit better patient understanding of their HBA1c result. Performed By: #### B MP, CDP, LIVP, TSH #### [address] [place], [place] [id number] Financial Reporting Analyst: Chidi Restrepo MD #### URNMAB, GLYHGB, LIPR, VD25, PSAS #### [address] [phone] Financial Reporting Analyst: Obey Thorpe MD HbA1c (Bld) [Mass fraction] 6.2 % High 4.0-6.0 [facility] Comment on above: Performed By: #### B MP, CDP, LIVP, TSH #### [address] [place] [id number] Financial Reporting Analyst: Chidi Restrepo MD #### URNMAB, GLYHGB, LIPR, VD25, PSAS #### [address] [id number] Financial Reporting Analyst: Obey Thorpe MD Lipid Profileon 07-02-2024 Cholesterol [Mass/Vol] 165 mg/dL Normal 0-199 [facility] Comment on above: Result Comment: Cholesterol Guidelines: <200 Desirable 200-240 Borderline >240 Undesirable Performed By: #### B MP, CDP, LIVP, TSH #### [address] [place] [phone] Financial Reporting Analyst: Chidi Restrepo MD #### URNMAB, GLYHGB, LIPR, VD25, PSAS #### [address] [id number] Financial Reporting Analyst: Obey Thorpe MD Cholesterol in HDL [Mass/Vol] 40 mg/dL Low >40 [facility] Comment on above: Result Comment: HDL Guidelines: <40 Undesirable 40-59 Borderline >59 Desirable Performed By: #### B MP, CDP, LIVP, TSH #### [facility] [address] [place] [address] [place] [place], [place] [id number] Financial Reporting Analyst: Chidi Restrepo MD #### URNMAB, GLYHGB, LIPR, VD25, PSAS #### [address] [place], [place] [phone] Financial Reporting Analyst: Obey Thorpe MD Cholesterol in LDL [Mass/Vol] 101 mg/dL High 0-100 [facility] Comment on above: Result Comment: LDL Guidelines: <100 Desirable 100-129 Near to/above Desirable 130-159 Borderline >159 Undesirable Direct (measured) LDL and calculated LDL are not interchangeable tests. Performed By: #### B MP, CDP, LIVP, TSH #### [address] [place], [place] [phone] Financial Reporting Analyst: Chidi Restrepo MD #### URNMAB, GLYHGB, LIPR, VD25, PSAS #### [address] [place], [place] [phone] Financial Reporting Analyst: Obey Thorpe MD Cholesterol in VLDL [Mass/Vol] 24 mg/dL Normal [facility] Comment on above: Performed By: #### B MP, CDP, LIVP, TSH #### [address] [place], [place] [phone] Financial Reporting Analyst: Chidi Restrepo MD #### URNMAB, GLYHGB, LIPR, VD25, PSAS #### [address] [place], [place] 0573508 Financial Reporting Analyst: Obey Thorpe MD Cholesterol.total/Ch olesterol in HDL [Mass ratio] 4.0 {ratio} Normal [facility] Comment on above: Performed By: #### B MP, CDP, LIVP, TSH #### [facility] [address] [place] [address] [address] [place], [place] [phone] Financial Reporting Analyst: Chidi Restrepo MD #### URNMAB, GLYHGB, LIPR, VD25, PSAS #### [address] [place], [place] [phone] Financial Reporting Analyst: Obey Thorpe MD Triglyceride [Mass/Vol] 118 mg/dL Normal <150 [facility] Comment on above: Result Comment: Triglyceride Guidelines: <150 Desirable 150-199 Borderline 200-499 High >499 Very high Based on AHA Guidelines for fasting triglyceride, August 2012. Performed By: #### B MP, CDP, LIVP, TSH #### [address] [place] [address] Financial Reporting Analyst: Chidi Restrepo MD #### URNMAB, GLYHGB, LIPR, VD25, PSAS #### [address] [place], [place] 1915108 Financial Reporting Analyst: Obey Thorpe MD Vitamin D 25 OHon 07-02-2024 Vitamin D 25 [place] 19.9 ng/mL Low 30.0-100.0 [facility] Comment on above: Result Comment: Reference Range: Vitamin D status Range Deficiency <20 ng/mL Mild Deficiency 20-30 ng/mL Sufficiency 30-100 ng/mL Toxicity >100 ng/mL Performed By: #### B MP, CDP, LIVP, TSH #### [address] [place] [address] Financial Reporting Analyst: Chidi Resterpo MD #### URNMAB, GLYHGB, LIPR, VD25, PSAS #### [facility] [address] [place], [place] [phone] Financial Reporting Analyst: Obey Thorpe MD Basic Metabolic Profon 07-01 Anion gap [Moles/Vol] 11 mmol/L Normal 08-02 [facility] Comment on above: Performed By: #### B MP, CDP, LIVP, TSH #### [facility] [address] [place] [address] [place] [address] Financial Reporting Analyst: Chidi Restrepo MD #### URNMAB, GLYHGB, LIPR, VD25, PSAS #### [address] [place] [address] Financial Reporting Analyst: Obey Thorpe MD BUN/CRE Ratio 22 High 9-20 [facility] Comment on above: Performed By: #### B MP, CDP, LIVP, TSH #### [address] [place], [place] 0400483 Financial Reporting Analyst: Chidi Restrepo MD #### URNMAB, GLYHGB, LIPR, VD25, PSAS #### [address] [address] Financial Reporting Analyst: Obey Thorpe MD Calcium [Mass/Vol] 9.0 mg/dL Normal 8.6-10.4 [facility] Comment on above: Performed By: #### B MP, CDP, LIVP, TSH #### [address] [place], [place] 9421283 Financial Reporting Analyst: Chidi Restrepo MD #### URNMAB, GLYHGB, LIPR, VD25, PSAS #### [address] [address] Financial Reporting Analyst: Obey Thorpe MD Chloride [Moles/Vol] 106 mmol/L Normal 98-107 [facility] Comment on above: Performed By: #### B MP, CDP, LIVP, TSH #### [address] [place], [place] 3032683 Financial Reporting Analyst: Chidi Restrepo MD #### URNMAB, GLYHGB, LIPR, VD25, PSAS #### [address] [address] Financial Reporting Analyst: Obey Thorpe MD CO2 [Moles/Vol] 22 mmol/L Normal 20-31 [facility] Comment on above: Performed By: #### B MP, CDP, LIVP, TSH #### [facility] [address] [place] [address] [place] [address] Financial Reporting Analyst: Chidi Restrepo MD #### URNM, GLYHGB, LIPR, VD25, PSAS #### [address] [place], [place] 7853508 Financial Reporting Analyst: Obey Thorpe MD Creatinine [Mass/Vol] 2.3 mg/dL High 0.7-1.2 [facility] Comment on above: Performed By: #### B MP, CDP, LIVP, TSH #### [address] [place] [address] Financial Reporting Analyst: Chidi Restrepo MD #### URNMAB, GLYHGB, LIPR, VD25, PSAS #### [address] [place] [address] Financial Reporting Analyst: Obey Thorpe MD GFR/1.73 sq M.predicted among non-blacks MDRD (S/P/Bld) [Vol rate/Area] 30 mL/min/{1.73_m2} Low >60 [facility] Comment on above: Result Comment: These results [...] #### B MP, CDP, LIVP, TSH #### [address] [place] [address] Financial Reporting Analyst: Chidi Restrepo MD #### URNMAB, GLYHGB, LIPR, VD25, PSAS #### [address] [place], [place] 6683508 Financial Reporting Analyst: Obey Thorpe MD Glucose [Mass/Vol] 133 mg/dL High 70-99 [facility] Comment on above: Performed By: #### B MP, CDP, LIVP, TSH #### [address] [place], [place] 3827983 Financial Reporting Analyst: Chidi Restrepo MD #### URNMAB, GLYHGB, LIPR, VD25, PSAS #### [address] [address] Financial Reporting Analyst: Obey Thorpe MD Potassium [Moles/Vol] 4.7 mmol/L Normal 3.7-5.3 [facility] Comment on above: Performed By: #### B MP, CDP, LIVP, TSH #### [address] [place], [place] 4110983 Financial Reporting Analyst: Chidi Restrepo MD #### URNMAB, GLYHGB, LIPR, VD25, PSAS #### [address] [address] Financial Reporting Analyst: Obey Thorpe MD Sodium [Moles/Vol] 139 mmol/L Normal 135-144 [facility] Comment on above: Performed By: #### B MP, CDP, LIVP, TSH #### [address] [place], [place] 4681583 Financial Reporting Analyst: Chidi Restrepo MD #### URNMAB, GLYHGB, LIPR, VD25, PSAS #### [address] [address] Financial Reporting Analyst: Obey Thorpe MD Urea nitrogen [Mass/Vol] 50 mg/dL High 8-23 [facility] Comment on above: Performed By: #### B MP, CDP, LIVP, TSH #### [address] [place], [place] [phone] Financial Reporting Analyst: Chidi Restrepo MD #### URNMAB, GLYHGB, LIPR, VD25, PSAS #### [address] [address] Financial Reporting Analyst: Obey Thorpe MD CBC with Diffon 07-01-2024 Abs. Basophil 0.06 k/uL Normal 0.00-0.20 [facility] Comment on above: Performed By: #### B MP, CDP, LIVP, TSH #### [address] [place] [address] Financial Reporting Analyst: Chidi Restrepo MD #### URNMAB, GLYHGB, LIPR, VD25, PSAS #### [place] [address] Financial Reporting Analyst: Obey Thorpe MD Abs.Imm.Granulocyte 0.05 k/uL Normal 0.00-0.30 [facility] Comment on above: Performed By: #### B MP, CDP, LIVP, TSH #### [address] [place] [phone] Financial Reporting Analyst: Chidi Restrepo MD #### URNMAB, GLYHGB, LIPR, VD25, PSAS #### [place] [address] Financial Reporting Analyst: Obey Thorpe MD Abs.Neutrophil (Seg) 5.18 k/uL Normal 1.50-8.10 [facility] Comment on above: Performed By: #### B MP, CDP, LIVP, TSH #### [address] [place] [address] Financial Reporting Analyst: Chidi Restrepo MD #### URNMAB, GLYHGB, LIPR, VD25, PSAS #### [place] [address] Financial Reporting Analyst: Obey Thorpe MD Basophils/100 WBC (Bld) 1 % Normal 0-2 [facility] Comment on above: Performed By: #### B MP, CDP, LIVP, TSH #### [address] [place] [address] Financial Reporting Analyst: Chidi Restrepo MD #### URNMAB, GLYHGB, LIPR, VD25, PSAS #### [address] [phone] Financial Reporting Analyst: Obey Thorpe MD Eosinophils (Bld) [#/Vol] 0.21 10*3/uL Normal 0.00-0.44 [facility] Comment on above: Performed By: #### B MP, CDP, LIVP, TSH #### [facility] [address] [place] [address] [address] [place] [address] Financial Reporting Analyst: Chidi Restrepo MD #### URNMAB, GLYHGB, LIPR, VD25, PSAS #### [place] [address] Financial Reporting Analyst: Obey Thorpe MD Eosinophils/100 WBC (Bld) 3 % Normal 1-4 [facility] Comment on above: Performed By: #### B MP, CDP, LIVP, TSH #### [address] [place] [address] Financial Reporting Analyst: Chidi Restrepo MD #### URNMAB, GLYHGB, LIPR, VD25, PSAS #### [place] [phone] Financial Reporting Analyst: Obey Thorpe MD Erythrocyte distribution width (RBC) [Ratio] 14.7 % High 11.8-14.4 [facility] Comment on above: Performed By: #### B MP, CDP, LIVP, TSH #### [address] [place] [address]1983 Financial Reporting Analyst: Chidi Restrepo MD #### URNMAB, GLYHGB, LIPR, VD25, PSAS #### [address] [phone] Financial Reporting Analyst: Obey Thorpe MD Hematocrit (Bld) [Volume fraction] 37.8 % Low 40.7-50.3 [facility] Comment on above: Performed By: #### B MP, CDP, LIVP, TSH #### [address] [place] [address]1983 Financial Reporting Analyst: Chidi Restrepo MD #### URNMAB, GLYHGB, LIPR, VD25, PSAS #### [address] [phone] Financial Reporting Analyst: Obey Thorpe MD Hemoglobin (Bld) [Mass/Vol] 12.3 g/dL Low 13.0-17.0 [facility] Comment on above: Performed By: #### B MP, CDP, LIVP, TSH #### [address] [place] [address]1983 Financial Reporting Analyst: Chidi Restrepo MD #### URNMAB, GLYHGB, LIPR, VD25, PSAS #### [place] [phone] Financial Reporting Analyst: Obey Thorpe MD Immature granulocytes/100 WBC (Bld) 1 % High 0 [facility] Comment on above: Performed By: #### B MP, CDP, LIVP, TSH #### [address] [place] [address]1983 Financial Reporting Analyst: Chidi Restrepo MD #### URNMAB, GLYHGB, LIPR, VD25, PSAS #### [address] [phone] Financial Reporting Analyst: Obey Thorpe MD Lymphocytes (Bld) [#/Vol] 1.57 10*3/uL Normal 1.10-3.70 [facility] Comment on above: Performed By: #### B MP, CDP, LIVP, TSH #### [address] [place] [address]1983 Financial Reporting Analyst: Chidi Restrepo MD #### URNMAB, GLYHGB, LIPR, VD25, PSAS #### [address] [place], [place] 1484808 Financial Reporting Analyst: Obey Thorpe MD Lymphocytes/100 WBC (Bld) 20 % Low 24-43 [facility] Comment on above: Performed By: #### B MP, CDP, LIVP, TSH #### [address] [place] [address]1983 Financial Reporting Analyst: Chidi Restrepo MD #### URNMAB, GLYHGB, LIPR, VD25, PSAS #### [address] [place], [place] 5100808 Financial Reporting Analyst: Obey Thorpe MD MCH (RBC) [Entitic mass] 29.9 pg Normal 25.2-33.5 [facility] Comment on above: Performed By: #### B MP, CDP, LIVP, TSH #### [address] [place] [address] Financial Reporting Analyst: Chidi Restrepo MD #### URNMAB, GLYHGB, LIPR, VD25, PSAS #### [address] [place], [place] 8023108 Financial Reporting Analyst: Obey Thorpe MD MCHC (RBC) [Mass/Vol] 32.5 g/dL Normal 28.4-34.8 [facility] Comment on above: Performed By: #### B MP, CDP, LIVP, TSH #### [address] [place] [address] Financial Reporting Analyst: Chidi Restrepo MD #### URNMAB, GLYHGB, LIPR, VD25, PSAS #### [address] [place], [place] 2920208 Financial Reporting Analyst: Obey Thorpe MD MCV (RBC) [Entitic vol] 92.0 fL Normal 82.6-102.9 [facility] Comment on above: Performed By: #### B MP, CDP, LIVP, TSH #### [address] [place], [place] 7662683 Financial Reporting Analyst: Chidi Restrepo MD #### URNMAB, GLYHGB, LIPR, VD25, PSAS #### [address] [phone] Financial Reporting Analyst: Obey Thorpe MD Monocytes (Bld) [#/Vol] 0.64 10*3/uL Normal 0.10-1.20 [facility] Comment on above: Performed By: #### B MP, CDP, LIVP, TSH #### [address] [place], [place] 2903783 Financial Reporting Analyst: Chidi Restrepo MD #### URNMAB, GLYHGB, LIPR, VD25, PSAS #### [address] [phone] Financial Reporting Analyst: Obey Thorpe MD Monocytes/100 WBC (Bld) 8 % Normal 3-12 [facility] Comment on above: Performed By: #### B MP, CDP, LIVP, TSH #### [address] [place], [place] 8209183 Financial Reporting Analyst: Chidi Restrepo MD #### URNMAB, GLYHGB, LIPR, VD25, PSAS #### [address] 1862[address] Financial Reporting Analyst: Obey Thorpe MD Neutrophil (Seg) 67 % High 36-65 [facility] Comment on above: Performed By: #### B MP, CDP, LIVP, TSH #### [address] [place], [place] 4005383 Financial Reporting Analyst: Chidi Restrepo MD #### URNMAB, GLYHGB, LIPR, VD25, PSAS #### [address] [phone] Financial Reporting Analyst: Obey Thorpe MD NRBC Automated 0.0 per 100 WBC Normal 0.0 [facility] Comment on above: Performed By: #### B MP, CDP, LIVP, TSH #### [address] [place] [address] Financial Reporting Analyst: Chidi Restrepo MD #### URNMAB, GLYHGB, LIPR, VD25, PSAS #### [address] [phone] Financial Reporting Analyst: Obey Thorpe MD Platelet mean volume (Bld) [Entitic vol] 10.6 fL Normal 8.1-13.5 [facility] Comment on above: Performed By: #### B MP, CDP, LIVP, TSH #### [address] [place] [address]1983 Financial Reporting Analyst: Chidi Restrepo MD #### URNMAB, GLYHGB, LIPR, VD25, PSAS #### [address] [address] Financial Reporting Analyst: Obey Thorpe MD Platelets (Bld) [#/Vol] 210 10*3/uL Normal 138-453 [facility] Comment on above: Performed By: #### B MP, CDP, LIVP, TSH #### [address] [place] [address] Financial Reporting Analyst: Chidi Restrepo MD #### URNMAB, GLYHGB, LIPR, VD25, PSAS #### [address] [address] Financial Reporting Analyst: Obey Thorpe MD RBC (Bld) [#/Vol] 4.11 10*6/uL Low 4.21-5.77 [facility] Comment on above: Performed By: #### B MP, CDP, LIVP, TSH #### [address] [place], [place] 5982083 Financial Reporting Analyst: Chidi Restrepo MD #### URNMAB, GLYHGB, LIPR, VD25, PSAS #### [address] [phone] Financial Reporting Analyst: Obey Thorpe MD WBC (Bld) [#/Vol] 7.7 10*3/uL Normal 3.5-11.3 [facility] Comment on above: Performed By: #### B MP, CDP, LIVP, TSH #### [address] [place] [address] Financial Reporting Analyst: Chidi Restrepo MD #### URNMAB, GLYHGB, LIPR, VD25, PSAS #### [address] [id number] Financial Reporting Analyst: Obey Thorpe MD Liver Profileon 07-01-2024 Albumin [Mass/Vol] 4.5 g/dL Normal 3.5-5.2 [facility] Comment on above: Performed By: #### B MP, CDP, LIVP, TSH #### [address] [place] [address] Financial Reporting Analyst: Chidi Restrepo MD #### URNMAB, GLYHGB, LIPR, VD25, PSAS #### [address] [phone] Financial Reporting Analyst: Obey Thorpe MD Albumin/Glob Ratio 1.7 Normal 1.0-2.5 [facility] Comment on above: Performed By: #### B MP, CDP, LIVP, TSH #### [address] [place] [address] Financial Reporting Analyst: Chidi Restrepo MD #### URNMAB, GLYHGB, LIPR, VD25, PSAS #### [address] [place] [address] Financial Reporting Analyst: Obey Thorpe MD Alkaline Phos 36 U/L Low 40-129 [facility] Comment on above: Performed By: #### B MP, CDP, LIVP, TSH #### [facility] [address] [place] [address] [place]. [place], [place] [phone] Financial Reporting Analyst: Chidi Restrepo MD #### URNMAB, GLYHGB, LIPR, VD25, PSAS #### [address] [address] Financial Reporting Analyst: Obey Thorpe MD ALT [Catalytic activity/Vol] 17 U/L Normal 5-41 [facility] Comment on above: Performed By: #### B MP, CDP, LIVP, TSH #### [address] [place], [place] 1970383 Financial Reporting Analyst: Chidi Restrepo MD #### URNMAB, GLYHGB, LIPR, VD25, PSAS #### [address] [address] Financial Reporting Analyst: Obey Thorpe MD AST [Catalytic activity/Vol] 23 U/L Normal <40 [facility] Comment on above: Performed By: #### B MP, CDP, LIVP, TSH #### [address] [place], [place] [phone] Financial Reporting Analyst: Chidi Restrepo MD #### URNMAB, GLYHGB, LIPR, VD25, PSAS #### [address] [address] Financial Reporting Analyst: Obey Thorpe MD Bilirubin [Mass/Vol] 0.4 mg/dL Normal 0.3-1.2 [facility] Comment on above: Performed By: #### B MP, CDP, LIVP, TSH #### [facility] [address] [place] [address] [place] [place], [place] 5576483 Financial Reporting Analyst: Chidi Restrepo MD #### URNMAB, GLYHGB, LIPR, VD25, PSAS #### [address] [phone] Financial Reporting Analyst: Obey Thorpe MD Bilirubin, Indirect Can not be calculated Normal 0.0-1.0 [facility] Comment on above: Performed By: #### B MP, CDP, LIVP, TSH #### [address] [place], [place] 5488983 Financial Reporting Analyst: Chidi Restrepo MD #### URNMAB, GLYHGB, LIPR, VD25, PSAS #### [address] [phone] Financial Reporting Analyst: Obey Thorpe MD Bilirubin.indirect [Mass/Vol] mg/dL Normal <0.3 [facility] Comment on above: Performed By: #### B MP, CDP, LIVP, TSH #### [address] [place], [place] 7240683 Financial Reporting Analyst: Chidi Restrepo MD #### URNMAB, GLYHGB, LIPR, VD25, PSAS #### [address] [id number] Financial Reporting Analyst: Obey Thorpe MD Protein [Mass/Vol] 7.1 g/dL Normal 6.4-8.3 [facility] Comment on above: Performed By: #### B MP, CDP, LIVP, TSH #### [address] [place], [place] 6193183 Financial Reporting Analyst: Chidi Restrepo MD #### URNMAB, GLYHGB, LIPR, VD25, PSAS #### [address] [id number] Financial Reporting Analyst: Obey Thorpe MD Microalb.,Random Uron 2023 Creatinine [Mass/Vol] 58.5 mg/dL Normal 39.0-259.0 [facility] Comment on above: Performed By: #### B MP, CDP, LIVP, TSH #### [address] [place], [place] 1393083 Financial Reporting Analyst: Chdii Restrepo MD #### URNMAB, GLYHGB, LIPR, VD25, PSAS #### [address] [phone] Financial Reporting Analyst: Obey Thorpe MD Microalb/Creat Ratio Can not be calculated Normal 0.0-17.0 [facility] Comment on above: Performed By: #### B MP, CDP, LIVP, TSH #### [address] [place] [address]1983 Financial Reporting Analyst: Chidi Restrepo MD #### URNMAB, GLYHGB, LIPR, VD25, PSAS #### [address] [phone] Financial Reporting Analyst: Obey Thorpe MD Microalbumin conc. <12 Normal 0-20 [facility] Comment on above: Performed By: #### B MP, CDP, LIVP, TSH #### [address] [place] 2921983 Financial Reporting Analyst: Chidi Restrepo MD #### URNMAB, GLYHGB, LIPR, VD25, PSAS #### [address] [place], [place] [phone] Financial Reporting Analyst: Obey Thorpe MD PSA, Screeningon 07-01-2024 Prostatic Spec. Ag 4.30 ng/mL High 0.00-4.00 [facility] Comment on above: Result Comment: The Tony ECLIA assay is used. Results obtained with different assay methods cannot be used interchangeably. Performed By: #### B MP, CDP, LIVP, TSH #### [address] [place] [address] Financial Reporting Analyst: Chidi Restrepo MD #### URNMAB, GLYHGB, LIPR, VD25, PSAS #### [address] [place] [address] Financial Reporting Analyst: Obey Thorpe MD Thyroid Stim. Horm.on 2023 Thyroid Stim. Horm. 1.26 uIU/mL Normal 0.30-5.00 [facility] Comment on above: Performed By: #### B MP, CDP, LIVP, TSH #### [facility] [address] [place] [address] Financial Reporting Analyst: Chidi Restrepo MD #### JEAN, GLYHGB, LIPR, VD25, PSAS #### [facility] [employer] [address] [place] [address] Financial Reporting Analyst: Obey Thorpe MD Office Visit (Cardiology)on 07-29-2023 [...] Weight Tips; Status:Complete - Retrospective Authorization; Done: [id number] Some eating tips that can help you lose weight.; Status:Complete - Retrospective Authorization; Done: [id number] Hyperlipidemia Start: Rosuvastatin Calcium 20 MG Oral Tablet; TAKE 1 TABLET DAILY SocHx: Former smoker Tobacco Use Screening; Status:Complete; Done: [id number] Patient Instructions Please bring all medicines, vitamins, [...] negative for complaint. Vitals Vital Signs Recorded: [id number] 11:20AM Heart Rate66, R Radial Yizqxpjn524, RUE, Sitting Csxufzpbr76, RUE, Sitting Height5 ft 11 in Dhrdhs592 lb BMI Xjkytnoukf29.92 kg/m2 BSA Calculated2.26 Tobacco Useb) No PHQ-2 [...] Jul 29 2023 1:05PM EST (Author) [employer] Tobacco Screening.on 023 Adult depression screening assessment No [facility] 250 DO Work Phone: Fall risk assessment b) One or more fall s in the last year [facility] 250 DO Work Phone: Tobacco use status CPHS b) No [facility] 250 DO Work Phone: XR elbow LT 2Von 03-13-2023 XR elbow LT 2V [facility] [address] [place] [address] XRay Report Signed Patient: Amos Castañeda MR#: [id number] 4 : 1955 Acct:[id number] Age/Sex: 67 / M ADM Date: 01/26/23 Loc: [facility] Room: Type: [facility] Attending Dr: Linden Garnica DO Copies to: [...] Wilkes Jr., D.OPreston01/26/2023 3:18 PM Dictation Location: [place] [address] Transcribed By: [facility] 01/26/23 1518 Dictated By: Lane Wilkes Jr, DO 01/26/23 1518 Signed By: 01/26/23 1518 [facility] XR elbow LT 2V [facility] Other XR elbow LT 2V [facility] Other XR elbow LT [address]V [address] [place] [address] [employer] Other XR elbow [place] [address] [address] No rt [facility] Other XR elbow LT 2V XRay Report [employer] Other XR elbow LT 2V Signed [facility] Other XR elbow LT 2V Patient: Amos Castañeda MR#: [id number] [facility] Other XR elbow LT 2V 4 [facility] Other XR elbow LT 2V : 1955 Acct:[id number] [employer] Other XR elbow LT 2V Age/Sex: 67 / M ADM Date: 01/26/23 [employer] Other XR elbow LT 2V Loc: [facility] Room: Type: [facility] [employer] Other XR elbow LT 2V Attending Dr: Linden Garnica DO [employer] Other XR elbow LT 2V Copies to: Linden Garnica DO [employer] Other XR elbow LT 2V Ordering Provider: Linden Garnica DO [employer] Other XR elbow LT 2V Date of Service: 01/26/23 [employer] Other XR elbow LT 2V XR/XR elbow LT 2V: Left elbow pain [employer] Other XR elbow LT 2V LEFT ELBOW - 2 views [employer] Other XR elbow LT 2V CLINICAL HISTORY: Left elbow pain for 2 weeks after fall. [employer] Other XR elbow LT 2V COMPARISON: None [facility] Other XR elbow LT 2V FINDINGS: [facility] Other XR elbow LT 2V There is soft tissue evidence of olecranon bursitis. No acute bony process is seen. [employer] Other XR elbow LT 2V XR/XR elbow LT 2V [employer] Other XR elbow LT 2V IMPRESSION: [employer] Other XR elbow LT 2V EVIDENCE OF OLECRANON BURSITIS. NO ACUTE BONY PROCESS IS SEEN. [employer] Other XR elbow LT 2V Impression dictated by: Lane Wilkes Jr. DPrestonOPreston01/26/2023 3:18 PM [employer] Other XR elbow LT 2V Dictation Location: [place] [address] [employer] Other XR elbow LT 2V Transcribed By: PWS 01/26/23 [facility]7 [employer] Other XR elbow LT 2V Dictated By: Lane Wilkes Jr, DO 01/26/23 7194 [employer] Other XR elbow LT 2V Signed By: [facility] Other XR elbow LT 2V 01/26/23 3414 [employer] Other GLYCOHEMOGLOBIN A1Con 2022 ADA RECOMMENDATION SEE BELOW Normal [facility] Comment on above: Result Comment: ADA RECOMMENDED LIMIT 4.0 - 6.0 ADA THERAPEUTIC TARGET < 7.0 ACTION SUGGESTED > 7.0 Performed By: #### C VDTBH #### [facility] [address] [place] [address] [address] Lior Buckley Glucose [Mass/Vol] 137 mg/dL Normal [facility] Comment on above: Performed By: #### C VDTBH #### [facility] [address] [place] [address] [address] Lior Buckley HbA1c (Bld) [Mass fraction] 6.4 % Critically high 4.5-6.2 [facility] Comment on above: Performed By: #### C VDTBH #### [facility] [address] [place] [address] [address] Lior Buckley XR pre/post mri xrayon 09-15 XR pre/post mri xray [facility] [place] [address] MRI Report Signed Patient: Amos Castañeda MR#: [id number] 4 : 1955 Acct:[id number] Age/Sex: 66 / M ADM Date: 09/15/22 [facility] Room: Type: [facility] CLI Attending Dr: Osvaldo Almonte MD Copies to: Osvaldo Almonte MD Ordering Provider: Osvaldo Almonte MD Date of Service: 09/15/22 MR/MR lumbar spine wo con: LUMBAR STENOSIS ([id number]) XR/XR pre/post mri xray: LUMBAR STENOSIS MR [...] Blake Storey M.D.09/15/2022 4:05 PM Dictation Location: [place] [address] Transcribed By: [facility] 09/15/22 160 Dictated By: Blake Storey II, MD 09/15/22 1555 Signed By: 09/15/22 1605 [facility] CBC AUTO DIFFon 05-28-2022 BASO # 0.1 103/ul Normal 0.0-0.1 [facility] Comment on above: Performed By: #### C BC #### [facility] [address] [place] [address] [address] Lior Buckley Basophils/100 WBC (Bld) 0.6 % Normal 0.2-2.0 [facility] Comment on above: Performed By: #### C BC #### [facility] [address] [place] [address] [address] Lior Buckley EO # 0.2 103/ul Normal 0.0-0.7 [facility] Comment on above: Performed By: #### C BC #### [facility] [address] [place] [address] [address] Lior Buckley Eosinophils/100 WBC (Bld) 2.1 % Normal 0.9-7.0 [facility] Comment on above: Performed By: #### C BC #### [facility] [address] [place] [address] Dr. Lior Buckley Erythrocyte distribution width (RBC) [Ratio] 15.6 % Critically high 11.0-15.0 [facility] Comment on above: Performed By: #### C BC #### [facility] [address] [place] [address] Dr. Lior Buckley Hematocrit (Bld) [Volume fraction] 42.6 % Normal 42.0-54.0 [facility] Comment on above: Performed By: #### C BC #### [facility] [address] [place] [address] Dr. Lior Buckley Hemoglobin (Bld) [Mass/Vol] 13.5 g/dL Critically low 14.0-18.0 [facility] Comment on above: Performed By: #### C BC #### [facility] [address] [place] [address] Dr. Lior Buckley IG # 0.04 10e3/ul Critically high 0.00-0.03 [facility] Comment on above: Performed By: #### C BC #### [facility] [address] [place] [address] Dr. Lior Buckley IG % 0.5 % Normal 0.0-0.5 [facility] Comment on above: Performed By: #### C BC #### [facility] [address] [place] [address] Dr. Lior Buckley LYMPH # 1.8 103/ul Normal 1.2-3.8 [facility] Comment on above: Performed By: #### C BC #### [facility] [address] [place] [address] Dr. Lior Buckley Lymphocytes/100 WBC (Bld) 21.2 % Normal 20.5-60.0 [facility] Comment on above: Performed By: #### C BC #### [facility] [address] [place] [address] Dr. Lior Buckley MANUAL DIFF REQ NO Normal [facility] Comment on above: Performed By: #### C BC #### [facility] [address] [place] [address] Dr. Lior Buckley MCH (RBC) [Entitic mass] 28.4 pg Normal 25.9-34.0 [facility] Comment on above: Performed By: #### C BC #### [facility] [address] [place] [address] Dr. Lior Buckley MCHC (RBC) [Mass/Vol] 31.7 g/dL Normal 29.9-35.2 [facility] Comment on above: Performed By: #### C BC #### [facility] [address] [place] [address] Dr. Lior Buckley MCV (RBC) [Entitic vol] 89.5 fL Normal 80.0-94.0 [facility] Comment on above: Performed By: #### C BC #### [facility] [address] [place] [address] Dr. Lior Buckley MONO # 0.8 103/ul Normal 0.3-0.8 [facility] Comment on above: Performed By: #### C BC #### [facility] [address] [place] [address] Dr. Lior Buckley Monocytes/100 WBC (Bld) 9.9 % Normal 1.7-12.0 [facility] Comment on above: Performed By: #### C BC #### [facility] [address] [place] [address] Dr. Lior Buckley NEUT # 5.4 103/ul Normal 1.4-6.5 [facility] Comment on above: Performed By: #### C BC #### [facility] [address] [place] [address] Dr. Lior Buckley Neutrophils/100 WBC (Bld) 65.7 % Normal 43.0-75.0 [facility] Comment on above: Performed By: #### C BC #### [facility] [address] [place] [address] Dr. Lior Bucklye Platelet mean volume (Bld) [Entitic vol] 10.0 fL Normal 9.5-13.5 [facility] Comment on above: Performed By: #### C BC #### [facility] [address] [place] [address] [address] Lior Buckley PLT 213 103/ul Normal 150-450 [facility] Comment on above: Performed By: #### C BC #### [facility] [address] [address] [address] Lior Buckley RBC 4.76 106/ul Normal 4.70-6.10 [facility] Comment on above: Performed By: #### C BC #### [facility] [address] [place] [address] [address] Lior Buckley WBC 8.3 103/ul Normal 4.0-11.0 [facility] Comment on above: Performed By: #### C BC #### [facility] [address] [place] [address] Dr. Lior Buckley GLYCOHEMOGLOBIN A1Con 2021 ADA RECOMMENDATION SEE BELOW Normal [facility] Comment on above: Result Comment: ADA RECOMMENDED LIMIT 4.0 - 6.0 ADA THERAPEUTIC TARGET < 7.0 ACTION SUGGESTED > 7.0 Performed By: #### C VDTBH #### [facility] [address] [place] [address] Dr. Lior Buckley Glucose [Mass/Vol] 189 mg/dL Normal [facility] Comment on above: Performed By: #### C VDTBH #### [facility] [address] [place] [address] Dr. Lior Buckley HbA1c (Bld) [Mass fraction] 8.2 % Critically high 4.5-6.2 [facility] Comment on above: Performed By: #### C VDTBH #### [facility] [address] [place] [address] Dr. Lior Bcukley LIPID PROFILEon 05-28-2022 CHOL-HDL RATIO NORM SEE BELOW Normal [facility] Comment on above: Result Comment: 3.3 - 4.4 LOW RISK 4.4 - 7.1 AVERAGE RISK 7.1 - 11.0 MODERATE RISK >11.0 HIGH RISK Performed By: #### T SH, LIPID, BMP, LIVER #### [facility] [address] [address] [address] Lior Buckley Cholesterol [Mass/Vol] 178 mg/dL Normal <=200 [facility] Comment on above: Performed By: #### T SH, LIPID, BMP, LIVER #### [facility] [address] [address] [address] Lior Buckley Cholesterol in HDL [Mass/Vol] 36 mg/dL Critically low 40-60 [facility] Comment on above: Performed By: #### T SH, LIPID, BMP, LIVER #### [facility] [address] [place] [address] [address] Lior Buckley Cholesterol in LDL [Mass/Vol] 116.2 mg/dL Normal [facility] Comment on above: Performed By: #### T SH, LIPID, BMP, LIVER #### [facility] [address] [place] [address] [address] Lior Buckley Cholesterol.total/Ch olesterol in HDL [Mass ratio] 4.9 {ratio} Normal [facility] Comment on above: Performed By: #### T SH, LIPID, BMP, LIVER #### [facility] [address] [address] [address] Lior Buckley HDL NORMAL > or = 60 mg/dl - LOW CARDIOVASCULAR RISK <40 mg/dl - HIGH CARDIOVASCULAR RISK Normal [facility] Comment on above: Performed By: #### T SH, LIPID, BMP, LIVER #### [facility] [address] [address] [address] Lior Buckley LDL CALC NORMAL SEE BELOW Normal [facility] Comment on above: Result Comment: <100 mg/dl OPTIMAL 100 - 129 mg/dl NEAR OR ABOVE OPTIMAL 130 - 159 mg/dl BORDERLINE HIGH 160 - 189 mg/dl HIGH >190 mg/dl VERY HIGH Performed By: #### T SH, LIPID, BMP, LIVER #### [facility] [address] [address] [address] Lior Buckley Triglyceride [Mass/Vol] 129 mg/dL Normal <=150 [facility] Comment on above: Performed By: #### T SH, LIPID, BMP, LIVER #### [facility] [address] [address] [address] Lior Buckley VLDL CALC 25.8 mg/dL Normal [facility] Comment on above: Performed By: #### T SH, LIPID, BMP, LIVER #### [facility] [address] [address] [address] Lior Buckley LIVER PROFILEon 05-28-2022 Albumin [Mass/Vol] 4.2 g/dL Normal 3.4-5.0 [facility] Comment on above: Performed By: #### T SH, LIPID, BMP, LIVER #### [facility] [address] [place] [address] Dr. Lior Buckley Albumin/Globulin [Mass ratio] 1.2 {ratio} Normal [facility] Comment on above: Performed By: #### T SH, LIPID, BMP, LIVER #### [facility] [address] [place] [address] Dr. Lior Buckley ALP [Catalytic activity/Vol] 43 U/L Critically low 46-116 [facility] Comment on above: Performed By: #### T SH, LIPID, BMP, LIVER #### [facility] [address] [place] [address] Dr. Lior Buckley ALT [Catalytic activity/Vol] 30 U/L Normal 16-63 [facility] Comment on above: Performed By: #### T SH, LIPID, BMP, LIVER #### [facility] [address] [place] [address] Dr. Lior Buckley AST [Catalytic activity/Vol] 18 U/L Normal 15-37 [facility] Comment on above: Performed By: #### T SH, LIPID, BMP, LIVER #### [facility] [address] [place] [address] Dr. Lior Buckley BILI, CONJUGATED 0.1 mg/dL Normal 0.0-0.2 [facility] Comment on above: Performed By: #### T SH, LIPID, BMP, LIVER #### [facility] [address] [place] [address] Dr. Lior Buckley Bilirubin [Mass/Vol] 0.6 mg/dL Normal 0.2-1.0 [facility] Comment on above: Performed By: #### T SH, LIPID, BMP, LIVER #### [facility] [address] [address] [address] Lior Buckley Globulin (S) [Mass/Vol] 3.4 g/dL Normal [facility] Comment on above: Performed By: #### T SH, LIPID, BMP, LIVER #### [facility] [address] [address] [address] Lior Buckley Protein [Mass/Vol] 7.6 g/dL Normal 6.4-8.2 [facility] Comment on above: Performed By: #### T SH, LIPID, BMP, LIVER #### [facility] [address] [place] [address] Dr. Lior Buckley MICROALBUMIN, RAND URon 07- mALB <1.3 Normal <=30.0 [facility] Comment on above: Performed By: #### C VDTBH #### [facility] [address] [place] [address] Dr. Lior Buckley PROF CHEM 8 (BAS METB)on Anion gap [Moles/Vol] 14.3 mmol/L Normal [facility] Comment on above: Performed By: #### T SH, LIPID, BMP, LIVER #### [facility] [address] [place] [address] Dr. Lior Buckley Calcium [Mass/Vol] 9.5 mg/dL Normal 8.5-10.1 [facility] Comment on above: Performed By: #### T SH, LIPID, BMP, LIVER #### [facility] [address] [place] [address] Dr. Lior Buckley Chloride [Moles/Vol] 103 mmol/L Normal 98-107 [facility] Comment on above: Performed By: #### T SH, LIPID, BMP, LIVER #### [facility] [address] [place] [address] Dr. Lior Buckley CO2 [Moles/Vol] 26.0 mmol/L Normal 21.0-32.0 [facility] Comment on above: Performed By: #### T SH, LIPID, BMP, LIVER #### [facility] [address] [place] [address] Dr. Lior Buckley Creatinine [Mass/Vol] 2.22 mg/dL Critically high 0.70-1.30 [facility] Comment on above: Performed By: #### T SH, LIPID, BMP, LIVER #### [facility] [address] [place] [address] Dr. Lior Buckley EGFR-AF PAKISTANI 36 mL/min/1.73m2 Critically low >=60 [facility] Comment on above: Performed By: #### T SH, LIPID, BMP, LIVER #### [facility] [address] [place] [address] Dr. Lior Buckley EGFR-NON AF PAKISTANI 30 mL/min/1.73m2 Critically low >=60 [facility] Comment on above: Performed By: #### T SH, LIPID, BMP, LIVER #### [facility] [address] [place] [address] Dr. Lior Buckley Glucose [Mass/Vol] 142 mg/dL Critically high 74-106 [facility] Comment on above: Performed By: #### T SH, LIPID, BMP, LIVER #### [facility] [address] [place] [address] Dr. Lior Buckley Potassium [Moles/Vol] 4.3 mmol/L Normal 3.5-5.1 [facility] Comment on above: Performed By: #### T SH, LIPID, BMP, LIVER #### [facility] [address] [place] [address] Dr. Lior Buckley Sodium [Moles/Vol] 139 mmol/L Normal 136-145 [facility] Comment on above: Performed By: #### T SH, LIPID, BMP, LIVER #### [facility] [address] [place] [address] Dr. Lior Buckley Urea nitrogen [Mass/Vol] 48.0 mg/dL Critically high 7.0-18.0 [facility] Comment on above: Performed By: #### T SH, LIPID, BMP, LIVER #### [facility] [address] [place] [address] Dr. Lior Buckley Urea nitrogen/Creatinine [Mass ratio] 21.6 mg/mg Normal [facility] Comment on above: Performed By: #### T SH, LIPID, BMP, LIVER #### [facility] [address] [place] [address] Dr. Lior Buckley TSHon 05-28-2022 TSH 1.854 uIU/mL Normal 0.358-3.740 [facility] Comment on above: Performed By: #### T SH, LIPID, BMP, LIVER #### [facility] [address] [place] [address] Dr. Lior Buckley VITAMIN D 25 OHon 05-28-2022 VIT D 25-OH 28.3 ng/mL Normal [facility] Comment on above: Performed By: #### V MARGARITA, PSASC #### [facility] [address] [place] [address] Dr. Lior Buckley VIT D RANGES SEE BELOW Normal [facility] Comment on above: Result Comment: <20 ng/mL Vit D deficient 20 - <30 ng/mL Vit D insufficient 30 - 100 ng/mL Vit D sufficient >100 ng/mL Potential Toxicity Performed By: #### V MARGARITA, PSASC #### [facility] [address] [place] [address] Dr. Lior Buckley TROPONIN, HIGH SENSITIVITYon 05-27-2022 HSTROP 8.8 pg/mL Normal 4.0-76.1 [facility] Comment on above: Result Comment: CUT- OFF POINTS HAVE BEEN ESTABLISHED BASED ON THE FOURTH UNIVERSAL DEFINITIONS OF MYOCARDIAL INFARCTION. THE UPPER REFERENCE LIMIT (URL) OF TROPONIN, DEFINED THE 99TH PERCENTILE OF cTnI DISTRIBUTION IN A REFERENCE POPULATION, HAS BEEN CONFIRMED THE DECISION THRESHOLD FOR PA DIAGNOSIS. Performed By: #### T SH, LIPID, BMP, LIVER #### [facility] [address] [place] [address] Dr. Lior Buckley CBC AUTO DIFFon 05-26-2022 BASO # 0.0 103/ul Normal 0.0-0.1 [facility] Comment on above: Performed By: #### C VDTBH #### [facility] [address] [place] [address] Dr. Lior Buckley Basophils/100 WBC (Bld) 0.4 % Normal 0.2-2.0 [facility] Comment on above: Performed By: #### C VDTBH #### [facility] [address] [place] [address] Dr. Lior Buckley EO # 0.2 103/ul Normal 0.0-0.7 [facility] Comment on above: Performed By: #### C VDTBH #### [facility] [address] [place] [address] Dr. Lior Buckley Eosinophils/100 WBC (Bld) 2.3 % Normal 0.9-7.0 [facility] Comment on above: Performed By: #### C VDTBH #### [facility] [address] [place] [address] Dr. Lior Buckley Erythrocyte distribution width (RBC) [Ratio] 15.5 % Critically high 11.0-15.0 [facility] Comment on above: Performed By: #### C VDTBH #### [facility] [address] [place] [address] Dr. Lior Buckley Hematocrit (Bld) [Volume fraction] 42.6 % Normal 42.0-54.0 [facility] Comment on above: Performed By: #### C VDTBH #### [facility] [address] [place] [address] Dr. Lior Buckley Hemoglobin (Bld) [Mass/Vol] 13.8 g/dL Critically low 14.0-18.0 [facility] Comment on above: Performed By: #### C VDTBH #### [facility] [address] [place] [address] Dr. Lior Buckley IG # 0.08 10e3/ul Critically high 0.00-0.03 [facility] Comment on above: Performed By: #### C VDTBH #### [facility] [address] [place] [address] Dr. Lior Buckley IG % 0.8 % Critically high 0.0-0.5 [facility] Comment on above: Performed By: #### C VDTBH #### [facility] [address] [place] [address] Dr. Lior Buckley LYMPH # 1.6 103/ul Normal 1.2-3.8 [facility] Comment on above: Performed By: #### C VDTBH #### [facility] [address] [place] [address] Dr. Lior Buckley Lymphocytes/100 WBC (Bld) 15.9 % Critically low 20.5-60.0 [facility] Comment on above: Performed By: #### C VDTBH #### [facility] [address] [place] [address] Dr. Lior Buckley MANUAL DIFF REQ NO Normal [facility] Comment on above: Performed By: #### C VDTBH #### [facility] [address] [place] [address] Dr. Lior Buckley MCH (RBC) [Entitic mass] 28.6 pg Normal 25.9-34.0 [facility] Comment on above: Performed By: #### C VDTBH #### [facility] [address] [place] [address] Dr. Lior Buckley MCHC (RBC) [Mass/Vol] 32.4 g/dL Normal 29.9-35.2 [facility] Comment on above: Performed By: #### C VDTBH #### [facility] [address] [place] [address] Dr. Lior Buckley MCV (RBC) [Entitic vol] 88.4 fL Normal 80.0-94.0 [facility] Comment on above: Performed By: #### C VDTBH #### [facility] [address] [place] [address] Dr. Lior Buckley MONO # 0.8 103/ul Normal 0.3-0.8 [facility] Comment on above: Performed By: #### C VDTBH #### [facility] [address] [place] [address] Dr. Lior Buckley Monocytes/100 WBC (Bld) 8.1 % Normal 1.7-12.0 [facility] Comment on above: Performed By: #### C VDTBH #### [facility] [address] [address] [address] Lior Buckley NEUT # 7.5 103/ul Critically high 1.4-6.5 [facility] Comment on above: Performed By: #### C VDTBH #### [facility] [address] [address] [address] Lior Buckley Neutrophils/100 WBC (Bld) 72.5 % Normal 43.0-75.0 [facility] Comment on above: Performed By: #### C VDTBH #### [facility] [address] [address] [address] Lior Buckley Platelet mean volume (Bld) [Entitic vol] 9.9 fL Normal 9.5-13.5 [facility] Comment on above: Performed By: #### C VDTBH #### [facility] [address] [place] [address] Dr. Lior Buckley PLT 210 103/ul Normal 150-450 [facility] Comment on above: Performed By: #### C VDTBH #### [facility] [address] [place] [address] Dr. Lior Buckley RBC 4.82 106/ul Normal 4.70-6.10 [facility] Comment on above: Performed By: #### C VDTBH #### [facility] [address] [place] [address] Dr. Lior Buckley WBC 10.3 103/ul Normal 4.0-11.0 [facility] Comment on above: Performed By: #### C VDTBH #### [facility] [address] [place] [address] CSPINE WO CONon [...] GEOFFREY CELAYA Date: 2022-05-26 20:14 Normal [facility] CT HEAD WO CONon 05-26-2022 CT [...] MINOO AGUILA Date: 2022-05-26 19:36 Normal [facility]on 05-16 SARS-CoV-2 (COVID-19) RNA GAMAL+probe Ql (Unsp spec) Not detected Normal NOT DETECTED [facility] Comment on above: Result Comment: When [...] for this test is supported by the Regulated Program Manager of Health and Human Service's declaration that [...] used). Performed By: #### C VDTBH #### [facility] [address] [place] [address] Dr. Lior Buckley D-DIMERon 05-26-2022 D-DIMER 1.27 mg/L FEU Critically high <=0.59 [facility] Comment on above: Performed By: #### D DIM #### [facility] [address] [place] [address] Dr. Lior Buckley D-DIMER COMMENTS SEE BELOW Normal The [facility] Comment on above: Result Comment: Incr [...] hospitalization. Performed By: #### D DIM #### [facility] [address] [place] [address] Dr. Lior Buckley FREE T4on 05-26-2022 Free T4 [Mass/Vol] 1.09 ng/dL Normal 0.76-1.46 [facility] Comment on above: Performed By: #### F T4 #### [facility] [address] [place] [address] Dr. Lior Buckley POINT OF CARE GLUCOSEon 05-16 Glucose [Mass/Vol] 109 mg/dL Critically high 74-106 T [facility] Comment on above: Performed By: #### C VDTBH #### [facility] [address] [place] [address] Dr. Lior Buckley PROF 14(COMP METB)on 022 Albumin [Mass/Vol] 4.1 g/dL Normal 3.4-5.0 [facility] Comment on above: Performed By: #### C VDTBH #### [facility] [address] [place] [address] Dr. Lior Buckley Albumin/Globulin [Mass ratio] 1.2 {ratio} Normal [facility] Comment on above: Performed By: #### C VDTBH #### [facility] [address] [place] [address] Dr. Lior Buckley ALP [Catalytic activity/Vol] 45 U/L Critically low 46-116 [facility] Comment on above: Performed By: #### C VDTBH #### [facility] [address] [place] [address] Dr. Lior Buckley ALT [Catalytic activity/Vol] 30 U/L Normal 16-63 [facility] Comment on above: Performed By: #### C VDTBH #### [facility] [address] [place] [address] Dr. Lior Buckley Anion gap [Moles/Vol] 11.5 mmol/L Normal [facility] Comment on above: Performed By: #### C VDTBH #### [facility] [address] [place] [address] Dr. Lior Buckley AST [Catalytic activity/Vol] 20 U/L Normal 15-37 [facility] Comment on above: Performed By: #### C VDTBH #### [facility] [address] [place] [address] Dr. Lior Buckley Bilirubin [Mass/Vol] 0.6 mg/dL Normal 0.2-1.0 [facility] Comment on above: Performed By: #### C VDTBH #### [facility] [address] [address] [address] Lior Buckley Calcium [Mass/Vol] 9.5 mg/dL Normal 8.5-10.1 [facility] Comment on above: Performed By: #### C VDTBH #### [facility] [address] [address] [address] Lior Buckley Chloride [Moles/Vol] 104 mmol/L Normal 98-107 [facility] Comment on above: Performed By: #### C VDTBH #### [facility] [address] [place] [address] Dr. Lior Buckley CO2 [Moles/Vol] 25.9 mmol/L Normal 21.0-32.0 [facility] Comment on above: Performed By: #### C VDTBH #### [facility] [address] [place] [address] Dr. Lior Buckley Creatinine [Mass/Vol] 2.21 mg/dL Critically high 0.70-1.30 [facility] Comment on above: Performed By: #### C VDTBH #### [facility] [address] [place] [address] Dr. Lior Buckley EGFR-AF PAKISTANI 36 mL/min/1.73m2 Critically low >=60 [facility] Comment on above: Performed By: #### C VDTBH #### [facility] [address] [place] [address] Dr. Lior Buckley EGFR-NON AF PAKISTANI 30 mL/min/1.73m2 Critically low >=60 [facility] Comment on above: Performed By: #### C VDTBH #### [facility] [address] [place] [address] Dr. Lior Buckley Globulin (S) [Mass/Vol] 3.3 g/dL Normal [facility] Comment on above: Performed By: #### C VDTBH #### [facility] [address] [address] [address] Lior Buckley Glucose [Mass/Vol] 115 mg/dL Critically high 74-106 [facility] Comment on above: Performed By: #### C VDTBH #### [facility] [address] [place] [address] Dr. Lior Buckley Potassium [Moles/Vol] 4.4 mmol/L Normal 3.5-5.1 [facility] Comment on above: Performed By: #### C VDTBH #### [facility] [address] [place] [address] Dr. Lior Buckley Protein [Mass/Vol] 7.4 g/dL Normal 6.4-8.2 [facility] Comment on above: Performed By: #### C VDTBH #### [facility] [address] [place] [address] Dr. Lior Buckley Sodium [Moles/Vol] 137 mmol/L Normal 136-145 [facility] Comment on above: Performed By: #### C VDTBH #### [facility] [address] [place] [address] Dr. Lior Buckley Urea nitrogen [Mass/Vol] 57.0 mg/dL Critically high 7.0-18.0 [facility] Comment on above: Performed By: #### C VDTBH #### [facility] [address] [place] [address] Dr. Lior Buckley Urea nitrogen/Creatinine [Mass ratio] 25.8 mg/mg Normal [facility] Comment on above: Performed By: #### C VDTBH #### [facility] [address] [place] [address] Dr. Lior Buckley TROPONIN, HIGH SENSITIVITYon 05-26-2022 HSTROP 8.4 pg/mL Normal 4.0-76.1 [facility] Comment on above: Result Comment: CUT- OFF POINTS HAVE BEEN ESTABLISHED BASED ON THE FOURTH UNIVERSAL DEFINITIONS OF MYOCARDIAL INFARCTION. THE UPPER REFERENCE LIMIT (URL) OF TROPONIN, DEFINED THE 99TH PERCENTILE OF cTnI DISTRIBUTION IN A REFERENCE POPULATION, HAS BEEN CONFIRMED THE DECISION THRESHOLD FOR PA DIAGNOSIS. Performed By: #### C VDTBH #### [facility] [address] [place], [place] [address] Dr. Lior Buckley TSHon 05-26-2022 TSH 1.911 uIU/mL Normal 0.358-3.740 [facility] Comment on above: Performed By: #### C VDTB #### [facility] [id number] [address] Lior Buckley XR CHEST 1 Von [...] RADHA MERINO Date: 2022-05-26 20:19 Normal [facility] Tobacco Screening.on 022 Adult depression screening assessment No [facility] 250 DO Work Phone: Fall risk assessment b) One or more fall s in the last year [facility] 250 DO Work Phone: Tobacco use status CPHS b) No [facility] 250 DO Work Phone: Vital Signs Date Time Vital Sign Value Performing Clinician Wayloni nina 04-07-2024 17:51-0400 Body height 182.88 cm [facility] 04-07-2024 17:51-0400 Body mass index (BMI) [Ratio] 32.7 kg/m2 [facility] 04-07-2024 17:51-0400 Body temperature 99.5 [degF] [facility] 04-07-2024 17:51-0400 Body weight 109.48 kg [facility] 04-07-2024 17:51-0400 Diastolic blood pressure 65 mm[Hg] [facility] 04-07-2024 17:51-0400 Heart rate 69 /min [facility] 04-07-2024 17:51-0400 Respiratory rate 18 /min [facility] 04-07-2024 17:51-0400 SaO2% (BldA) [Mass fraction] 97 % [facility] 04-07-2024 17:51-0400 Systolic blood pressure 104 mm[Hg] [facility] 07-29-2023 11:20-0400 Body height 180.34 cm Dusty A Naderer Work Phone: [facility] 250 DO Work Phone: 07-29-2023 11:20-0400 Body mass index (BMI) [Ratio] 32.92 kg/m2 Dusty A Naderer Work Phone: [facility] 250 DO Work Phone: 07-29-2023 11:20-0400 Body surface area Derived from formula 2.26 m2 Dusty A Naderer Work Phone: [facility] 250 DO Work Phone: 07-29-2023 11:20-0400 Body weight 107.05 kg Dusty A Naderer Work Phone: [facility] 250 DO Work Phone: 07-29-2023 11:20-0400 Diastolic blood pressure 62 mm[Hg] Dusty A Naderer Work Phone: [facility] 250 DO Work Phone: 07-29-2023 11:20-0400 Heart rate 66 /min Dusty A Naderer Work Phone: [facility] 250 DO Work Phone: 07-29-2023 11:20-0400 Systolic blood pressure 118 mm[Hg] Dusty A Naderer Work Phone: [facility] 250 DO Work Phone: 04-17-2022 10:22-0400 Body height 181.61 cm Dusty A Naderer Work Phone: [facility] 250 DO Work Phone: 04-17-2022 10:22-0400 Body mass index (BMI) [Ratio] 32.46 kg/m2 Dusty Alonso Refugioerer Work Phone: [facility] 250 DO Work Phone: 04-17-2022 10:22-0400 Body surface area Derived from formula 2.27 m2 Dusty Alonso Naderer Work Phone: [facility] 250 DO Work Phone: 04-17-2022 10:22-0400 Body weight 107.05 kg Dusty Alonso Refugioerer Work Phone: [facility] 250 DO Work Phone: 04-17-2022 10:22-0400 Diastolic blood pressure 76 mm[Hg] Dusty Alonso Refugioerer Work Phone: [facility] 250 DO Work Phone: 04-17-2022 10:22-0400 Heart rate 78 /min Dusty Celeste Hufferer Work Phone: [facility] 250 DO Work Phone: 04-17-2022 10:22-0400 Systolic blood pressure 120 mm[Hg] Dusty Alonso Refugioerer Work Phone: [facility] 250 DO Work Phone: Encounters Encounter Date Encounter Type Care Provider Facility Start: 07-27-2024 End: 07-27-2024 ambulatory DUSTY RUSH Not Available Start: 07-01-2024 End: 07-01-2024 [facility] Start: 05-05-2024 End: 05-05-2024 amb[facility] Start: 04-07-2024 End: 05-23-2024 ambulatory [facility] Work Phone: Start: 04-07-2024 End: 04-07-2024 Patient encounter procedure [facility] [place] Work Phone: Start: 07-29-2023 Office outpatient vi sit 25 minutes Dusty Rush Work Phone: [facility] 250 DO Work Phone: Start: 07-29-[address] Kris Harris Facility: Start: 01-26-2023 Office outpatient ne w 45 minutes Linden Garnica [facility] Start: 01-26-2023 End: 01-26-2023 ambulatory Linden Garnica Facility[facility] Start: 01-26-2023 End: 01-26-2023 ambulatory NON STAFF [facility] Work Phone: Start: 01-26-2023 End: 01-26-2023 Patient encounter procedure [facility] Start: 01-13-2023 Rx Renewal Dusty Rush Work Phone: [facility] 250 DO Work Phone: Start: 12-10-2022 End: 12-10-[address] DUSTY RUSH Facility:[facility] Start: 12-08-2022 End: 12-09-[address] DUSTY RUSH Facility:[facility] Start: 09-15-2022 End: 09-15-2022 ambulatory Osvaldo Almonte Facility[facility] Start: 09-15-2022 End: 09-15-2022 ambulatory NON STAFF [facility] Work Phone: Start: 09-15-2022 End: 09-15-2022 Patient encounter procedure MD Osvaldo Amlonte Work Phone: [facility] [address] Start: 08-05-2022 Rx Renewal Dusty Rush Work Phone: [facility] 250 DO Work Phone: Start: 05-28-2022 End: 05-29-[address] DUSTY RUSH Facility:[facility] Start: 05-26-2022 End: 05-27-[address] DUSTY RUSH Facility:[facility] Start: 04-17-2022 Office outpatient vi sit 15 minutes Dusty Rush Work Phone: [facility] 250 DO Work Phone: Start: 03-04-2022 Rx Renewal Kris Lopezdo george DO Work Phone: [facility] 250 DO Work Phone: Start: 12-30-2021 Rx Renewal Kris Lopezdo georeg DO Work Phone: [facility] 250 DO Work Phone: Start: 12-13-2021 Rx Renewal Kris Lopezdo george DO Work Phone: [facility] 250 DO Work Phone: Start: 08-21-2021 Rx Renewal Kris Peña doris DO Work Phone: [facility] 250 DO Work Phone: Start: 01-06-2019 Patient encounter procedure PROVIDER UNKNOWN Facility:[id number] Procedures Date Procedure Procedure Detail Performing Clinician Start: 01-26-2023 Plain X-ray of left elbow Start: 09-15-2022 MR lumbar spine wo con MD Osvaldo Alomnte Work Phone: Start: 09-15-2022 XR pre/post mri xray MD Osvaldo Almonte Work Phone: Start: 05-28-[address] DUSTY PALMA Comment on above: Performed By: #### V ITAD, PSASC #### [facility] [address] [place] [address] Dr. Lior Buckley Appendectomy Kris Harris DO [...] Kris Harris, Status: Pen, Time: 10:50 AM [facility] 250 DO Work Phone: Start: 04-23-2023 FUV, Provider: Kris Harris, Status: Pen, Time: 9:00 AM [facility], Provider: Kris Harris, Status: Pen, Time: 9:00 AM [facility] 250 DO Work Phone: Start: 04-17-2022 FUV, Provider: Kris Harris, Status: Pen, Time: 10:20 AM [facility], Provider: Kris Harris, Status: Pen, Time: 10:20 AM [facility] 250 DO Work Phone: Start: 02-12-2022 FUV, Provider: Kris Harris, Status: Pen, Time: 9:20 AM [facility]UV, Provider: Kris Harris, Status: Pen, Time: 9:20 AM [facility] 250 DO Work Phone: Immunizations Immunization Date Immunization Notes Care Provider Derek cerna 09-09-2022 Fluad Quadrivalent 0 .5 ML Intramuscular Prefilled Syringe Dusty Alonso [employer] Work Phone: [facility] 250 DO Work Phone: 12-13-2021 Moderna COVID-19 Vac cine 100 MCG/0.5ML Intramuscular Suspension Dusty Alonso Naderer Work Phone: [facility] 250 DO Work Phone: 08-29-2021 influenza, injectabl e, quadrivalent, preservative free Dusty A Naderer Work Phone: [facility] 250 DO Work Phone: 02-08-2021 Moderna COVID-19 Vac cine 100 MCG/0.5ML Intramuscular Suspension Dusty A Naderer Work Phone: [facility] 250 DO Work Phone: 01-09-2021 Moderna COVID-19 Vac cine 100 MCG/0.5ML Intramuscular Suspension Dusty A Naderer Work Phone: [place] [address] DO Work Phone: 07-28-2020 influenza, injectabl e, quadrivalent, preservative free Dusty A Naderer Work Phone: [place] [address] DO Work Phone: 07-17-2020 influenza virus vacc ine, unspecified formulation Kris Harris DO Work Phone: [place] [address] DO Work Phone: 07-17-2020 zoster vaccine, live Kris Harris DO Work Phone: [place] [address] DO Work Phone: 10-16-2019 zoster vaccine recombinant Kris Harris DO Work Phone: [place] [address] DO Work Phone: 08-16-2019 influenza virus vacc ine, unspecified formulation Kris Harris DO Work Phone: [place] [address] DO Work Phone: 07-17-2019 zoster vaccine recombinant Kris Harris DO Work Phone: [place] [address] DO Work Phone: 07-08-2019 influenza, injectabl e, quadrivalent, preservative free Dusty A Naderer Work Phone: [place] [address] DO Work Phone: 07-08-2019 zoster vaccine recombinant Dusty Alonso Naderer Work Phone: [place] [address] DO Work Phone: 05-11-2019 tetanus toxoid, redu efren diphtheria toxoid, and acellular pertussis vaccine, adsorbed Dusty Alonso Naderer Work Phone: [place] [address] DO Work Phone: 05-11-2019 zoster vaccine recombinant Dusty Alonso Nadindiar Work Phone: [place] [address] DO Work Phone: 07-17-2018 influenza virus vacc ine, unspecified formulation Kris Harris DO Work Phone: [place] [address] DO Work Phone: 07-09-2018 influenza, injectabl e, quadrivalent, preservative free Dusty Alonso Nadindiar Work Phone: [place] [address] DO Work Phone: 07-01-2018 pneumococcal polysaccharide vaccine, 23 valent Dusty Alonso Nadindiar Work Phone: [place] [address] DO Work Phone: 03-14-2018 tetanus toxoid, redu efren diphtheria toxoid, and acellular pertussis vaccine, adsorbed Dusty Alonso Nadindiar Work Phone: [place] [address] DO Work Phone: 07-09-2017 influenza, injectabl e, quadrivalent, preservative free Dusty Alonso Naderer Work Phone: [place] [address] DO Work Phone: 06-19-2017 influenza virus vacc ine, unspecified formulation Kris Harris DO Work Phone: [facility] 250 DO Work Phone: 09-14-2016 zoster vaccine, live Dusty Alonso Nadnoel Work Phone: [facility] 250 DO Work Phone: 08-20-2016 pneumococcal conjuga te vaccine, 13 valent Dusty Alonso Nadindiar Work Phone: [facility] 250 DO Work Phone: 08-12-2016 influenza, seasonal, injectable, preservative free Dusty Alonso Nadnoel Work Phone: [facility] Vehrity DO Work Phone: 11-16-2015 pneumococcal polysaccharide vaccine, 23 valent Kris Harris DO Work Phone: [place] [address] DO Work Phone: 11-16-2015 zoster vaccine, live Kris Lopezdon DO Work Phone: [place] [address] DO Work Phone: 08-30-2015 influenza virus vacc ine, unspecified formulation Kris Harris DO Work Phone: [facility] 250 DO Work Phone: 08-16-2015 influenza virus vacc ine, unspecified formulation Kris Harris DO Work Phone: [facility] 250 DO Work Phone: 07-17-2014 influenza virus vacc ine, unspecified formulation Kris Harris DO Work Phone: [facility] 250 DO Work Phone: 07-29-2013 influenza virus vacc ine, unspecified formulation Kris Harris DO Work Phone: [facility] 250 DO Work Phone: 07-27-2013 influenza virus vacc ine, unspecified formulation Kris Harris DO Work Phone: [facility] 250 DO Work Phone: 01-04-2010 novel influenza-H1N1 -09, preservative-free, injectable Dusty Rush Work Phone: [facility] 250 DO Work Phone: Payers Date Payer Category Payer Self-pay 1959 Private Health Insurance [facility] [id number] 1955 Unknown [id number] 2.16.8 [id number] 1955 Unknown [id number] 2.16.84 [id number] 1955 Unknown [id number] 2.16.84 [id number] 1955 Unknown [id number] 2.16.84 [id number] 1955 Unknown [id number] 2.16.84 [id number] 1955 Unknown [id number] 2.16. [id number] 1955 Unknown [id number] 2.16.8 [id number] 1955 Unknown [id number] 2.16.8 [id number] 1955 Unknown [id number] 2.16.84 [id number] Unknown [id number] Unknown Unknown [facility] [id number] Unknown [id number] 2.16.8 [id number] Unknown [id number] 2.16.8 [id number] Social History Date Type Detail Facility Occasional alcohol use Occasional alcohol use -[facility] 250 DO Work Phone: Comment on above: 2 cups coffee daily; Quit around the year , 1994; Start: 1955 Sex Assigned At Male F [facility] Sex Assigned At Sex Assigned At Bir th [facility] [employer] Other Evaluation note 01-26-2023 Note Date & [...] as documented in the electronic medical record. [facility] [employer] Other Evaluation note Note Date & Type Note Facility Evaluation note No assessment information availa [facility] Work Phone: Evaluation note Note Date & Type Note Facility Evaluation note Diagnosis Onset Date Sinusitis, acute, maxillary acute [facility] Work Phone: History general Narrative - Reported Note Date & Type Note Facility History general Narrative - Reported Type Medical History hypertension Medical History hyperlipidemia Medical History Diabetes type 2 Surgical History hear stents x2 [employer] Other Summary Purpose Family History No Family [...] was normal in 2021. PCI's date back [id number]. * He has underlying diabetes, chronic kidney [...] was normal in 2021. PCI's date back [id number]. * He has underlying diabetes, chronic kidney [...] section and content) DATE CREATED AUTHOR 01/28/2019 [facility] DATE CREATED AUTHOR AUTHOR'S ORGANIZ ATION 12/25/2022 [facility] DATE CREATED AUTHOR AUTHOR'S ORGANIZ ATION 01/31/2023 [facility] DATE CREATED AUTHOR AUTHOR'S ORGANIZ ATION 07/30/2023 [facility] DATE CREATED AUTHOR AUTHOR'S ORGANIZ ATION 07/31/2023 [employer] DATE CREATED AUTHOR AUTHOR'S ORGANIZ ATION 07/03/2024 [facility] DATE CREATED AUTHOR AUTHOR'S ORGANIZ ATION 07/28/2024 [facility] [employer] Care Teams (unrecognized sec [...] BE BASED ON THE PRIMARY CLINICAL RECORDS. [facility] [employer] [facility]. provides no warranty or guarantee of the accuracy or completeness of information in this document.
--- NOTE | 2024-08-05 13:09 | PC.NURSE ---
Nursing Note Cardiac Stress Test Reviewed: Medication, allergies and patient history reviewed. Stress Test: [ x] Patient tolerated stress test well. [ ] Patient unable to tolerate walking on treadmill. Switched to Lexiscan stress test. [ x] No chest pain noted per patient [ ] Chest pain that resolved prior to leaving stress lab. [ ] No dyspnea noted. [x ] Dyspnea that resolved prior to leaving stress lab. [x ] Patient left stress lab asymptomatic and hemodynamically stable. [ ] Patient taken to the Emergency Room due to non-resolving symptoms following stress test. [ ] Patient achieved target heart rate. [ ] Patient unable to achieve target heart rate. [x ] Aminophylline administered as reversal agent to Lexiscan (Regadenoson). [ ] Nitro administered. Nursing Comments: Upon arrival in the room patients bp is 106/54 manually. Spoke with Duc Villagran NP re: low bp prior to leonard scan. Per her recommendation patient was given a bottle of water to drink while prior to proceeding with the test. Patient repeat bp after 2 bottles of water and a trip to the bathroom was 108/60. Patient does not report any symptoms of being light headed or dizzy during this time. Lexiscan is administered and his blood pressure decreased to 86/50. Patient reported some shortness of breath, a mild fullness in his head and some nausea. Aminophylline was administered and his blood pressure increased to 106/58. Patient reports feeling back to baseline prior to leaving the stress lab. All previous symptoms have resolved per his report.
[2024-08-05] MEDS: AMINOPHYLLINE 250 MG/10 ML VIAL IVP (13:47)
[2024-08-05] MEDS: REGADENOSON 0.4 MG/5 ML SYRINGE IV (14:36)
== END 2024-08-05 10:19 | disposition home or self-care (01) ==
LOC: NM 10:18
PROVIDERS: PCP Family Medicine; Visit Provider Family Medicine
DX: R07.2 Precordial pain (principal); R53.83 Other fatigue; I25.10 Atherosclerotic heart disease of native coronary artery without angina pectoris; E11.65 Type 2 diabetes mellitus with hyperglycemia; I10 Essential (primary) hypertension
CPT/HCPCS: 78452; 93017; A9500; J0280; J2785

== ENCOUNTER 2024-08-08 14:03 | Emergency (ER) | payer MEDICARE, SELFPAY ==
[2024-08-08] VITALS (29 sets, daily range): BP systolic 106–133; BP diastolic 54–78; PULSE 54–67; TEMP 36.5; O2SAT 87–100; BMI 29.2
[2024-08-08 14:59] LABS: Alanine Aminotransferase 25 U/L (16-63); Albumin Globulin Ratio 0.9; Albumin Level 3.4 g/dL (3.4-5.0); Alkaline Phosphatase 49 U/L (46-116); Aspartate Amino Transferase 27 U/L (15-37); BUN Creatinine Ratio 10.8; Bilirubin Total 0.6 mg/dL (0.2-1.0); Calcium 10.2 mg/dL (8.5-10.1); Carbon Dioxide 21.8 mmol/L (21.0-32.0); Chloride 99 mmol/L (98-107); Estimated GFR (African America 9 (>=60); Estimated GFR (Non-African Ame 7 (>=60); Globulin 3.7 g/dL; Glucose 106 mg/dL (74-106); Potassium 4.8 mmol/L (3.5-5.1); Sodium 133 mmol/L (136-145); Total Protein 7.1 g/dL (6.4-8.2)
[2024-08-08 15:00] LABS: Basophils Absolute Auto 0.1 10^3/uL (0.0-0.1); Eosinophils Absolute Auto 0.6 10^3/uL (0.0-0.7); Eosinophils Percent Auto 7.1 % (0.9-7.0); Hematocrit 35.1 % (42.0-54.0); Hemoglobin 11.5 g/dL (14.0-18.0); Immature Granulocytes Abs Auto 0.04 10^3/uL (0.00-0.03); Immature Granulocytes Pct Auto 0.5 % (0.0-0.5); Lymphocytes Absolute Auto 1.4 10^3/uL (1.2-3.8); Lymphocytes Percent Auto 16.8 % (20.5-60.0); Mean Corpuscular HGB Conc 32.8 g/dL (29.9-35.2); Mean Corpuscular Hemoglobin 29.4 pg (25.9-34.0); Mean Corpuscular Volume 89.8 fL (80.0-94.0); Mean Platelet Volume 10.1 fL (9.5-13.5); Monocytes Absolute Auto 0.7 10^3/uL (0.3-0.8); Monocytes Percent Auto 8.7 % (1.7-12.0); Neutrophils Absolute Auto 5.5 10^3/uL (1.4-6.5); Neutrophils Percent Auto 65.9 % (43.0-75.0); Platelet Count 287 10^3/uL (150-450); Red Blood Count 3.91 10^6/uL (4.70-6.10); Red Cell Distribution Width 14.6 % (11.0-15.0); White Blood Count 8.4 10^3/uL (4.0-11.0)
[2024-08-08 15:35] LABS: Troponin I High Sensitivity 17.2 pg/mL (4.0-76.1)
[2024-08-08] MEDS: 0.9 % SODIUM CHLORIDE 1,000 ML 1000 ML IV ×2 (15:35→16:40)
--- NOTE | 2024-08-08 15:40 | ECG_ITS ---
[facility] Test Date: 2024-08-08 Pat Name: EMILEE CASTAÑEDA Department: Room: - Gender: Male Planning Management It Specialist: : 1955 Requested By: MOMO RUSH Order Number: [id number] Reading MD: TAMICA KNOX Measurements Intervals [place] Rate: 55 P: 13 [place]: 178 QRS: 1 QRSD: 94 T: -53 QT: 388 QTc: 378 Interpretive Statements 1100 Sinus rhythm 1102 Sinus arrhythmia 4068 Nonspecific Twave abnormality 8102 Low QRS voltage in chest leads 9130 borderline ECG Electronically Signed On 08-08-2024 22:40:40 EDT by TAMICA KNOX
--- NOTE | 2024-08-08 15:40 | ED_ITS ---
HPI - Abdominal Pain General Chief Complaint: Abdominal Pain Stated Complaint: ABDOMNIAL PAIN Time Seen by Provider: 08/08/24 14:16 Source: patient Mode of arrival: Wheelchair Limitations: no limitations History of Present Illness HPI narrative: The patient is a 68-year-old male who is coming to the ER after he was recently diagnosed at almost 6 days ago with acute cholecystitis, the patient apparently has been diagnosed with that as outpatient after primary care ultrasound he also had a stress test done to make sure he has been cleared for preop. The patient was planned for surgery next month but he has been having some abdominal pain mostly epigastric on and off, a lot of the time associated with eating and he mentioned that he also have diarrhea for the last couple weeks The patient spoke with his surgeon and he told him to come to the ER to be evaluated Related Data Home Medications ?Medication ?Instructions ?Recorded ?Confirmed amoxicillin 875 mg-potassium 1 tab PO BID 08/08/24 08/08/24 clavulanate 125 mg tablet aspirin 81 mg tablet,delayed 81 mg PO DAILY 08/08/24 08/08/24 release (Adult Aspirin Regimen) atenolol 100 mg tablet 100 mg PO DAILY 08/08/24 08/08/24 dapagliflozin propanediol 10 mg 10 mg PO DAILY 08/08/24 08/08/24 tablet (Farxiga) dulaglutide 0.75 mg/0.5 mL 0.75 mg subcut QWEEK 08/08/24 08/08/24 subcutaneous pen injector (Trulicity) fenofibrate nanocrystallized 145 145 mg PO DAILY 08/08/24 08/08/24 mg tablet glipizide 10 mg tablet 10 mg PO BID 08/08/24 08/08/24 lisinopril 2.5 mg tablet 2.5 mg PO DAILY 08/08/24 08/08/24 loratadine 5 mg-pseudoephedrine ER tab PO 08/08/24 120 mg tablet,extended release,12hr (Allergy and Congestion Relief) metformin 1,000 mg tablet 1,000 mg PO BID 08/08/24 08/08/24 pioglitazone 45 mg tablet 45 mg PO DAILY 08/08/24 08/08/24 rosuvastatin 20 mg tablet 20 mg PO DAILY 08/08/24 08/08/24 triamterene 75 1 tab PO DAILY 08/08/24 08/08/24 mg-hydrochlorothiazide 50 mg tablet Allergies Allergy/AdvReac Type Severity Reaction Status Date / Time moxifloxacin [From Avelox] Allergy Severe Anaphylaxis Verified 08/08/24 14:10 Review of Systems ROS Status of ROS 10 or more systems reviewed and unremark able except as noted in history and below [facility] Medical History (Updated 08/08/24 @ 16:07 by Kenji Underwood RN) Neuropathy ?G62.9 - Polyneuropathy, unspecified (ICD-10) Hypertension ?I10 - Essential (primary) hypertension (ICD-10) Gall bladder inflammation ?K81.9 - Cholecystitis, unspecified (ICD-10) Diabetes ?E11.9 - Type 2 diabetes mellitus without complications (ICD-10) Surgical History (Updated 08/08/24 @ 16:07 by Kenji Underwood RN) Stented coronary artery ?Z95.5 - Presence of coronary angioplasty implant and graft (ICD-10) Social History Little interest or pleasure in doing things: not at all Feeling down, depressed, or hopeless: not at all Exam Narrative Exam Narrative: Nurses notes and vital signs reviewed and patient is not hypoxic. General: Well-appearing and in no apparent distress. Skin: Warm, dry, no pallor noted. No rash. Head: Normocephalic, atraumatic. Neck: Supple, non-tender. Eye: Pupils are equal, round and EOMI. No scleral icterus. Ears, Nose, Mouth, and Throat: TM are clear, no nasal mucosal hypertrophy. Oral mucosa is moist, no posterior oropharynx erythema, uvula is mid-line Cardiovascular: Regular Rate and Rhythm without murmur, gallop or rub. Respiratory: No accessory muscle use or respiratory distress. Lungs are clear to auscultation, no wheezing, rales or rhonchi Chest Wall: no tenderness Back: No midline thoracic or lumbar vertebral tenderness. No CVA tenderness Musculoskeletal: normal ROM, no calf or popliteal tenderness, no lower extremity edema/swelling GI: Abdomen is soft, non-distended. Normal bowel sounds. No masses appreciated. No tenderness to palpation. No rebound, guarding, or rigidity noted. Neurological: A&O x4. No cranial nerve dysfunction observed. No truncal ataxia. Moves all extremities. Sensation intact. Psychiatric: Cooperative and interactive. Normal mood and affect. Constitutional Vital Signs, click to edit/add: Last Vital Signs Temp 97.7 F 08/08/24 14:10 Pulse 58 L 08/08/24 17:12 Resp 18 08/08/24 17:12 BP 120/59 08/08/24 17:12 Pulse Ox 99 08/08/24 17:12 O2 Del Method Room Air 08/08/24 14:10 Course Vital Signs Vital signs: Vital Signs Temperature 97.7 F 08/08/24 14:10 Pulse Rate 66 08/08/24 14:10 Respiratory Rate 18 08/08/24 14:10 Blood Pressure 120/65 08/08/24 14:10 Pulse Oximetry 100 08/08/24 14:10 Oxygen Delivery Method Room Air 08/08/24 14:10 Temperature 97.7 F 08/08/24 14:10 Pulse Rate 58 L 08/08/24 17:12 Respiratory Rate 18 08/08/24 17:12 Blood Pressure 120/59 08/08/24 17:12 Pulse Oximetry 99 08/08/24 17:12 Oxygen Delivery Method Room Air 08/08/24 14:10 MDM - Abdominal Pain MDM Narrative Medical decision making narrative: The patient blood workup showed that he have acute renal failure with a creatinine of 7 His last creatinine was 2.9 The patient acute renal failure mostly secondary dehydration specially that the patient has been having diarrhea for the last 2 weeks I discussed the case with the general surgeon Dr. Grove and he mentioned that the patient have positive stress test when he was done for preop clearance and the patient will need to have cardiology clearance as well The patient case was discussed with Dr. Harris the digital production operator taking care of the patient in [facility] and he agreed the patient need to be transferred to [facility] to be evaluated for his acute renal failure as well as as his positive stress test The patient was started on IV fluid he was provided with at least 2 L of fluid before getting transferred The patient was accepted by Dr. Tobar in [facility] Lab Data Labs: Lab Results 08/08/24 Range/Units 14:16 WBC 8.4 (4.0-11.0) 10^3/uL RBC 3.91 L (4.70-6.10) 10^6/uL Hgb 11.5 L (14.0-18.0) g/dL Hct 35.1 L (42.0-54.0) % MCV 89.8 (80.0-94.0) fL MCH 29.4 (25.9-34.0) pg MCHC 32.8 (29.9-35.2) g/dL RDW 14.6 (11.0-15.0) % Plt Count 287 (150-450) 10^3/uL MPV 10.1 (9.5-13.5) fL Neut % (Auto) 65.9 (43.0-75.0) % Lymph % (Auto) 16.8 L (20.5-60.0) % [place] % (Auto) 8.7 (1.7-12.0) % Eos % (Auto) 7.1 H (0.9-7.0) % Baso % (Auto) 1.0 (0.2-2.0) % Neut # (Auto) 5.5 (1.4-6.5) 10^3/uL Lymph # (Auto) 1.4 (1.2-3.8) 10^3/uL [place] # (Auto) 0.7 (0.3-0.8) 10^3/uL Eos # (Auto) 0.6 (0.0-0.7) 10^3/uL Baso # (Auto) 0.1 (0.0-0.1) 10^3/uL Abs Immat Gran (auto) 0.04 H (0.00-0.03) 10^3/uL Imm/Tot Granulo (auto) 0.5 (0.0-0.5) % Sodium 133 L (136-145) mmol/L Potassium 4.8 (3.5-5.1) mmol/L Chloride 99 (98-107) mmol/L Carbon Dioxide 21.8 (21.0-32.0) mmol/L Anion Gap 17.0 BUN 82.0 H* (7.0-18.0) mg/dL Creatinine 7.60 H* (0.70-1.30) mg/dL Est GFR ( Amer) 9 L (>=60) Est GFR (Non-Af Amer) 7 L (>=60) BUN/Creatinine Ratio 10.8 Glucose 106 (74-106) mg/dL Calcium 10.2 H (8.5-10.1) mg/dL Total Bilirubin 0.6 (0.2-1.0) mg/dL AST 27 (15-37) U/L ALT 25 (16-63) U/L Alkaline Phosphatase 49 (46-116) U/L Troponin I High Sens 17.2 (4.0-76.1) pg/mL Total Protein 7.1 (6.4-8.2) g/dL Albumin 3.4 (3.4-5.0) g/dL Globulin 3.7 g/dL Albumin/Globulin Ratio 0.9 Lipase 156.0 H (16.0-77.0) U/L Discharge Plan Discharge Chief Complaint: Abdominal Pain Clinical Impression: LAVON (acute kidney injury), Abdominal pain Patient Disposition: [facility] Time of Disposition Decision: 17:59 Discharge location: [facility]
--- NOTE | 2024-08-08 19:01 | PC.NURSE ---
Report called to [facility] 3 syder talked with charge nurse. Verbal report given with no questions.
== END 2024-08-08 19:16 | disposition short-term general hospital (02) ==
PROVIDERS: Emergency Provider Emergency Medicine; PCP Family Medicine
DX: N17.9 Acute kidney failure, unspecified (principal); R10.9 Unspecified abdominal pain
CPT/HCPCS: 36415; 80053; 83690; 84484; 85025; 93005; 96360; 99285

== ENCOUNTER 2024-09-28 12:40 | Outpatient (OUT) | payer MEDICARE, SELFPAY ==
--- NOTE | 2024-09-28 12:58 | CT_ITS ---
[address] [address] Patient Name: EMILEE CASTAÑEDA MRN: [id number] date: 1955 Sex: M Assigned Patient Location: CT Current Patient Location: CT Accession/Order Number: [id number] Exam Date: 09/28/2024 14:00 Report Date: 09/28/2024 15:53 At the request of: LAVELLE CRUZ Procedure: CT abdomen pelvis wo con EXAM: CT scan of the abdomen and pelvis without contrast. Oral contrast. Dose reduction technique used: Automated exposure control and/or adjustment of the mA and/or kV according to patient size and/or use of iterative reconstruction technique. REASON FOR EXAM: Renal Mass N28.89 COMPARISON: None FINDINGS: Wall thickening along the proximal duodenum. Right quadrant fat stranding along the duodenum. Heterogenous the intermediate/high attenuation mostly exophytic midpole left renal mass measuring 3.9 x 3.8 cm. Colonic diverticulosis. Upper pole left renal cyst. Biliary stent, this is partially migrated into the duodenum with the stent only within the common bile duct at the level of the pancreatic head. Cholecystectomy. Low-attenuation lesion in the posterior right hepatic lobe measuring 2.9 x 1.5 cm. Lipoma along the distalmost right ileus psoas musculature measuring up to 4.3 cm maximal axial diameter where visible. Lumbar scoliosis. Enlarged prostate. 3 mm right lower lobe solid pulmonary nodule. 3 mm right middle lobe solid pulmonary nodule. No renal, ureteral or bladder calculi. No hydronephrosis. Appendectomy. No free fluid in the abdomen or pelvis. No free intraperitoneal air. No dilated or thickened loops of small bowel or colon. Liver, pancreas, spleen, bilateral kidneys, and bilateral adrenal glands are otherwise unremarkable within the limitations of noncontrast CT. No lymphadenopathy in the abdomen or pelvis. Remainder unremarkable. CT/CT abdomen pelvis wo con IMPRESSION: 1. Duodenal wall thickening could be due to duodenitis, peptic ulcer or malignancy, correlate clinically. 2. Left renal heterogenous mass could represent a cyst with internal hemorrhage or debris although a solid mass cannot be excluded. Consider further evaluation with contrast-enhanced CT or MRI. 3. Indeterminate low-attenuation right hepatic lesion. This could be better evaluated with contrast-enhanced MRI. 4. Tiny indeterminate right pulmonary nodules. Electronically authenticated by: KHUSHBU BEARD Date: 09/28/2024 15:53
[2024-09-28 13:28] LABS: Estimated GFR (African America 34 (>=60 mL/min/1.73m^2); Estimated GFR (Non-African Ame 28 (>=60 mL/min/1.73m^2)
== END 2024-09-28 12:41 | disposition home or self-care (01) ==
LOC: CT 12:42
PROVIDERS: PCP Family Medicine; Visit Provider Urology
DX: N28.89 Other specified disorders of kidney and ureter (principal)
CPT/HCPCS: 36415; 74176; 82565